=== PATIENT | male | born 1965 | race Caucasian/White ===

== ENCOUNTER 2016-10-01 18:59 | Inpatient (IN) | payer SELFPAY ==
[2016-10-01] VITALS (7 sets, daily range): BP systolic 146–168; BP diastolic 84–100
[~2016-10-01] VITALS: Ht 172.7 cm; Wt 101.2 kg
[~2016-10-01 18:59] MED LIST: AMIODARONE 150 MG/3 ML VIAL ONE; EPINEPHRINE 1 MG/10 ML SYRINGE. ONE
[2016-10-01] MEDS ORDERED: HEPARIN for IV BOLUS 10,000 UNIT/10 ML VIAL. ONE ×2 (19:13→19:34)
[2016-10-01] MEDS ORDERED: ASPIRIN 325 MG TABLET PO ONE (19:15)
[2016-10-01] MEDS ORDERED: HEPARIN for IV BOLUS 10,000 UNIT/10 ML VIAL. IV ONE (19:15)
[2016-10-01 19:19] LABS: BASO # 0.2 x10^3/uL (0.0-0.2); BASO % 1 % (0-3); EOS % 3 % (0-3); HEMATOCRIT 50.9 % (39.0-53.0); HEMOGLOBIN 17.6 g/dL (13.0-17.5); LYMPH # 4.1 x10^3/uL (1.0-4.8); LYMPH % 24 % (24-48); MEAN CORPUSCULAR HEMOGLOBIN 32 pg (25-35); MEAN CORPUSCULAR HGB CONC 35 g/dL (31-37); MEAN CORPUSCULAR VOLUME 93 fL (79-100); MONO % 6 % (0-9); NEUT % 66 % (31-73); PLATELET COUNT 214 x10^3/uL (140-400); RED BLOOD COUNT 5.47 x10^6/uL (4.30-5.70); RED CELL DISTRIBUTION WIDTH 13.6 % (11.5-14.5); WHITE BLOOD COUNT 17.2 x10^3/uL (4.0-11.0)
[2016-10-01] MEDS: NITROGLYCERIN SUBLINGUAL 0.4 MG BOTTLE OF 25. SL PRN ×2 (19:19→19:25)
--- NOTE | 2016-10-01 19:26 | PHYS DOC ---
Past Medical History Past Medical History: Asthma, CAD, High Cholesterol, Hypertension Past Surgical History: Angioplasty, Appendectomy, Coronary Bypass Surgery Additional Past Surgical Histo: Left shoulder replacementx2 Smoking: Cigarettes Alcohol Use: Occasionally Drug Use: None Adult General Chief Complaint Chief Complaint: CHEST PAIN-CARDIAC NATURE HPI HPI Patient is a 50 year old male who presents with central crushing chest pain radiating to left arm, associated with dyspnea. States this feels exactly like prior VT pain; states he has had approx 15 MIs in the past and followed at in the past. Was getting yearly cardiac caths, but did not in the past 2 years. He denies f/c, n/v, hemoptysis, leg pain or swelling, abdominal pain, back pain, headache, numbness, tingling, weakness. Review of Systems Review of Systems Constitutional: Denies fever or chills [] Eyes: Denies change in visual acuity, redness, or eye pain [] HENT: Denies nasal congestion or sore throat [] Respiratory: Denies cough [] Cardiovascular: No additional information not addressed in HPI [] GI: Denies abdominal pain, nausea, vomiting, bloody stools or diarrhea [] : Denies dysuria or hematuria [] Musculoskeletal: Denies back pain or joint pain [] Integument: Denies rash or skin lesions [] Neurologic: Denies headache, focal weakness or sensory changes [] Endocrine: Denies polyuria or polydipsia [] Current Medications Current Medications Current Medications Medications (Trade) Dose Ordered Sig/[place] Start Time Stop Time Status Last Admin Dose Admin Amiodarone HCl 150 mg/Dextrose 103 ml @ 618 mls/hr 1X ONCE 10/01/16 19:30 10/01/16 19:39 DC Amiodarone HCl 900 mg/Dextrose 518 ml @ 0 mls/hr CONT PRN 10/01/16 19:30 Aspirin (Dyana Aspirin) 325 mg 1X ONCE 10/01/16 19:15 10/01/16 19:16 DC 10/01/16 19:15 325 MG Bivalirudin (Angiomax) 250 mg STK-MED ONCE 10/01/16 19:34 10/01/16 19:35 DC Fentanyl Citrate (Fentanyl 5ml Vial) 250 mcg STK-MED ONCE 10/01/16 19:35 10/01/16 19:36 DC Heparin Sodium (Porcine) 10,000 unit STK-MED ONCE 10/01/16 19:34 10/01/16 19:35 DC Heparin Sodium/ Sodium Chloride 1,000 ml @ As Directed STK-MED ONCE 10/01/16 19:33 10/01/16 19:34 DC Iohexol (Omnipaque 350 Mg/ml) 100 ml STK-MED ONCE 10/01/16 19:43 10/01/16 19:44 DC Iohexol 100 ml 100 ml STK-MED ONCE 10/01/16 19:33 10/01/16 19:34 DC Lidocaine HCl 20 ml STK-MED ONCE 10/01/16 19:33 10/01/16 19:34 DC Magnesium Sulfate/ Dextrose (Magnesium Sulfate PREMIX 2GM) 50 ml @ 25 mls/hr 1X ONCE 10/01/16 19:30 10/01/16 21:29 Midazolam HCl (Versed) 5 mg STK-MED ONCE 10/01/16 19:34 10/01/16 19:35 DC Morphine Sulfate 5 mg 5 mg 1X ONCE 10/01/16 19:30 10/01/16 19:31 DC Nitroglycerin (Nitrostat) 0.4 mg PRN Q5MIN PRN 10/01/16 19:15 10/01/16 19:25 0.4 MG Allergies Allergies Allergies Coded Allergies Type Severity Reaction Last Updated Verified No Known Drug Allergies 10/01/16 No Physical Exam Physical Exam Constitutional: Well developed, well nourished, no acute distress, non-toxic appearance. [] HENT: Normocephalic, atraumatic, bilateral external ears normal, oropharynx moist, nose normal. [] Eyes: PERRLA, EOMI, conjunctiva normal, no discharge. [] Neck: Normal range of motion, no tenderness, supple, no stridor. [] Cardiovascular:Heart rate regular rhythm, no murmur, equal distal pulses [] Lungs & Thorax: Bilateral breath sounds clear to auscultation [] Abdomen: Bowel sounds normal, soft, no tenderness. [] Skin: Warm, dry, no erythema, no rash. [] Back: No tenderness, no CVA tenderness. [] Extremities: No tenderness, ROM intact, no edema. [] Neurologic: Alert and oriented X 3, normal motor function, normal sensory function, no focal deficits noted. [] Psychologic: Affect normal, judgement normal, mood normal. [] Current Patient Data Vital Signs Vital Signs Date Time Temp Pulse Resp B/P Pulse Ox O2 Delivery O2 Flow Rate FiO2 10/01/16 19:25 97 197/97 Lab Values Laboratory Tests Test 10/01/16 19:00 10/01/16 19:12 White Blood Count 17.2x10^3/uL (4.0-11.0) H Red Blood Count 5.47x10^6/uL (4.30-5.70) Hemoglobin 17.6g/dL (13.0-17.5) H Hematocrit 50.9% (39.0-53.0) Mean Corpuscular Volume 93fL (79-100) Mean Corpuscular Hemoglobin 32pg (25-35) Mean Corpuscular Hemoglobin Concent 35g/dL (31-37) Red Cell Distribution Width 13.6% (11.5-14.5) Platelet Count 214x10^3/uL (140-400) Neutrophils (%) (Auto) 66% (31-73) Lymphocytes (%) (Auto) 24% (24-48) Monocytes (%) (Auto) 6% (0-9) Eosinophils (%) (Auto) 3% (0-3) Basophils (%) (Auto) 1% (0-3) Neutrophils # (Auto) 11.4x10^3uL (1.8-7.7) H Lymphocytes # (Auto) 4.1x10^3/uL (1.0-4.8) Monocytes # (Auto) 0.9x10^3/uL (0.0-1.1) Eosinophils # (Auto) 0.6x10^3/uL (0.0-0.7) Basophils # (Auto) 0.2x10^3/uL (0.0-0.2) Sodium Level 143mmol/L (136-145) Potassium Level 3.7mmol/L (3.5-5.1) Chloride Level 105mmol/L (98-107) Carbon Dioxide Level 28mmol/L (21-32) Anion Gap 10 (6-14) Blood Urea Nitrogen 23mg/dL (8-26) Creatinine 1.2mg/dL (0.7-1.3) Estimated GFR (Cockcroft-Gault) 63.6 Glucose Level 105mg/dL (70-99) H Calcium Level 9.1mg/dL (8.5-10.1) POC Troponin I 0.00ng/ml (<0.08) Laboratory Tests 10/01/16 19:00 Laboratory Tests 10/01/16 19:00 EKG EKG EKG as interpreted by me consistent with STEMI, ST elevation in V3 and V4, mild depression and leads 1 and aVL, sinus rhythm with incomplete right bundle- branch block, normal intervals, no ectopy Course & Med Decision Making Course & Med Decision Making Pertinent Labs and Imaging studies reviewed. (See chart for details) Code STEMI was paged 1907. Discussed case with Dr. Britt, cardiology, at 1909. Patient was given SL nitro with some improvement in HTN to 190s. He was given ASA and Heparin bolus. He then had V tach arrest and was defibrillated x1 with <2min of chest compressions and had ROSC with return of normal mentation. Amiodarone 150mg bolus given, and amiodarone gtt ordered. Also ordered Magnesium 2g for concern of polymorphic V tach. Initial labs are unremarkable. He left the ED at 1942 to the Cardiac laboratory sampler with Dr. Britt. Discussed case with Dr. Cook, who will admit. Dragon Disclaimer Dragon Disclaimer This electronic medical record was generated, in whole or in part, using a voice recognition dictation system. Critical Care Time Critical care time was 35 minutes exclusive of procedures. Departure Departure Impression: Primary Impression: STEMI (ST elevation myocardial infarction) Additional Impressions: Ventricular tachyarrhythmia Cardiac arrest Disposition: ADMITTED INPATIENT Condition: CRITICAL Problem Qualifiers Primary Impression: STEMI (ST elevation myocardial infarction) Involved coronary artery: unspecified coronary artery Qualified Code: I21.3 - ST elevation (STEMI) myocardial infarction of unspecified site Meg VERMA MD Oct 01, 2016 19:25
[2016-10-01] MEDS ORDERED: AMIODARONE 150 MG in IV DEXTROSE 5% 100 ML IV ONE (19:30)
[2016-10-01] MEDS ORDERED: AMIODARONE 900 MG in IV DEXTROSE 5% 500 ML IV PRN (19:30)
[2016-10-01] MEDS ORDERED: MAGNESIUM SULFATE 2GM 50 ML IV ONE (19:30)
[2016-10-01] MEDS ORDERED: MORPHINE SULFATE 10 MG/ML VIAL. IV ONE (19:30)
[2016-10-01] MEDS ORDERED: LIDOCAINE 2% 20 ML VIAL. ONE (19:33)
[2016-10-01] MEDS ORDERED: IOHEXOL 350 MG/ML 100ML VIAL. ONE ×2 (19:33→19:43)
[2016-10-01] MEDS ORDERED: MIDAZOLAM HCL/PF 5 MG/5 ML VIAL ONE (19:34)
[2016-10-01] MEDS ORDERED: BIVALIRUDIN 250 MG VIAL. IV ONE (19:34)
[2016-10-01] MEDS ORDERED: FENTANYL PF 250 MCG/5 ML VIAL. ONE (19:35)
[2016-10-01 19:38] LABS: CALCIUM 9.1 mg/dL (8.5-10.1); CREATININE 1.2 mg/dL (0.7-1.3); GFR 63.6; POTASSIUM 3.7 mmol/L (3.5-5.1)
[2016-10-01] MEDS ORDERED: LIDOCAINE 2% 20 ML VIAL. IJ ONE (20:30)
[2016-10-01] MEDS ORDERED: FENTANYL PF 250 MCG/5 ML VIAL. IV ONE (20:30)
[2016-10-01] MEDS ORDERED: MIDAZOLAM HCL/PF 5 MG/5 ML VIAL IV ONE (20:30)
[2016-10-01] MEDS ORDERED: IOHEXOL 350 MG/ML 100ML VIAL. IART ONE (20:30)
--- NOTE | 2016-10-01 21:09 | PDOC2 ---
CONSULT Date of Consult Date of Consult DATE: 10/01/16 TIME: 20:57 Reason for Consult Reason for Consult: VT arrest, possible STEMI Referring Physician Referring Physician: Dr. Cook Identification/Chief Complaint Chief Complaint chest pain Source Source: Patient History of Present Illness Reason for Visit: The patient is a 50 year old male with a history of previous CABG, stents and MIs who presented to the ER with 45 minutes of chest pain. His EKG showed severe ST elevation in the anterior leads but there was no reciprocal depression. An STEMI was called. The patient was treated with ASA and heparin. His initial BP was greater than 150 and he was treated with NTG. The patient then had a VT arrest and received approx. 2 minutes of chest compressions and was cardioverted to a sinus rhythm. He was also treated with IV amniodarone. His rhythm stabilized but he continued to have chest pain. Past Medical History Cardiovascular: CAD, CHF, HTN, [place], Hyperlipidemia Pulmonary: Asthma Past Surgical History Past Surgical History: Appendectomy, CABG, Other (coronsry stents.) Family History Family History: Heart Disease Social History <1 pack per day ALCOHOL: occassional Current Problem List Problem List Problems Medical Problems: (1) Cardiac arrest Status: Acute (2) STEMI (ST elevation myocardial infarction) Status: Acute (3) Ventricular tachyarrhythmia Status: Acute Current Medications Current Medications Current Medications Nitroglycerin (Nitrostat) 0.4 mg PRN Q5MIN PRN SL CHEST PAIN Last administered on 10/01/16 19:25; Start 10/01/16 at 19:15 Aspirin (Dyana Aspirin) 325 mg 1X ONCE PO Last administered on 10/01/16 19:15 ; Start 10/01/16 at 19:15; Stop 10/01/16 at 19:16; Status DC Heparin Sodium (Porcine) 10,000 unit STK-MED ONCE .ROUTE ; Start 10/01/16 at 19: 13; Stop 10/01/16 at 19:14; Status DC Heparin Sodium (Porcine) 4,000 unit 1X ONCE IV Last administered on 10/01/16 19:19; Start 10/01/16 at 19:15; Stop 10/01/16 at 19:16; Status DC Morphine Sulfate 5 mg 5 mg 1X ONCE IV ; Start 10/01/16 at 19:30; Stop 10/01/16 at 19:31; Status DC Amiodarone HCl 150 mg/Dextrose 103 ml @ 618 mls/hr 1X ONCE IV Last administered on 10/01/16t 19:34; Start 10/01/16 at 19:30; Stop 10/01/16 at 19:39 ; Status DC Amiodarone HCl 900 mg/Dextrose 518 ml @ 0 mls/hr CONT PRN IV SEE I/O RECORD Last administered on 10/01/16t 19:52; Start 10/01/16 at 19:30; Stop 10/01/16 at 20:04; Status DC Magnesium Sulfate/ Dextrose (Magnesium Sulfate PREMIX 2GM) 50 ml @ 25 mls/hr 1X ONCE IV ; Start 10/01/16 at 19:30; Stop 10/01/16 at 21:29 Lidocaine HCl 20 ml STK-MED ONCE .ROUTE ; Start 10/01/16 at 19:33; Stop at 19:34; Status DC Iohexol 100 ml 100 ml STK-MED ONCE .ROUTE ; Start 10/01/16 at 19:33; Stop at 19:34; Status DC Heparin Sodium/ Sodium Chloride 1,000 ml @ As Directed STK-MED ONCE .ROUTE ; Start 10/01/16 at 19:33; Stop 10/01/16 at 19:34; Status DC Bivalirudin (Angiomax) 250 mg STK-MED ONCE IV ; Start 10/01/16 at 19:34; Stop at 19:35; Status DC Heparin Sodium (Porcine) 10,000 unit STK-MED ONCE .ROUTE ; Start 10/01/16 at 19: 34; Stop 10/01/16 at 19:35; Status DC Midazolam HCl (Versed) 5 mg STK-MED ONCE .ROUTE ; Start 10/01/16 at 19:34; Stop 10/01/16 at 19:35; Status DC Fentanyl Citrate (Fentanyl 5ml Vial) 250 mcg STK-MED ONCE .ROUTE ; Start at 19:35; Stop 10/01/16 at 19:36; Status DC Iohexol 100 ml 100 ml STK-MED ONCE .ROUTE ; Start 10/01/16 at 19:43; Stop at 19:44; Status DC Heparin Sodium/ Sodium Chloride 500 ml @ As Directed STK-MED ONCE .ROUTE ; Start 10/01/16 at 19:56; Stop 10/01/16 at 19:57; Status DC Heparin Sodium/ Sodium Chloride 1,000 unit 1X ONCE IART Last administered on 20:40; Start 10/01/16 at 20:30; Stop 10/01/16 at 20:31; Status DC Heparin Sodium/ Sodium Chloride 1,000 unit 1X ONCE IART Last administered on 20:40; Start 10/01/16 at 20:30; Stop 10/01/16 at 20:31; Status DC Midazolam HCl (Versed) 2 mg 1X ONCE IV Last administered on 10/01/16 20:40; Start 10/01/16 at 20:30; Stop 10/01/16 at 20:31; Status DC Fentanyl Citrate (Fentanyl 5ml Vial) 100 mcg 1X ONCE IV Last administered on 20:41; Start 10/01/16 at 20:30; Stop 10/01/16 at 20:31; Status DC Iohexol (Omnipaque 350 Mg/ml) 100 ml 1X ONCE IART Last administered on 20:40; Start 10/01/16 at 20:30; Stop 10/01/16 at 20:31; Status DC Lidocaine HCl 17 ml 1X ONCE IJ Last administered on 10/01/16 20:40; Start at 20:30; Stop 10/01/16 at 20:31; Status DC Allergies Allergies: Coded Allergies: No Known Drug Allergies (Unverified , 10/01/16) ROS Respiratory: YES: Shortness of breath Cardiovascular: yes Chest Pain Physical Exam General: moderate distress HEENT: Atraumatic Lungs: Clear to auscultation Heart: Regular rate Abdomen: Normal bowel sounds Extremities: No clubbing Psych/Mental Status: Mental status NL Vitals VITALS Vital Signs Date Time Temp Pulse Resp B/P Pulse Ox O2 Delivery O2 Flow Rate FiO2 10/01/16 20:42 85 18 96 Nasal Cannula 2.0 10/01/16 19:34 160/89 10/01/16 19:15 98 98.0 Labs Labs Laboratory Tests Test 10/01/16 19:00 10/01/16 19:12 White Blood Count 17.2x10^3/uL (4.0-11.0) Red Blood Count 5.47x10^6/uL (4.30-5.70) Hemoglobin 17.6g/dL (13.0-17.5) Hematocrit 50.9% (39.0-53.0) Mean Corpuscular Volume 93fL (79-100) Mean Corpuscular Hemoglobin 32pg (25-35) Mean Corpuscular Hemoglobin Concent 35g/dL (31-37) Red Cell Distribution Width 13.6% (11.5-14.5) Platelet Count 214x10^3/uL (140-400) Neutrophils (%) (Auto) 66% (31-73) Lymphocytes (%) (Auto) 24% (24-48) Monocytes (%) (Auto) 6% (0-9) Eosinophils (%) (Auto) 3% (0-3) Basophils (%) (Auto) 1% (0-3) Neutrophils # (Auto) 11.4x10^3uL (1.8-7.7) Lymphocytes # (Auto) 4.1x10^3/uL (1.0-4.8) Monocytes # (Auto) 0.9x10^3/uL (0.0-1.1) Eosinophils # (Auto) 0.6x10^3/uL (0.0-0.7) Basophils # (Auto) 0.2x10^3/uL (0.0-0.2) Sodium Level 143mmol/L (136-145) Potassium Level 3.7mmol/L (3.5-5.1) Chloride Level 105mmol/L (98-107) Carbon Dioxide Level 28mmol/L (21-32) Anion Gap 10 (6-14) Blood Urea Nitrogen 23mg/dL (8-26) Creatinine 1.2mg/dL (0.7-1.3) Estimated GFR (Cockcroft-Gault) 63.6 Glucose Level 105mg/dL (70-99) Calcium Level 9.1mg/dL (8.5-10.1) Troponin I Quantitative < 0.017ng/mL (0.000-0.055) WX-Uot-X-Type Natriuretic Peptide 304pg/mL (0-124) Bedside Troponin I 0.00ng/ml (<0.08) Laboratory Tests Test 10/01/16 19:00 10/01/16 19:12 White Blood Count 17.2x10^3/uL (4.0-11.0) Red Blood Count 5.47x10^6/uL (4.30-5.70) Hemoglobin 17.6g/dL (13.0-17.5) Hematocrit 50.9% (39.0-53.0) Mean Corpuscular Volume 93fL (79-100) Mean Corpuscular Hemoglobin 32pg (25-35) Mean Corpuscular Hemoglobin Concent 35g/dL (31-37) Red Cell Distribution Width 13.6% (11.5-14.5) Platelet Count 214x10^3/uL (140-400) Neutrophils (%) (Auto) 66% (31-73) Lymphocytes (%) (Auto) 24% (24-48) Monocytes (%) (Auto) 6% (0-9) Eosinophils (%) (Auto) 3% (0-3) Basophils (%) (Auto) 1% (0-3) Neutrophils # (Auto) 11.4x10^3uL (1.8-7.7) Lymphocytes # (Auto) 4.1x10^3/uL (1.0-4.8) Monocytes # (Auto) 0.9x10^3/uL (0.0-1.1) Eosinophils # (Auto) 0.6x10^3/uL (0.0-0.7) Basophils # (Auto) 0.2x10^3/uL (0.0-0.2) Sodium Level 143mmol/L (136-145) Potassium Level 3.7mmol/L (3.5-5.1) Chloride Level 105mmol/L (98-107) Carbon Dioxide Level 28mmol/L (21-32) Anion Gap 10 (6-14) Blood Urea Nitrogen 23mg/dL (8-26) Creatinine 1.2mg/dL (0.7-1.3) Estimated GFR (Cockcroft-Gault) 63.6 Glucose Level 105mg/dL (70-99) Calcium Level 9.1mg/dL (8.5-10.1) Troponin I Quantitative < 0.017ng/mL (0.000-0.055) ON-Run-Y-Type Natriuretic Peptide 304pg/mL (0-124) Bedside Troponin I 0.00ng/ml (<0.08) Assessment/Plan Assessment/Plan 1. VT arrest. probably on the basis of ischemia and poor LV function. Pt. cardioverted as above and on IV amnio. EKG is suggestive of a STEMI but has no reciprocal changes. The patient continues to have chest pain. The only medication he is now taking is ASA. Believe emergency cath is indicated. Risks and benefits discussed. The patient has agreed to cath. 2. Probable ischemic cardiomyopathy. Will restart medications. 3. Possible STEMI as above. 4. HTN. Restart medications. 5. Probable HLD. Statin and lipid panel. 6. Medical noncompliance. SHELBI MCLEAN MD Oct 01, 2016 21:08
--- NOTE | 2016-10-01 21:13 | PDOC4 ---
Operative Note Operative Note Brief cath note AO. 160/98 Left main. > 80% lesion. LAD. Proximal > 90% lesion. LCX. Mid 75%. Occluded OM1. RCA. Mid stent. Chronic occlusion. Grafts GONSALEZ patent to LAD. SVG patent to OM1 and PDA SVG patent to small RCA. LV gram deferred due to episode of VT. No acute intervention. Continue on amio and restart baseline medications. Morning ECHO. Review of films for possible future intervention. Discussed with phil patient and family. Full report to follow. SHELBI MCLEAN MD Oct 01, 2016 21:13
[2016-10-01] MEDS ORDERED: ASPI81TA2 PO (21:14)
[2016-10-01] MEDS ORDERED: ONDANSETRON PF 4 MG/2 ML VIAL. IV PRN (21:15)
[2016-10-01] MEDS ORDERED: 0.9 % SODIUM CHLORIDE 10 ML DISP.SYRIN. IV PRN (21:15)
[2016-10-01] MEDS ORDERED: NITROGLYCERIN SUBLINGUAL 0.4 MG BOTTLE OF 25. SL PRN (21:15)
[2016-10-01] MEDS: FENTANYL PF 100 MCG/2 ML VIAL. IV PRN (21:34)
[2016-10-01] MEDS: HYDROCODONE/APAP 5/325MG TABLET. PO PRN (21:34)
[2016-10-01] MEDS: ATORVASTATIN CALCIUM 20 MG TABLET PO SCH (21:35)
[2016-10-01] MEDS: METOPROLOL TART IMMED RELEASE 25 MG TABLET PO SCH (21:35)
[2016-10-01] MEDS: IV NORMAL SALINE 1000ML BAG 1,000 ML IV SCH (21:36)
[2016-10-01] MEDS ORDERED: MAGNESIUM SULFATE 1GM 100 ML IV ONE (22:30)
[2016-10-01] MEDS ORDERED: HYDROMORPHONE 2 MG/ML VIAL. IV ONE (23:00)
--- NOTE | 2016-10-01 23:24 | HP ---
ADMIT DATE: 10/01/2016 CHIEF COMPLAINT: Cardiac arrest in the ER. HISTORY OF PRESENT ILLNESS: The patient is a 50-year-old gentleman with multi-substance abuse who presented with a central crushing chest pain radiating to the left arm to the Emergency Room. This was accompanied by dyspnea. He states that this felt exactly like his previous ND pain, actually has had according to him 15 in the past, first one at age 21 associated with cocaine use. He typically gets his care at . He did undergo CABG several years ago and has had multiple caths in the past; however, none in the past 2 years. In the Emergency Room, he actually underwent a ventricular fibrillation arrest with his EKG changes consistent with STEMI. He was emergently taken to the optical laboratory mechanic by Dr. Britt for catheterization and is now back in the ICU for recovery. PAST MEDICAL HISTORY: CAD, status post multiple MIs; CABG, cath, hypertension, hypercholesterolemia, asthma/COPD, hypertension, hyperlipidemia, status post left shoulder replacement x 2. FAMILY HISTORY: Positive for father with CAD, multiple family members with cancer including brother with liver (HCV positive), mother of lung cancer (smoker). 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 Denies any ongoing illicit drug use, but history of cocaine. ALLERGIES: No known drug allergies. MEDICATIONS: The patient states he cannot afford any medications, takes only aspirin. REVIEW OF SYSTEMS: Currently, no chest pain, no shortness of breath, no diaphoresis. He does have a headache, which did not respond to morphine IV. Rest of organ system review is essentially negative. PHYSICAL EXAMINATION: VITAL SIGNS: Currently show blood pressure of 158/99, heart rate of 83, respiratory rate at 15. He is afebrile. GENERAL: This is a 50-year-old obese gentleman, awake, alert, in no acute distress. HEENT: Shows no scleral icterus. NECK: Supple. LUNGS: Fairly clear. CARDIOVASCULAR: Heart is regular rate and rhythm. ABDOMEN: Positive bowel sounds. Mild tenderness to palpation in the epigastric area. EXTREMITIES: Show no edema. Bruising as well as hemosiderin deposits over both upper distal extremities. SKIN: Warm, soft and dry. LABORATORY DATA: CBC with a WBC of 17.5, hemoglobin of 17.6, platelets of 214. Chemistries with a BUN and creatinine of 23 and 1.2. Initial troponin was negative. BNP 304. Chest x-ray obtained in the Emergency Room and reviewed by myself reveals mild venous congestion in lower lung mora. ASSESSMENT AND PLAN: The patient is a 50-year-old gentleman presenting with a ST-elevation myocardial infarction. He has been taken to the optical laboratory mechanic by Dr. Britt with at least partially occluded lesions. LV gram was deferred due to episode of ventricular tachycardia. The patient is now in the ICU under close observation. Today, he has been started on heparin. We will defer to Cardiology for further evaluation. Echo is planned. The patient clearly should be on multiple medications, which he declines to take/claims he does not have funds for them. Tobacco cessation as well as alcohol cessation was strongly urged. The patient clearly has heard these suggestions in the past and is not amenable to change in his lifestyle. We will defer to Cardiology for further medication management. THOMAS RIBERA MD DR: AUSTYN/nts JOB#: [id number] / [id number]
[2016-10-02] VITALS (25 sets, daily range): BP systolic 92–177; BP diastolic 54–112
[2016-10-02] MEDS ORDERED: FENTANYL PF 100 MCG/2 ML VIAL. ONE ×2 (01:59→04:00)
[2016-10-02] MEDS: FENTANYL PF 100 MCG/2 ML VIAL. IV PRN ×5 (02:01→11:23)
[2016-10-02] MEDS: HYDROCODONE/APAP 5/325MG TABLET. PO PRN ×3 (02:01→22:18)
[2016-10-02] MEDS ORDERED: ONDANSETRON PF 4 MG/2 ML VIAL. IV PRN (04:48)
[2016-10-02 05:34] LABS: BASO # 0.1 x10^3/uL (0.0-0.2); BASO % 1 % (0-3); EOS % 3 % (0-3); HEMATOCRIT 46.7 % (39.0-53.0); HEMOGLOBIN 16.5 g/dL (13.0-17.5); LYMPH # 3.4 x10^3/uL (1.0-4.8); LYMPH % 24 % (24-48); MEAN CORPUSCULAR HEMOGLOBIN 33 pg (25-35); MEAN CORPUSCULAR HGB CONC 35 g/dL (31-37); MEAN CORPUSCULAR VOLUME 92 fL (79-100); MONO % 6 % (0-9); NEUT % 66 % (31-73); PLATELET COUNT 187 x10^3/uL (140-400); RED BLOOD COUNT 5.08 x10^6/uL (4.30-5.70); RED CELL DISTRIBUTION WIDTH 13.4 % (11.5-14.5)
[2016-10-02 06:06] LABS: ALBUMIN 3.5 g/dL (3.4-5.0); CALCIUM 8.3 mg/dL (8.5-10.1); CREATININE 0.9 mg/dL (0.7-1.3); DIRECT BILIRUBIN 0.2 mg/dL (0.0-0.2); GFR 88.6; MAGNESIUM 2.1 mg/dL (1.8-2.4); POTASSIUM 3.4 mmol/L (3.5-5.1); TOTAL BILIRUBIN 0.8 mg/dL (0.2-1.0); TOTAL PROTEIN 6.4 g/dL (6.4-8.2)
[2016-10-02 06:11] LABS: CHOLESTEROL/HDL RATIO 4.7
--- NOTE | 2016-10-02 06:34 | EKG ---
[facility] [address] [place] [address] Test Date: 2016-10-01 Test Time: 19:06:12 Pat Name: VIRGILIO LARSON Department: Room: 115 1 Gender: M Help Desk Technician: : 1965 Requested By: Meg VERMA Order Number: [id number] Reading MD: Zahra Ricks Measurements Intervals Moore Rate: 95 P: 52 RI: 134 QRS: 35 QRSD: 104 T: 86 QT: 358 QTc: 453 Interpretive Statements SINUS RHYTHM ACUTE ST ELEVATION ANTERIOR WALL MYOCARDIAL INFARCTION INCOMPLETE RIGHT BUNDLE BRANCH BLOCK QRS(T) CONTOUR ABNORMALITY CONSISTENT WITH INFERIOR INFARCT PROBABLY OLD RI6.01 No previous ECG available for comparison Electronically Signed On 10-05-2016 18:09:04 CDT by Zahra Ricsk
--- NOTE | 2016-10-02 07:17 | RAD ---
EXAM: Chest, single view. HISTORY: Cardiac arrest. COMPARISON: None. FINDINGS: A frontal view of the chest is obtained. There is no infiltrate, effusion or pneumothorax. The heart is mildly enlarged. There are findings consistent with CABG. IMPRESSION: Mild cardiomegaly and evidence of prior CABG. No acute pulmonary finding.
[2016-10-02] MEDS: ASPIRIN ENTERIC COATED 325 MG TABLET.DR. PO SCH (08:54)
[2016-10-02] MEDS: METOPROLOL TART IMMED RELEASE 25 MG TABLET PO SCH (08:55)
[2016-10-02] MEDS ORDERED: LISINOPRIL 5 MG TABLET. PO SCH (09:00)
--- NOTE | 2016-10-02 09:45 | EKG ---
[facility] [address] [place] [address] Test Date: 2016-10-02 Test Time: 09:43:53 Pat Name: VIRGILIO LARSON Department: Room: 115 1 Gender: M Qual Research Manager: RADHA : [id number] Requested By: SHELBI MCLEAN Order Number: [id number] Reading MD: Zahra Ricks Measurements Intervals [place] Rate: 64 P: 41 MS: 154 QRS: 0 QRSD: 104 T: 52 QT: 442 QTc: 460 Interpretive Statements SINUS RHYTHM LEFTWARD AXIS QRS(T) CONTOUR ABNORMALITY CONSISTENT WITH INFERIOR INFARCT CONSISTENT WITH ANTEROLATERAL WALL PROBABLY OLD ABNORMAL ECG RI6.01 No previous ECG available for comparison Electronically Signed On 10-05-2016 18:34:52 CDT by Zahra Ricks
[2016-10-02] MEDS ORDERED: POTASSIUM CHLORIDE 20 MEQ TABLET.ER. PO ONE (10:45)
--- NOTE | 2016-10-02 11:04 | PDOC ---
PROGRESS NOTES Chief Complaint Chief Complaint Cardiac arrest in the ER. - suspected STEMI; h/o multiple MA - CAD - hypertension - hypercholesterolemia - asthma/COPD - multi-substance abuse History of Present Illness History of Present Illness Patient resting in ICU bed when evaluated this AM. Complaining of pain of the ribs 2/2 to last night's chest compressions. Otherwise he denies cardiogenic chest pain, palpitations, or shortness of air. Has also complained of headache this morning. Discussed case with RN. Emergent cath performed last night without incident. To this point, patient has not been responsive to discussions of lifestyle changes. Repeat troponin negative. Vitals Vitals Vital Signs Date Time Temp Pulse Resp B/P Pulse Ox O2 Delivery O2 Flow Rate FiO2 10/02/16 08:55 75 177/99 10/02/16 08:52 18 96 Room Air 10/02/16 06:59 2.0 10/02/16 04:00 98.8 98.8 Physical Exam General: Alert, Cooperative, mild distress Heart: Regular rate, Normal S1 Lungs: Clear Abdomen: Normal bowel sounds Extremities: No cyanosis, No edema Skin: No significant lesion Labs LABS Laboratory Tests Test 10/01/16 19:00 10/01/16 19:10 10/01/16 19:12 10/02/16 05:00 White Blood Count 17.2x10^3/uL (4.0-11.0) 14.0x10^3/uL (4.0-11.0) Red Blood Count 5.47x10^6/uL (4.30-5.70) 5.08x10^6/uL (4.30-5.70) Hemoglobin 17.6g/dL (13.0-17.5) 16.5g/dL (13.0-17.5) Hematocrit 50.9% (39.0-53.0) 46.7% (39.0-53.0) Mean Corpuscular Volume 93fL (79-100) 92fL (79-100) Mean Corpuscular Hemoglobin 32pg (25-35) 33pg (25-35) Mean Corpuscular Hemoglobin Concent 35g/dL (31-37) 35g/dL (31-37) Red Cell Distribution Width 13.6% (11.5-14.5) 13.4% (11.5-14.5) Platelet Count 214x10^3/uL (140-400) 187x10^3/uL (140-400) Neutrophils (%) (Auto) 66% (31-73) 66% (31-73) Lymphocytes (%) (Auto) 24% (24-48) 24% (24-48) Monocytes (%) (Auto) 6% (0-9) 6% (0-9) Eosinophils (%) (Auto) 3% (0-3) 3% (0-3) Basophils (%) (Auto) 1% (0-3) 1% (0-3) Neutrophils # (Auto) 11.4x10^3uL (1.8-7.7) 9.2x10^3uL (1.8-7.7) Lymphocytes # (Auto) 4.1x10^3/uL (1.0-4.8) 3.4x10^3/uL (1.0-4.8) Monocytes # (Auto) 0.9x10^3/uL (0.0-1.1) 0.9x10^3/uL (0.0-1.1) Eosinophils # (Auto) 0.6x10^3/uL (0.0-0.7) 0.4x10^3/uL (0.0-0.7) Basophils # (Auto) 0.2x10^3/uL (0.0-0.2) 0.1x10^3/uL (0.0-0.2) Sodium Level 143mmol/L (136-145) 139mmol/L (136-145) Potassium Level 3.7mmol/L (3.5-5.1) 3.4mmol/L (3.5-5.1) Chloride Level 105mmol/L (98-107) 104mmol/L (98-107) Carbon Dioxide Level 28mmol/L (21-32) 25mmol/L (21-32) Anion Gap 10 (6-14) 10 (6-14) Blood Urea Nitrogen 23mg/dL (8-26) 22mg/dL (8-26) Creatinine 1.2mg/dL (0.7-1.3) 0.9mg/dL (0.7-1.3) Estimated GFR (Cockcroft-Gault) 63.6 88.6 Glucose Level 105mg/dL (70-99) 93mg/dL (70-99) Calcium Level 9.1mg/dL (8.5-10.1) 8.3mg/dL (8.5-10.1) Troponin I Quantitative < 0.017ng/mL (0.000-0.055) VL-Dpx-G-Type Natriuretic Peptide 304pg/mL (0-124) Magnesium Level 1.9mg/dL (1.8-2.4) 2.1mg/dL (1.8-2.4) Bedside Troponin I 0.00ng/ml (<0.08) Total Bilirubin 0.8mg/dL (0.2-1.0) Direct Bilirubin 0.2mg/dL (0.0-0.2) Aspartate Amino Transf (AST/SGOT) 32U/L (15-37) Alanine Aminotransferase (ALT/SGPT) 38U/L (16-63) Alkaline Phosphatase 74U/L (46-116) Total Protein 6.4g/dL (6.4-8.2) Albumin 3.5g/dL (3.4-5.0) Triglycerides Level 138mg/dL (0-150) Cholesterol Level 182mg/dL (0-200) LDL Cholesterol, Calculated 115mg/dL (0-100) VLDL Cholesterol, Calculated 28mg/dL (0-40) HDL Cholesterol 39mg/dL (40-60) Cholesterol/HDL Ratio 4.7 Review of Systems Review of Systems denies fever, chills denies cardiogenic chest pain, palpitations, shortness of air + pain of the ribs 2/2 to last night's chest compressions + headache Assessment and Plan Assessmemt and Plan Problems Medical Problems: (1) Cardiac arrest Status: Acute (2) STEMI (ST elevation myocardial infarction) Status: Acute (3) Ventricular tachyarrhythmia Status: Acute ASSESSMENT: - cardiac arrest in the ER. - suspected STEMI; h/o multiple MA - CAD - hypertension - hypercholesterolemia - asthma/COPD - multi-substance abuse; alcohol, tobacco, reportedly distant illicit drug use - non-compliance 2/2 social barriers PLAN: - KCl 40 mEq PO for K+ 3.4 - cont pain control - hoping to switch to PO Amiodarone - emergent cath performed last night without incident; appreciate cardiology on the case - repeat troponin negative; BNP 304. - repeat daily labs - PTOT - patient has not been responsive to discussions of lifestyle changes; perhaps will revisit the topic later this admission Problems: Comment Review of Relevant I have reviewed the following items josefina (where applicable) has been applied. Labs Laboratory Tests Test 10/01/16 19:00 10/01/16 19:10 10/01/16 19:12 10/02/16 05:00 White Blood Count 17.2x10^3/uL (4.0-11.0) 14.0x10^3/uL (4.0-11.0) Red Blood Count 5.47x10^6/uL (4.30-5.70) 5.08x10^6/uL (4.30-5.70) Hemoglobin 17.6g/dL (13.0-17.5) 16.5g/dL (13.0-17.5) Hematocrit 50.9% (39.0-53.0) 46.7% (39.0-53.0) Mean Corpuscular Volume 93fL (79-100) 92fL (79-100) Mean Corpuscular Hemoglobin 32pg (25-35) 33pg (25-35) Mean Corpuscular Hemoglobin Concent 35g/dL (31-37) 35g/dL (31-37) Red Cell Distribution Width 13.6% (11.5-14.5) 13.4% (11.5-14.5) Platelet Count 214x10^3/uL (140-400) 187x10^3/uL (140-400) Neutrophils (%) (Auto) 66% (31-73) 66% (31-73) Lymphocytes (%) (Auto) 24% (24-48) 24% (24-48) Monocytes (%) (Auto) 6% (0-9) 6% (0-9) Eosinophils (%) (Auto) 3% (0-3) 3% (0-3) Basophils (%) (Auto) 1% (0-3) 1% (0-3) Neutrophils # (Auto) 11.4x10^3uL (1.8-7.7) 9.2x10^3uL (1.8-7.7) Lymphocytes # (Auto) 4.1x10^3/uL (1.0-4.8) 3.4x10^3/uL (1.0-4.8) Monocytes # (Auto) 0.9x10^3/uL (0.0-1.1) 0.9x10^3/uL (0.0-1.1) Eosinophils # (Auto) 0.6x10^3/uL (0.0-0.7) 0.4x10^3/uL (0.0-0.7) Basophils # (Auto) 0.2x10^3/uL (0.0-0.2) 0.1x10^3/uL (0.0-0.2) Sodium Level 143mmol/L (136-145) 139mmol/L (136-145) Potassium Level 3.7mmol/L (3.5-5.1) 3.4mmol/L (3.5-5.1) Chloride Level 105mmol/L (98-107) 104mmol/L (98-107) Carbon Dioxide Level 28mmol/L (21-32) 25mmol/L (21-32) Anion Gap 10 (6-14) 10 (6-14) Blood Urea Nitrogen 23mg/dL (8-26) 22mg/dL (8-26) Creatinine 1.2mg/dL (0.7-1.3) 0.9mg/dL (0.7-1.3) Estimated GFR (Cockcroft-Gault) 63.6 88.6 Glucose Level 105mg/dL (70-99) 93mg/dL (70-99) Calcium Level 9.1mg/dL (8.5-10.1) 8.3mg/dL (8.5-10.1) Troponin I Quantitative < 0.017ng/mL (0.000-0.055) HZ-Aqn-T-Type Natriuretic Peptide 304pg/mL (0-124) Magnesium Level 1.9mg/dL (1.8-2.4) 2.1mg/dL (1.8-2.4) Bedside Troponin I 0.00ng/ml (<0.08) Total Bilirubin 0.8mg/dL (0.2-1.0) Direct Bilirubin 0.2mg/dL (0.0-0.2) Aspartate Amino Transf (AST/SGOT) 32U/L (15-37) Alanine Aminotransferase (ALT/SGPT) 38U/L (16-63) Alkaline Phosphatase 74U/L (46-116) Total Protein 6.4g/dL (6.4-8.2) Albumin 3.5g/dL (3.4-5.0) Triglycerides Level 138mg/dL (0-150) Cholesterol Level 182mg/dL (0-200) LDL Cholesterol, Calculated 115mg/dL (0-100) VLDL Cholesterol, Calculated 28mg/dL (0-40) HDL Cholesterol 39mg/dL (40-60) Cholesterol/HDL Ratio 4.7 Laboratory Tests Test 10/01/16 19:00 10/01/16 19:10 10/01/16 19:12 10/02/16 05:00 White Blood Count 17.2x10^3/uL (4.0-11.0) 14.0x10^3/uL (4.0-11.0) Red Blood Count 5.47x10^6/uL (4.30-5.70) 5.08x10^6/uL (4.30-5.70) Hemoglobin 17.6g/dL (13.0-17.5) 16.5g/dL (13.0-17.5) Hematocrit 50.9% (39.0-53.0) 46.7% (39.0-53.0) Mean Corpuscular Volume 93fL (79-100) 92fL (79-100) Mean Corpuscular Hemoglobin 32pg (25-35) 33pg (25-35) Mean Corpuscular Hemoglobin Concent 35g/dL (31-37) 35g/dL (31-37) Red Cell Distribution Width 13.6% (11.5-14.5) 13.4% (11.5-14.5) Platelet Count 214x10^3/uL (140-400) 187x10^3/uL (140-400) Neutrophils (%) (Auto) 66% (31-73) 66% (31-73) Lymphocytes (%) (Auto) 24% (24-48) 24% (24-48) Monocytes (%) (Auto) 6% (0-9) 6% (0-9) Eosinophils (%) (Auto) 3% (0-3) 3% (0-3) Basophils (%) (Auto) 1% (0-3) 1% (0-3) Neutrophils # (Auto) 11.4x10^3uL (1.8-7.7) 9.2x10^3uL (1.8-7.7) Lymphocytes # (Auto) 4.1x10^3/uL (1.0-4.8) 3.4x10^3/uL (1.0-4.8) Monocytes # (Auto) 0.9x10^3/uL (0.0-1.1) 0.9x10^3/uL (0.0-1.1) Eosinophils # (Auto) 0.6x10^3/uL (0.0-0.7) 0.4x10^3/uL (0.0-0.7) Basophils # (Auto) 0.2x10^3/uL (0.0-0.2) 0.1x10^3/uL (0.0-0.2) Sodium Level 143mmol/L (136-145) 139mmol/L (136-145) Potassium Level 3.7mmol/L (3.5-5.1) 3.4mmol/L (3.5-5.1) Chloride Level 105mmol/L (98-107) 104mmol/L (98-107) Carbon Dioxide Level 28mmol/L (21-32) 25mmol/L (21-32) Anion Gap 10 (6-14) 10 (6-14) Blood Urea Nitrogen 23mg/dL (8-26) 22mg/dL (8-26) Creatinine 1.2mg/dL (0.7-1.3) 0.9mg/dL (0.7-1.3) Estimated GFR (Cockcroft-Gault) 63.6 88.6 Glucose Level 105mg/dL (70-99) 93mg/dL (70-99) Calcium Level 9.1mg/dL (8.5-10.1) 8.3mg/dL (8.5-10.1) Troponin I Quantitative < 0.017ng/mL (0.000-0.055) DO-Ino-I-Type Natriuretic Peptide 304pg/mL (0-124) Magnesium Level 1.9mg/dL (1.8-2.4) 2.1mg/dL (1.8-2.4) Bedside Troponin I 0.00ng/ml (<0.08) Total Bilirubin 0.8mg/dL (0.2-1.0) Direct Bilirubin 0.2mg/dL (0.0-0.2) Aspartate Amino Transf (AST/SGOT) 32U/L (15-37) Alanine Aminotransferase (ALT/SGPT) 38U/L (16-63) Alkaline Phosphatase 74U/L (46-116) Total Protein 6.4g/dL (6.4-8.2) Albumin 3.5g/dL (3.4-5.0) Triglycerides Level 138mg/dL (0-150) Cholesterol Level 182mg/dL (0-200) LDL Cholesterol, Calculated 115mg/dL (0-100) VLDL Cholesterol, Calculated 28mg/dL (0-40) HDL Cholesterol 39mg/dL (40-60) Cholesterol/HDL Ratio 4.7 Medications Current Medications Nitroglycerin (Nitrostat) 0.4 mg PRN Q5MIN PRN SL CHEST PAIN Last administered on 10/01/16 19:25; Start 10/01/16 at 19:15 Aspirin (Dyana Aspirin) 325 mg 1X ONCE PO Last administered on 10/01/16 19:15 ; Start 10/01/16 at 19:15; Stop 10/01/16 at 19:16; Status DC Heparin Sodium (Porcine) 10,000 unit STK-MED ONCE .ROUTE ; Start 10/01/16 at 19: 13; Stop 10/01/16 at 19:14; Status DC Heparin Sodium (Porcine) 4,000 unit 1X ONCE IV Last administered on 10/01/16 19:19; Start 10/01/16 at 19:15; Stop 10/01/16 at 19:16; Status DC Morphine Sulfate 5 mg 5 mg 1X ONCE IV ; Start 10/01/16 at 19:30; Stop 10/01/16 at 19:31; Status DC Amiodarone HCl 150 mg/Dextrose 103 ml @ 618 mls/hr 1X ONCE IV Last administered on 10/01/16t 19:34; Start 10/01/16 at 19:30; Stop 10/01/16 at 19:39 ; Status DC Amiodarone HCl 900 mg/Dextrose 518 ml @ 0 mls/hr CONT PRN IV SEE I/O RECORD Last administered on 10/01/16t 19:52; Start 10/01/16 at 19:30; Stop 10/01/16 at 20:04; Status DC Magnesium Sulfate/ Dextrose (Magnesium Sulfate PREMIX 2GM) 50 ml @ 25 mls/hr 1X ONCE IV ; Start 10/01/16 at 19:30; Stop 10/01/16 at 21:29; Status DC Lidocaine HCl 20 ml STK-MED ONCE .ROUTE ; Start 10/01/16 at 19:33; Stop at 19:34; Status DC Iohexol 100 ml 100 ml STK-MED ONCE .ROUTE ; Start 10/01/16 at 19:33; Stop at 19:34; Status DC Heparin Sodium/ Sodium Chloride 1,000 ml @ As Directed STK-MED ONCE .ROUTE ; Start 10/01/16 at 19:33; Stop 10/01/16 at 19:34; Status DC Bivalirudin (Angiomax) 250 mg STK-MED ONCE IV ; Start 10/01/16 at 19:34; Stop at 19:35; Status DC Heparin Sodium (Porcine) 10,000 unit STK-MED ONCE .ROUTE ; Start 10/01/16 at 19: 34; Stop 10/01/16 at 19:35; Status DC Midazolam HCl (Versed) 5 mg STK-MED ONCE .ROUTE ; Start 10/01/16 at 19:34; Stop 10/01/16 at 19:35; Status DC Fentanyl Citrate (Fentanyl 5ml Vial) 250 mcg STK-MED ONCE .ROUTE ; Start at 19:35; Stop 10/01/16 at 19:36; Status DC Iohexol 100 ml 100 ml STK-MED ONCE .ROUTE ; Start 10/01/16 at 19:43; Stop at 19:44; Status DC Heparin Sodium/ Sodium Chloride 500 ml @ As Directed STK-MED ONCE .ROUTE ; Start 10/01/16 at 19:56; Stop 10/01/16 at 19:57; Status DC Heparin Sodium/ Sodium Chloride 1,000 unit 1X ONCE IART Last administered on 20:40; Start 10/01/16 at 20:30; Stop 10/01/16 at 20:31; Status DC Heparin Sodium/ Sodium Chloride 1,000 unit 1X ONCE IART Last administered on 20:40; Start 10/01/16 at 20:30; Stop 10/01/16 at 20:31; Status DC Midazolam HCl (Versed) 2 mg 1X ONCE IV Last administered on 10/01/16 20:40; Start 10/01/16 at 20:30; Stop 10/01/16 at 20:31; Status DC Fentanyl Citrate (Fentanyl 5ml Vial) 100 mcg 1X ONCE IV Last administered on 20:41; Start 10/01/16 at 20:30; Stop 10/01/16 at 20:31; Status DC Iohexol (Omnipaque 350 Mg/ml) 100 ml 1X ONCE IART Last administered on 20:40; Start 10/01/16 at 20:30; Stop 10/01/16 at 20:31; Status DC Lidocaine HCl 17 ml 1X ONCE IJ Last administered on 10/01/16 20:40; Start at 20:30; Stop 10/01/16 at 20:31; Status DC Sodium Chloride 3 ml 3 ml QSHIFT PRN IV AFTER MEDS AND BLOOD DRAWS; Start 10/01 at 21:15 Sodium Chloride (Iv Sodium Chloride 0.9% 1000ml Bag) 1,000 ml @ 50 mls/hr Q20H IV Last administered on 10/01/16 21:36; Start 10/01/16 at 21:14 Aspirin (Ecotrin) 325 mg [id number] PO Last administered on 10/02/16 08:54; Start 10/02/16 at 08:00 Metoprolol Tartrate (Lopressor) 12.5 mg BID PO Last administered on 10/02/16 08:55; Start 10/01/16 at 22:00 Lisinopril (Prinivil) 5 mg DAILY PO ; Start 10/02/16 at 09:00 Atorvastatin Calcium (Lipitor) 20 mg QHS PO Last administered on 10/01/16 21: 35; Start 10/01/16 at 22:00 Fentanyl Citrate (Fentanyl 2ml Vial) 50 mcg PRN Q1HR PRN IV Moderate or severe pain Last administered on 10/02/16 04:03; Start 10/01/16 at 21:15; Stop at 04:48; Status DC Ondansetron HCl (Zofran) 4 mg PRN Q6HRS PRN IV NAUSEA/VOMITING; Start 10/01/16 at 21:15; Stop 10/02/16 at 04:48; Status DC Nitroglycerin (Nitrostat) 0.4 mg PRN Q5MIN PRN SL CHEST PAIN; Start 10/01/16 at 21:15; Status UNV Acetaminophen/ Hydrocodone Bitart 1 tab 1 tab PRN Q4HRS PRN PO MILD PAIN Last administered on 10/02/16 06:29; Start 10/01/16 at 21:15 Magnesium Sulfate/ Dextrose (Magnesium Sulfate PREMIX 1GM) 100 ml @ 100 mls/hr 1X ONCE IV Last administered on 10/01/16 22:58; Start 10/01/16 at 22:30; Stop 10/01/16 at 23:29; Status DC Hydromorphone HCl (Dilaudid) 0.5 mg 1X ONCE IV Last administered on 10/01/16 22:59; Start 10/01/16 at 23:00; Stop 10/01/16 at 23:01; Status DC Fentanyl Citrate (Fentanyl 2ml Vial) 100 mcg STK-MED ONCE .ROUTE ; Start at 01:59; Stop 10/02/16 at 02:00; Status DC Fentanyl Citrate (Fentanyl 2ml Vial) 100 mcg STK-MED ONCE .ROUTE ; Start at 04:00; Stop 10/02/16 at 04:01; Status DC Fentanyl Citrate (Fentanyl 2ml Vial) 50 mcg PRN Q1HR PRN IV Moderate or severe pain Last administered on 10/02/16 08:52; Start 10/02/16 at 04:48 Ondansetron HCl (Zofran) 4 mg PRN Q6HRS PRN IV NAUSEA/VOMITING; Start 10/02/16 at 04:48 Active Scripts Active Reported Aspirin 81 Mg Tab.chew 1 Tab PO DAILY Vitals/I & O Vital Sign - Last 24 Hours 10/01/16 10/01/16 10/01/16 10/01/16 19:05 19:10 19:15 19:15 Temp 98 98.0 Pulse 106 96 106 100 Resp 22 B/P 225/122 203/128 225/122 191/105 Pulse Ox 98 97 99 O2 Delivery Room Air Room Air Room Air 10/01/16 10/01/16 10/01/16 10/01/16 19:19 19:20 19:25 19:25 Pulse 101 108 97 114 B/P 181/113 189/102 197/97 228/105 Pulse Ox 96 97 O2 Delivery Room Air Room Air 10/01/16 10/01/16 10/01/16 10/01/16 19:30 19:34 19:35 19:40 Pulse 94 106 106 96 B/P 160/89 160/89 161/91 Pulse Ox 98 97 96 O2 Delivery Nasal Cannula Nasal Cannula Nasal Cannula O2 Flow Rate 2 2 2 10/01/16 10/01/16 10/01/16 10/01/16 20:41 20:42 20:45 21:00 Temp 98.8 98.8 Pulse 85 86 Resp 18 18 18 18 Pulse Ox 96 96 95 95 O2 Delivery Nasal Cannula Nasal Cannula Room Air Room Air O2 Flow Rate 2.0 2.0 10/01/16 10/01/16 10/01/16 10/01/16 21:00 21:15 21:30 21:34 Pulse 84 84 90 Resp 19 21 26 25 B/P 155/94 168/100 158/99 Pulse Ox 94 94 95 95 O2 Delivery Room Air Room Air Room Air Room Air 10/01/16 10/01/16 10/01/16 10/01/16 21:34 21:35 22:00 22:30 Pulse 83 76 74 Resp 25 26 16 B/P 158/99 163/93 146/88 Pulse Ox 95 95 92 O2 Delivery Room Air Room Air Room Air 10/01/16 10/01/16 10/01/16 10/01/16 22:36 22:59 23:00 23:29 Pulse 68 Resp 16 17 13 B/P 148/84 Pulse Ox 93 92 95 O2 Delivery Room Air Room Air Room Air Nasal Cannula O2 Flow Rate 2.0 10/01/16 10/02/16 10/02/1617 23:59 00:00 01:00 02:00 Temp 98.9 98.9 Pulse 70 68 71 Resp 12 24 B/P 131/89 124/85 117/71 Pulse Ox 96 96 96 O2 Delivery Room Air Nasal Cannula Nasal Cannula Nasal Cannula O2 Flow Rate 2.0 2.0 2.0 10/02/16 10/02/16 10/02/16 10/02/16 02:01 02:01 03:00 03:01 Pulse 66 Resp 16 15 14 14 B/P 110/74 Pulse Ox 96 96 96 96 O2 Delivery Nasal Cannula Nasal Cannula Nasal Cannula Nasal Cannula O2 Flow Rate 2.0 2.0 2.0 2.0 10/02/16 10/02/16 10/02/16 10/02/16 03:56 04:00 04:03 04:33 Temp 98.8 98.8 Pulse 60 Resp 12 16 16 B/P 132/73 Pulse Ox 96 96 96 O2 Delivery Room Air Nasal Cannula Nasal Cannula Nasal Cannula O2 Flow Rate 2.0 2.0 2.0 10/02/16 10/02/16 10/02/16 10/02/16 05:00 06:00 06:29 06:29 Pulse 62 65 Resp 13 12 16 14 B/P 137/85 140/83 Pulse Ox 96 96 95 96 O2 Delivery Nasal Cannula Nasal Cannula Nasal Cannula Nasal Cannula O2 Flow Rate 2.0 2.0 2.0 2.0 10/02/16 10/02/16 10/02/16 06:59 08:52 08:55 Pulse 75 Resp 16 18 B/P 177/99 Pulse Ox 95 96 O2 Delivery Nasal Cannula Room Air O2 Flow Rate 2.0 Intake and Output 10/01/16 10/01/16 10/02/16 15:00 23:00 07:00 Intake Total 1048 ml Output Total 550 ml Balance 498 ml POLLY DEXTERL K III DO Oct 02, 2016 11:04
--- NOTE | 2016-10-02 11:38 | CARD ---
APPROVED REPORT EXAM: Two-dimensional and M-mode echocardiogram with Doppler and color Doppler. Other Information Quality : GoodHR: 63bpm Rhythm : NSR INDICATION Post VT arrest 2D DIMENSIONS RVDd4.1 (2.9-3.5cm)Left Atrium(2D)4.7 (1.6-4.0cm) IVSd1.0 (0.7-1.1cm)Aortic Root(2D)3.1 (2.0-3.7cm) LVDd5.8 (3.9-5.9cm)LVOT Diameter2.1 (1.8-2.4cm) PWd1.0 (0.7-1.1cm)LVDs4.4 (2.5-4.0cm) FS (%) 25.3 %SV83.4 ml LVEF(%)49.1 (>50%) Aortic Valve AoV Peak Faisal.127.1cm/sAoV VTI27.2cm AO Peak GR.6.5mmHgLVOT VTI 18.79cm AO Mean GR.4mmHg Mitral Valve MV E Dogzuvdx03.8cm/sMV E Peak Gr.3mmHg MV DECEL [id number] A Myctpitd47.0cm/s MV E Mean Gr.1mmHgE/A Ratio2.5 MV A [id number] TDI Lateral E' P. V6.46cm/sMedial E' P. V6.63cm/s E/Lateral E'12.5E/Medial E'12.2 Tricuspid Valve TR P. Hipbeyhc536hm/sRAP [id number] TR Peak Gr.[id number] LEFT VENTRICLE The left ventricle is normal size. There is normal left ventricular wall thickness. Left ventricle sy stolic function is low normal. The Ejection Fraction is 40%. The inferior wall is severely hypokineti c. The lateral wall is mild to moderately hypokinetic. Tissue Doppler imaging reveals moderate left v entricular diastolic dysfunction. There is no ventricular septal defect visualized. RIGHT VENTRICLE The right ventricle is mildly dilated. RV Systolic function is mildly reduced. ATRIA The left atrium is mildly dilated. The right atrium size is normal. The interatrial septum is intact with no evidence for an atrial septal defect or patent foramen ovale as noted on 2-D or Doppler imagi ng. AORTIC VALVE The aortic valve is normal in structure and function. The aortic valve is trileaflet. Doppler and Col or Flow revealed no significant aortic regurgitation. There is no significant aortic valvular stenosi s. MITRAL VALVE The mitral valve is normal in structure and function. There is no evidence of mitral valve prolapse. There is no mitral valve stenosis. Doppler and Color Flow revealed mild mitral regurgitation. TRICUSPID VALVE The tricuspid valve is normal in structure. Doppler and Color Flow revealed mild tricuspid regurgitat ion. The PA pressure was estimated at 40 mmHg. PULMONIC VALVE Doppler and Color Flow revealed trace pulmonic valvular regurgitation. There is no pulmonic valvular stenosis. GREAT VESSELS The aortic root is normal in size. The ascending aorta is normal in size. The IVC is normal in size a nd collapses <50% with inspiration. PERICARDIAL EFFUSION There is no pleural effusion. There is no evidence of significant pericardial effusion. Critical Notification Critical Value: No <Conclusion> Left ventricle systolic function is low normal. The Ejection Fraction is 40%. The inferior wall is severely hypokinetic. The lateral wall is mild to moderately hypokinetic. Doppler and Color Flow revealed mild tricuspid regurgitation. The PA pressure was estimated at 40 mmH g. The IVC is normal in size and collapses <50% with inspiration.
--- NOTE | 2016-10-02 13:11 | PDOC ---
CARDIO Progress Notes Date and Time Date of Service 10/02/16 Time of Evaluation 1245 Subjective Subjective: No Chest Pain, No shortness of breath, No Palpitations Vitals Vitals Vital Signs Date Time Temp Pulse Resp B/P Pulse Ox O2 Delivery O2 Flow Rate FiO2 10/02/16 12:01 Room Air 10/02/16 12:00 98.7 70 12 142/71 95 98.7 10/02/16 10:00 2.0 Weight Weight [ ] Input and Output Intake and Output Intake and Output 10/02/16 07:00 Intake Total 1048 ml Output Total 550 ml Balance 498 ml Intake Oral 300 ml IV Total 748 ml Output Urine Total 550 ml Laboratory Labs Laboratory Tests Test 10/01/16 19:00 10/01/16 19:10 10/01/16 19:12 10/02/16 05:00 White Blood Count 17.2x10^3/uL (4.0-11.0) 14.0x10^3/uL (4.0-11.0) Red Blood Count 5.47x10^6/uL (4.30-5.70) 5.08x10^6/uL (4.30-5.70) Hemoglobin 17.6g/dL (13.0-17.5) 16.5g/dL (13.0-17.5) Hematocrit 50.9% (39.0-53.0) 46.7% (39.0-53.0) Mean Corpuscular Volume 93fL (79-100) 92fL (79-100) Mean Corpuscular Hemoglobin 32pg (25-35) 33pg (25-35) Mean Corpuscular Hemoglobin Concent 35g/dL (31-37) 35g/dL (31-37) Red Cell Distribution Width 13.6% (11.5-14.5) 13.4% (11.5-14.5) Platelet Count 214x10^3/uL (140-400) 187x10^3/uL (140-400) Neutrophils (%) (Auto) 66% (31-73) 66% (31-73) Lymphocytes (%) (Auto) 24% (24-48) 24% (24-48) Monocytes (%) (Auto) 6% (0-9) 6% (0-9) Eosinophils (%) (Auto) 3% (0-3) 3% (0-3) Basophils (%) (Auto) 1% (0-3) 1% (0-3) Neutrophils # (Auto) 11.4x10^3uL (1.8-7.7) 9.2x10^3uL (1.8-7.7) Lymphocytes # (Auto) 4.1x10^3/uL (1.0-4.8) 3.4x10^3/uL (1.0-4.8) Monocytes # (Auto) 0.9x10^3/uL (0.0-1.1) 0.9x10^3/uL (0.0-1.1) Eosinophils # (Auto) 0.6x10^3/uL (0.0-0.7) 0.4x10^3/uL (0.0-0.7) Basophils # (Auto) 0.2x10^3/uL (0.0-0.2) 0.1x10^3/uL (0.0-0.2) Sodium Level 143mmol/L (136-145) 139mmol/L (136-145) Potassium Level 3.7mmol/L (3.5-5.1) 3.4mmol/L (3.5-5.1) Chloride Level 105mmol/L (98-107) 104mmol/L (98-107) Carbon Dioxide Level 28mmol/L (21-32) 25mmol/L (21-32) Anion Gap 10 (6-14) 10 (6-14) Blood Urea Nitrogen 23mg/dL (8-26) 22mg/dL (8-26) Creatinine 1.2mg/dL (0.7-1.3) 0.9mg/dL (0.7-1.3) Estimated GFR (Cockcroft-Gault) 63.6 88.6 Glucose Level 105mg/dL (70-99) 93mg/dL (70-99) Calcium Level 9.1mg/dL (8.5-10.1) 8.3mg/dL (8.5-10.1) Troponin I Quantitative < 0.017ng/mL (0.000-0.055) FJ-[id number]-U-Type Natriuretic Peptide 304pg/mL (0-124) Magnesium Level 1.9mg/dL (1.8-2.4) 2.1mg/dL (1.8-2.4) Bedside Troponin I 0.00ng/ml (<0.08) Total Bilirubin 0.8mg/dL (0.2-1.0) Direct Bilirubin 0.2mg/dL (0.0-0.2) Aspartate Amino Transf (AST/SGOT) 32U/L (15-37) Alanine Aminotransferase (ALT/SGPT) 38U/L (16-63) Alkaline Phosphatase 74U/L (46-116) Total Protein 6.4g/dL (6.4-8.2) Albumin 3.5g/dL (3.4-5.0) Triglycerides Level 138mg/dL (0-150) Cholesterol Level 182mg/dL (0-200) LDL Cholesterol, Calculated 115mg/dL (0-100) VLDL Cholesterol, Calculated 28mg/dL (0-40) HDL Cholesterol 39mg/dL (40-60) Cholesterol/HDL Ratio 4.7 Physical Exam HEENT: Neck Supple W Full Motion Chest: Symmetric LUNGS: Clear to Auscultation Heart: S1S2, RRR Abdomen: Soft N/T Extremities: No Edema, No Calf Tenderness, Other (arteriotomy site CDI with distal neurovascular status intact ) Neurology: alert, oriented, follow commands Assessment Assessment 1. S/p VT arrest treated with IV Amiodarone no significant arrhythmias overnight will start oral Amio this evening 2. CAD s/p remote CABG Follows with Dr. Laboy at . Saw last approximately year ago cath revealed patent grafts along with 80% left main lesion NPO after MN. will consider cardiac cath to address L main in am. r/b/a discussed and is agreeable- will discuss with primary loft worker apprentice verbalizes that he will be compliant with at least 30 days of DAPT. 3. Ischemic cardiomyopathy Echo with an EF of 40%. start optimization therapy recommend close outpatient f/u with primary loft worker apprentice discussed significant importance of compliance/ treatment adherence 4. Hypertension labile increase metoprolol and lisinopril hydralazine PRN 5. Hyperlipidemia LDL 15 statin therapy 6. Hypokalemia replaced. Monitor lytes 7. Noncompliance on ASA only, previously no driving for 6 months given arrest; d/w patient. Reinforced at closing of discussion not interested in disability/medicaid as he states it would not provide him with enough income to pay his bills (has $40k motorcycle and $40k pickup)- wishes to keep his present lifestyle (would need $4000 per month to maintain) reports noncompliance with medications due to affordability. $4 medications discussed- will tailor meds to list Was on Obamacare but premiums were > $600 per month and he was unable to afford. Will consult administrator social welfare for possible assistance if available ZIYAD ALMARAZ APRN Oct 02, 2016 13:11
[2016-10-02] MEDS ORDERED: hydrALAZINE 20 MG/ML VIAL. IVP PRN (17:15)
[2016-10-02] MEDS ORDERED: AMIODARONE HCL 200 MG TABLET. PO ONE (17:30)
[2016-10-02] MEDS ORDERED: LORAZEPAM 2 MG/ML VIAL IV PRN ×2 (20:00)
[2016-10-02] MEDS ORDERED: AMIODARONE HCL 200 MG TABLET. PO SCH (21:00)
[2016-10-02] MEDS ORDERED: METOPROLOL TART IMMED RELEASE 25 MG TABLET PO SCH (21:00)
[2016-10-02] MEDS: ATORVASTATIN CALCIUM 20 MG TABLET PO SCH (21:04)
[2016-10-03] VITALS (27 sets, daily range): BP systolic 100–157; BP diastolic 57–108
[2016-10-03 06:22] LABS: CALCIUM 8.8 mg/dL (8.5-10.1); CREATININE 1.2 mg/dL (0.7-1.3); GFR 63.6; POTASSIUM 4.8 mmol/L (3.5-5.1)
[2016-10-03 06:46] LABS: BASO # 0.2 x10^3/uL (0.0-0.2); BASO % 1 % (0-3); EOS % 4 % (0-3); HEMOGLOBIN 16.6 g/dL (13.0-17.5); LYMPH # 3.2 x10^3/uL (1.0-4.8); LYMPH % 25 % (24-48); MEAN CORPUSCULAR HEMOGLOBIN 32 pg (25-35); MEAN CORPUSCULAR HGB CONC 35 g/dL (31-37); MEAN CORPUSCULAR VOLUME 93 fL (79-100); MONO % 8 % (0-9); NEUT % 62 % (31-73); PLATELET COUNT 182 x10^3/uL (140-400); RED BLOOD COUNT 5.16 x10^6/uL (4.30-5.70); RED CELL DISTRIBUTION WIDTH 13.6 % (11.5-14.5); WHITE BLOOD COUNT 13.1 x10^3/uL (4.0-11.0)
[2016-10-03] MEDS: HYDROCODONE/APAP 5/325MG TABLET. PO PRN ×3 (09:53→20:53)
[2016-10-03] MEDS: METOPROLOL TART IMMED RELEASE 25 MG TABLET. PO SCH ×2 (09:54→20:53)
[2016-10-03] MEDS: ASPIRIN ENTERIC COATED 325 MG TABLET.DR. PO SCH (09:54)
[2016-10-03] MEDS: AMIODARONE HCL 200 MG TABLET. PO SCH (09:55)
[2016-10-03] MEDS: LISINOPRIL 10 MG TABLET PO SCH (09:55)
--- NOTE | 2016-10-03 10:44 | PDOC ---
PROGRESS NOTES Chief Complaint Chief Complaint Cardiac arrest in the ER. - suspected STEMI; h/o multiple [place] - CAD - hypertension - hypercholesterolemia - asthma/COPD - multi-substance abuse History of Present Illness History of Present Illness Patient evaluated in ICU this AM. Is eager to get back home and back to work, but is planning on being taken for cardiac cath this afternoon. Slightly improved pain of the ribs 08/07 to chest compressions 10/01. Discussed case with RN. Pt has been anxious. Repeat Troponin 4.858. Vitals Vitals Vital Signs Date Time Temp Pulse Resp B/P Pulse Ox O2 Delivery O2 Flow Rate FiO2 10/03/16 09:55 75 154/95 10/03/16 09:53 19 93 Room Air 10/03/16 07:00 98.0 98.0 10/02/16 10:00 2.0 Physical Exam General: Alert, Cooperative, mild distress Heart: Regular rate, Normal S1 Lungs: Clear Abdomen: Normal bowel sounds Extremities: No cyanosis, No edema Skin: No significant lesion Labs LABS Laboratory Tests Test 10/02/16 18:15 10/03/16 05:30 Troponin I Quantitative 4.858ng/mL (0.000-0.055) 5.320ng/mL (0.000-0.055) White Blood Count 13.1x10^3/uL (4.0-11.0) Red Blood Count 5.16x10^6/uL (4.30-5.70) Hemoglobin 16.6g/dL (13.0-17.5) Hematocrit 48.0% (39.0-53.0) Mean Corpuscular Volume 93fL (79-100) Mean Corpuscular Hemoglobin 32pg (25-35) Mean Corpuscular Hemoglobin Concent 35g/dL (31-37) Red Cell Distribution Width 13.6% (11.5-14.5) Platelet Count 182x10^3/uL (140-400) Neutrophils (%) (Auto) 62% (31-73) Lymphocytes (%) (Auto) 25% (24-48) Monocytes (%) (Auto) 8% (0-9) Eosinophils (%) (Auto) 4% (0-3) Basophils (%) (Auto) 1% (0-3) Neutrophils # (Auto) 8.1x10^3uL (1.8-7.7) Lymphocytes # (Auto) 3.2x10^3/uL (1.0-4.8) Monocytes # (Auto) 1.1x10^3/uL (0.0-1.1) Eosinophils # (Auto) 0.5x10^3/uL (0.0-0.7) Basophils # (Auto) 0.2x10^3/uL (0.0-0.2) Sodium Level 144mmol/L (136-145) Potassium Level 4.8mmol/L (3.5-5.1) Chloride Level 106mmol/L (98-107) Carbon Dioxide Level 30mmol/L (21-32) Anion Gap 8 (6-14) Blood Urea Nitrogen 21mg/dL (8-26) Creatinine 1.2mg/dL (0.7-1.3) Estimated GFR (Cockcroft-Gault) 63.6 Glucose Level 102mg/dL (70-99) Calcium Level 8.8mg/dL (8.5-10.1) Review of Systems Review of Systems denies fever, chills denies cardiogenic chest pain, palpitations, shortness of air improved pain of the ribs 08/07 to 10/01 chest compressions + anxiety Assessment and Plan Assessmemt and Plan Problems Medical Problems: (1) Cardiac arrest Status: Acute (2) STEMI (ST elevation myocardial infarction) Status: Acute (3) Ventricular tachyarrhythmia Status: Acute ASSESSMENT: - cardiac arrest in the ER. - suspected STEMI; h/o multiple [place] - CAD - hypertension - hypercholesterolemia - asthma/COPD - multi-substance abuse; alcohol, tobacco, reportedly distant illicit drug use - non-compliance 2/2 social barriers PLAN: - cardiac cath planned this afternoon - Xanax 1 mg po q6h prn anxiety - repeat troponin 4.858 - K+ improved with replacement - cont pain control - switching to PO Amiodarone - repeat daily labs - PTOT Problems: Comment Review of Relevant I have reviewed the following items josefina (where applicable) has been applied. Labs Laboratory Tests Test 10/01/16 19:00 10/01/16 19:10 10/01/16 19:12 10/01/16 20:50 White Blood Count 17.2x10^3/uL (4.0-11.0) Red Blood Count 5.47x10^6/uL (4.30-5.70) Hemoglobin 17.6g/dL (13.0-17.5) Hematocrit 50.9% (39.0-53.0) Mean Corpuscular Volume 93fL (79-100) Mean Corpuscular Hemoglobin 32pg (25-35) Mean Corpuscular Hemoglobin Concent 35g/dL (31-37) Red Cell Distribution Width 13.6% (11.5-14.5) Platelet Count 214x10^3/uL (140-400) Neutrophils (%) (Auto) 66% (31-73) Lymphocytes (%) (Auto) 24% (24-48) Monocytes (%) (Auto) 6% (0-9) Eosinophils (%) (Auto) 3% (0-3) Basophils (%) (Auto) 1% (0-3) Neutrophils # (Auto) 11.4x10^3uL (1.8-7.7) Lymphocytes # (Auto) 4.1x10^3/uL (1.0-4.8) Monocytes # (Auto) 0.9x10^3/uL (0.0-1.1) Eosinophils # (Auto) 0.6x10^3/uL (0.0-0.7) Basophils # (Auto) 0.2x10^3/uL (0.0-0.2) Sodium Level 143mmol/L (136-145) Potassium Level 3.7mmol/L (3.5-5.1) Chloride Level 105mmol/L (98-107) Carbon Dioxide Level 28mmol/L (21-32) Anion Gap 10 (6-14) Blood Urea Nitrogen 23mg/dL (8-26) Creatinine 1.2mg/dL (0.7-1.3) Estimated GFR (Cockcroft-Gault) 63.6 Glucose Level 105mg/dL (70-99) Calcium Level 9.1mg/dL (8.5-10.1) Troponin I Quantitative < 0.017ng/mL (0.000-0.055) IY-Qlw-[id number]-Type Natriuretic Peptide 304pg/mL (0-124) Magnesium Level 1.9mg/dL (1.8-2.4) Bedside Troponin I 0.00ng/ml (<0.08) Nasal Screen MRSA (PCR) Positive (Negative) Test 10/02/16 05:00 10/02/16 18:15 10/03/16 05:30 White Blood Count 14.0x10^3/uL (4.0-11.0) 13.1x10^3/uL (4.0-11.0) Red Blood Count 5.08x10^6/uL (4.30-5.70) 5.16x10^6/uL (4.30-5.70) Hemoglobin 16.5g/dL (13.0-17.5) 16.6g/dL (13.0-17.5) Hematocrit 46.7% (39.0-53.0) 48.0% (39.0-53.0) Mean Corpuscular Volume 92fL (79-100) 93fL (79-100) Mean Corpuscular Hemoglobin 33pg (25-35) 32pg (25-35) Mean Corpuscular Hemoglobin Concent 35g/dL (31-37) 35g/dL (31-37) Red Cell Distribution Width 13.4% (11.5-14.5) 13.6% (11.5-14.5) Platelet Count 187x10^3/uL (140-400) 182x10^3/uL (140-400) Neutrophils (%) (Auto) 66% (31-73) 62% (31-73) Lymphocytes (%) (Auto) 24% (24-48) 25% (24-48) Monocytes (%) (Auto) 6% (0-9) 8% (0-9) Eosinophils (%) (Auto) 3% (0-3) 4% (0-3) Basophils (%) (Auto) 1% (0-3) 1% (0-3) Neutrophils # (Auto) 9.2x10^3uL (1.8-7.7) 8.1x10^3uL (1.8-7.7) Lymphocytes # (Auto) 3.4x10^3/uL (1.0-4.8) 3.2x10^3/uL (1.0-4.8) Monocytes # (Auto) 0.9x10^3/uL (0.0-1.1) 1.1x10^3/uL (0.0-1.1) Eosinophils # (Auto) 0.4x10^3/uL (0.0-0.7) 0.5x10^3/uL (0.0-0.7) Basophils # (Auto) 0.1x10^3/uL (0.0-0.2) 0.2x10^3/uL (0.0-0.2) Sodium Level 139mmol/L (136-145) 144mmol/L (136-145) Potassium Level 3.4mmol/L (3.5-5.1) 4.8mmol/L (3.5-5.1) Chloride Level 104mmol/L (98-107) 106mmol/L (98-107) Carbon Dioxide Level 25mmol/L (21-32) 30mmol/L (21-32) Anion Gap 10 (6-14) 8 (6-14) Blood Urea Nitrogen 22mg/dL (8-26) 21mg/dL (8-26) Creatinine 0.9mg/dL (0.7-1.3) 1.2mg/dL (0.7-1.3) Estimated GFR (Cockcroft-Gault) 88.6 63.6 Glucose Level 93mg/dL (70-99) 102mg/dL (70-99) Calcium Level 8.3mg/dL (8.5-10.1) 8.8mg/dL (8.5-10.1) Magnesium Level 2.1mg/dL (1.8-2.4) Total Bilirubin 0.8mg/dL (0.2-1.0) Direct Bilirubin 0.2mg/dL (0.0-0.2) Aspartate Amino Transf (AST/SGOT) 32U/L (15-37) Alanine Aminotransferase (ALT/SGPT) 38U/L (16-63) Alkaline Phosphatase 74U/L (46-116) Total Protein 6.4g/dL (6.4-8.2) Albumin 3.5g/dL (3.4-5.0) Triglycerides Level 138mg/dL (0-150) Cholesterol Level 182mg/dL (0-200) LDL Cholesterol, Calculated 115mg/dL (0-100) VLDL Cholesterol, Calculated 28mg/dL (0-40) HDL Cholesterol 39mg/dL (40-60) Cholesterol/HDL Ratio 4.7 Troponin I Quantitative 4.858ng/mL (0.000-0.055) 5.320ng/mL (0.000-0.055) Laboratory Tests Test 10/02/16 18:15 10/03/16 05:30 Troponin I Quantitative 4.858ng/mL (0.000-0.055) 5.320ng/mL (0.000-0.055) White Blood Count 13.1x10^3/uL (4.0-11.0) Red Blood Count 5.16x10^6/uL (4.30-5.70) Hemoglobin 16.6g/dL (13.0-17.5) Hematocrit 48.0% (39.0-53.0) Mean Corpuscular Volume 93fL (79-100) Mean Corpuscular Hemoglobin 32pg (25-35) Mean Corpuscular Hemoglobin Concent 35g/dL (31-37) Red Cell Distribution Width 13.6% (11.5-14.5) Platelet Count 182x10^3/uL (140-400) Neutrophils (%) (Auto) 62% (31-73) Lymphocytes (%) (Auto) 25% (24-48) Monocytes (%) (Auto) 8% (0-9) Eosinophils (%) (Auto) 4% (0-3) Basophils (%) (Auto) 1% (0-3) Neutrophils # (Auto) 8.1x10^3uL (1.8-7.7) Lymphocytes # (Auto) 3.2x10^3/uL (1.0-4.8) Monocytes # (Auto) 1.1x10^3/uL (0.0-1.1) Eosinophils # (Auto) 0.5x10^3/uL (0.0-0.7) Basophils # (Auto) 0.2x10^3/uL (0.0-0.2) Sodium Level 144mmol/L (136-145) Potassium Level 4.8mmol/L (3.5-5.1) Chloride Level 106mmol/L (98-107) Carbon Dioxide Level 30mmol/L (21-32) Anion Gap 8 (6-14) Blood Urea Nitrogen 21mg/dL (8-26) Creatinine 1.2mg/dL (0.7-1.3) Estimated GFR (Cockcroft-Gault) 63.6 Glucose Level 102mg/dL (70-99) Calcium Level 8.8mg/dL (8.5-10.1) Medications Current Medications Nitroglycerin (Nitrostat) 0.4 mg PRN Q5MIN PRN SL CHEST PAIN Last administered on 10/01/16 19:25; Start 10/01/16 at 19:15 Aspirin (Dyana Aspirin) 325 mg 1X ONCE PO Last administered on 10/01/16 19:15 ; Start 10/01/16 at 19:15; Stop 10/01/16 at 19:16; Status DC Heparin Sodium (Porcine) 10,000 unit STK-MED ONCE .ROUTE ; Start 10/01/16 at 19: 13; Stop 10/01/16 at 19:14; Status DC Heparin Sodium (Porcine) 4,000 unit 1X ONCE IV Last administered on 10/01/16 19:19; Start 10/01/16 at 19:15; Stop 10/01/16 at 19:16; Status DC Morphine Sulfate 5 mg 5 mg 1X ONCE IV ; Start 10/01/16 at 19:30; Stop 10/01/16 at 19:31; Status DC Amiodarone HCl 150 mg/Dextrose 103 ml @ 618 mls/hr 1X ONCE IV Last administered on 10/01/16 19:34; Start 10/01/16 at 19:30; Stop 10/01/16 at 19:39 ; Status DC Amiodarone HCl 900 mg/Dextrose 518 ml @ 0 mls/hr CONT PRN IV SEE I/O RECORD Last administered on 10/01/16 19:52; Start 10/01/16 at 19:30; Stop 10/01/16 at 20:04; Status DC Magnesium Sulfate/ Dextrose (Magnesium Sulfate PREMIX 2GM) 50 ml @ 25 mls/hr 1X ONCE IV ; Start 10/01/16 at 19:30; Stop 10/01/16 at 21:29; Status DC Lidocaine HCl 20 ml STK-MED ONCE .ROUTE ; Start 10/01/16 at 19:33; Stop at 19:34; Status DC Iohexol 100 ml 100 ml STK-MED ONCE .ROUTE ; Start 10/01/16 at 19:33; Stop at 19:34; Status DC Heparin Sodium/ Sodium Chloride 1,000 ml @ As Directed STK-MED ONCE .ROUTE ; Start 10/01/16 at 19:33; Stop 10/01/16 at 19:34; Status DC Bivalirudin (Angiomax) 250 mg STK-MED ONCE IV ; Start 10/01/16 at 19:34; Stop at 19:35; Status DC Heparin Sodium (Porcine) 10,000 unit STK-MED ONCE .ROUTE ; Start 10/01/16 at 19: 34; Stop 10/01/16 at 19:35; Status DC Midazolam HCl (Versed) 5 mg STK-MED ONCE .ROUTE ; Start 10/01/16 at 19:34; Stop 10/01/16 at 19:35; Status DC Fentanyl Citrate (Fentanyl 5ml Vial) 250 mcg STK-MED ONCE .ROUTE ; Start at 19:35; Stop 10/01/16 at 19:36; Status DC Iohexol 100 ml 100 ml STK-MED ONCE .ROUTE ; Start 10/01/16 at 19:43; Stop at 19:44; Status DC Heparin Sodium/ Sodium Chloride 500 ml @ As Directed STK-MED ONCE .ROUTE ; Start 10/01/16 at 19:56; Stop 10/01/16 at 19:57; Status DC Heparin Sodium/ Sodium Chloride 1,000 unit 1X ONCE IART Last administered on 20:40; Start 10/01/16 at 20:30; Stop 10/01/16 at 20:31; Status DC Heparin Sodium/ Sodium Chloride 1,000 unit 1X ONCE IART Last administered on 20:40; Start 10/01/16 at 20:30; Stop 10/01/16 at 20:31; Status DC Midazolam HCl (Versed) 2 mg 1X ONCE IV Last administered on 10/01/16 20:40; Start 10/01/16 at 20:30; Stop 10/01/16 at 20:31; Status DC Fentanyl Citrate (Fentanyl 5ml Vial) 100 mcg 1X ONCE IV Last administered on 20:41; Start 10/01/16 at 20:30; Stop 10/01/16 at 20:31; Status DC Iohexol (Omnipaque 350 Mg/ml) 100 ml 1X ONCE IART Last administered on 20:40; Start 10/01/16 at 20:30; Stop 10/01/16 at 20:31; Status DC Lidocaine HCl 17 ml 1X ONCE IJ Last administered on 10/01/16 20:40; Start at 20:30; Stop 10/01/16 at 20:31; Status DC Sodium Chloride 3 ml 3 ml QSHIFT PRN IV AFTER MEDS AND BLOOD DRAWS; Start 10/01 at 21:15 Sodium Chloride (Iv Sodium Chloride 0.9% 1000ml Bag) 1,000 ml @ 50 mls/hr Q20H IV Last administered on 10/01/16 21:36; Start 10/01/16 at 21:14 Aspirin (Ecotrin) 325 mg DAILYWBKFT PO Last administered on 10/03/16 09:54; Start 10/02/16 at 08:00 Metoprolol Tartrate (Lopressor) 12.5 mg BID PO Last administered on 10/02/16 08:55; Start 10/01/16 at 22:00; Stop 10/02/16 at 15:48; Status DC Lisinopril (Prinivil) 5 mg DAILY PO Last administered on 10/02/16 11:25; Start 10/02/16 at 09:00; Stop 10/02/16 at 17:05; Status DC Atorvastatin Calcium (Lipitor) 20 mg QHS PO Last administered on 10/02/16 21: 04; Start 10/01/16 at 22:00 Fentanyl Citrate (Fentanyl 2ml Vial) 50 mcg PRN Q1HR PRN IV Moderate or severe pain Last administered on 10/02/16 04:03; Start 10/01/16 at 21:15; Stop at 04:48; Status DC Ondansetron HCl (Zofran) 4 mg PRN Q6HRS PRN IV NAUSEA/VOMITING; Start 10/01/16 at 21:15; Stop 10/02/16 at 04:48; Status DC Nitroglycerin (Nitrostat) 0.4 mg PRN Q5MIN PRN SL CHEST PAIN; Start 10/01/16 at 21:15; Status UNV Acetaminophen/ Hydrocodone Bitart 1 tab 1 tab PRN Q4HRS PRN PO MILD PAIN Last administered on 10/03/16 09:53; Start 10/01/16 at 21:15 Magnesium Sulfate/ Dextrose (Magnesium Sulfate PREMIX 1GM) 100 ml @ 100 mls/hr 1X ONCE IV Last administered on 10/01/16 22:58; Start 10/01/16 at 22:30; Stop 10/01/16 at 23:29; Status DC Hydromorphone HCl (Dilaudid) 0.5 mg 1X ONCE IV Last administered on 10/01/16 22:59; Start 10/01/16 at 23:00; Stop 10/01/16 at 23:01; Status DC Fentanyl Citrate (Fentanyl 2ml Vial) 100 mcg STK-MED ONCE .ROUTE ; Start at 01:59; Stop 10/02/16 at 02:00; Status DC Fentanyl Citrate (Fentanyl 2ml Vial) 100 mcg STK-MED ONCE .ROUTE ; Start at 04:00; Stop 10/02/16 at 04:01; Status DC Fentanyl Citrate (Fentanyl 2ml Vial) 50 mcg PRN Q1HR PRN IV Moderate or severe pain Last administered on 10/02/16 11:23; Start 10/02/16 at 04:48; Stop at 11:25; Status DC Ondansetron HCl (Zofran) 4 mg PRN Q6HRS PRN IV NAUSEA/VOMITING Last administered on 10/02/16 11:10; Start 10/02/16 at 04:48 Potassium Chloride (Klor-Con) 40 meq 1X ONCE PO Last administered on 11:25; Start 10/02/16 at 10:45; Stop 10/02/16 at 10:46; Status DC Amiodarone HCl (Cordarone) 150 mg STK-MED ONCE .ROUTE ; Start 10/01/16 at 12:00 ; Stop 10/02/16 at 10:42; Status DC Epinephrine HCl (Epinephrine Syringe) 1 mg STK-MED ONCE .ROUTE ; Start 10/01/16 at 12:00; Stop 10/02/16 at 10:42; Status DC Metoprolol Tartrate (Lopressor) 25 mg BID PO Last administered on 10/02/16 21: 04; Start 10/02/16 at 21:00; Stop 10/03/16 at 04:48; Status DC Amiodarone HCl (Cordarone) 40 mg DAILY PO ; Start 10/02/16 at 21:00; Stop at 21:00; Status DC Lisinopril (Prinivil) 10 mg DAILY PO Last administered on 10/03/16 09:55; Start 10/03/16 at 09:00 Hydralazine HCl (Apresoline) 10 mg PRN Q4HRS PRN IVP ELEVATED BP, SEE COMMENTS ; Start 10/02/16 at 17:15 Amiodarone HCl (Cordarone) 400 mg DAILY PO Last administered on 10/03/16 09:55 ; Start 10/03/16 at 09:00 Amiodarone HCl (Cordarone) 400 mg 1X ONCE PO Last administered on 10/02/16 21 :05; Start 10/02/16 at 17:30; Stop 10/02/16 at 17:31; Status DC Lorazepam (Ativan) 2 mg PRN Q6HRS PRN IV ANXIETY / AGITATION Last administered on 10/02/16 22:18; Start 10/02/16 at 20:00 Lorazepam (Ativan) 1 mg PRN Q6HRS PRN IV ANXIETY / AGITATION; Start 10/02/16 at 20:00 Metoprolol Tartrate (Lopressor) 25 mg BID PO Last administered on 10/03/16 09: 54; Start 10/03/16 at 09:00 Active Scripts Active Reported Aspirin 81 Mg Tab.chew 1 Tab PO DAILY Vitals/I & O Vital Sign - Last 24 Hours 10/02/16 10/02/16 10/02/16 10/02/16 10:49 11:00 11:23 11:25 Pulse 66 69 66 Resp 11 12 15 B/P 152/89 147/68 152/89 Pulse Ox 96 94 O2 Delivery Room Air Room Air 10/02/16 10/02/16 10/02/16 10/02/16 12:00 12:01 13:00 14:00 Temp 98.7 98.7 Pulse 70 82 78 Resp 12 20 23 B/P 142/71 173/112 175/110 Pulse Ox 95 94 94 O2 Delivery Room Air Room Air Room Air Room Air 10/02/16 10/02/16 10/02/16 10/02/16 15:00 16:00 16:00 17:00 Temp 98.1 98.1 Pulse 72 78 74 Resp 11 15 16 B/P 140/68 166/94 171/82 Pulse Ox 92 95 96 O2 Delivery Room Air Room Air Room Air Room Air 10/02/16 10/02/16 10/02/16 10/02/16 18:00 19:00 19:30 20:00 Temp 98.5 98.5 Pulse 72 67 71 Resp 15 15 23 B/P 175/99 118/70 118/65 Pulse Ox 93 94 96 O2 Delivery Room Air Room Air Room Air Room Air 10/02/16 10/02/16 10/02/16 10/02/16 21:00 21:04 21:05 22:00 Pulse 74 78 73 70 Resp 20 17 B/P 139/76 139/76 139/76 135/78 Pulse Ox 96 95 O2 Delivery Room Air Room Air 10/02/16 10/02/16 10/02/16 10/02/16 22:18 23:00 23:20 23:59 Pulse 69 Resp 12 22 22 B/P 92/54 Pulse Ox 96 93 93 O2 Delivery Room Air Room Air Room Air Room Air 10/03/16 10/03/16 10/03/16 10/03/16 00:00 01:00 02:00 03:00 Temp 97.8 97.8 Pulse 68 68 66 72 Resp 14 25 24 15 B/P 103/66 100/58 108/64 101/57 Pulse Ox 91 93 94 91 O2 Delivery Room Air Room Air Room Air Room Air 10/03/16 10/03/16 10/03/16 10/03/16 04:14 04:17 05:00 06:00 Temp 97.9 97.9 Pulse 67 65 70 Resp 14 11 14 B/P 101/59 109/63 122/78 Pulse Ox 94 93 94 O2 Delivery Room Air Room Air Room Air Room Air 10/03/16 10/03/16 10/03/16 10/03/16 07:00 08:00 08:00 08:55 Temp 98.0 98.0 Pulse 70 68 75 Resp 14 14 16 B/P 114/80 113/66 154/95 Pulse Ox 94 93 O2 Delivery Room Air Room Air Room Air Room Air 10/03/16 10/03/16 10/03/16 10/03/16 09:53 09:54 09:55 09:55 Pulse 75 75 75 Resp 19 B/P 154/95 154/95 154/95 Pulse Ox 93 O2 Delivery Room Air Intake and Output 10/02/16 10/02/16 10/03/16 15:00 23:00 07:00 Intake Total 890 ml 1120 ml Output Total 1250 ml 500 ml 500 ml Balance -360 ml 620 ml -500 ml JACKY DEXTER III DO Oct 03, 2016 10:44
[2016-10-03] MEDS: ALPRAZOLAM 1 MG TABLET PO PRN ×2 (10:47→19:01)
[2016-10-03] MEDS ORDERED: LIDOCAINE 2% 20 ML VIAL. ONE (11:46)
[2016-10-03] MEDS ORDERED: HEPARIN for ARTERIAL LINE 1,500 ML ONE (11:46)
[2016-10-03] MEDS ORDERED: IODIXANOL 320 MG/ML 100 ML VIAL. ONE ×2 (11:46→13:41)
[2016-10-03] MEDS ORDERED: FENTANYL PF 100 MCG/2 ML VIAL. ONE (12:52)
[2016-10-03] MEDS ORDERED: MIDAZOLAM HCL/PF 5 MG/5 ML VIAL. ONE (12:52)
--- NOTE | 2016-10-03 12:59 | PHYS DOC ---
MODERATE SEDATION ASSESSMENT RISKS/ALTERNATIVES Risks/Alternatives Risks and alternatives of this type of sedation and procedure discussed with: RISK/ALTERNATIVES: Patient H & P ON CHART H & P H & P on chart and reviewed for co-morbid conditions and appropriate labs. H&P ON CHART: Yes STATUS PREG STATUS ASSESSED: N/A MEDS/ALLERGIES REVIEWED Meds/Allergies Reviewed Medications and Allergies including time and route of recently administered narcotics and sedatives. MEDS/ALLERGIES REVIEWED: Yes ASA RATING ASA RATING: II AIRWAY ASSESSMENT Airway Assessment Airway patency, oral function limitations, presence of caps, crowns, dentures, partials, and ability to extend neck assessed. AIRWAY ASSESSMENT: Yes MALLAMPATI SCORE MALLAMPATI SCORE: II PRE-SEDATION ASSESSMENT PRE-SEDATION ASSESSMENT: Yes SEHLBI MCLEAN MD Oct 03, 2016 12:59
[2016-10-03] MEDS ORDERED: BIVALIRUDIN 250 MG VIAL. IV ONE ×2 (13:18→13:30)
[2016-10-03] MEDS ORDERED: LIDOCAINE 2% 20 ML VIAL. IJ ONE (13:30)
[2016-10-03] MEDS ORDERED: FENTANYL PF 100 MCG/2 ML VIAL. IV ONE ×2 (13:30→15:30)
[2016-10-03] MEDS ORDERED: MIDAZOLAM HCL/PF 5 MG/5 ML VIAL. IV ONE (13:30)
[2016-10-03] MEDS ORDERED: IODIXANOL 320 MG/ML 100 ML VIAL. IART ONE (13:30)
[2016-10-03] MEDS ORDERED: NITROGLYCERIN 200 MCG/2 ML SYRINGE FOR CATH/VASC LAB. ICAR ONE (13:43)
[2016-10-03] MEDS ORDERED: CONTRAST GIVEN MC PRN (13:45)
[2016-10-03] MEDS ORDERED: PRASUGREL 10 MG TABLET. ONE (14:05)
[2016-10-03] MEDS ORDERED: PRASUGREL 10 MG TABLET. PO ONE (14:15)
[2016-10-03] MEDS ORDERED: IV NORMAL SALINE 1000ML BAG 1,000 ML IV SCH (14:23)
--- NOTE | 2016-10-03 14:23 | PDOC4 ---
Operative Note Operative Note Brief cath note. 85% Left main. Protected. 2 3.0 x 8 Multi link bare metal stents. 0% residual Post PCI protocol. Discussed with the patient and family. Full report to follow. SHELBI MCLEAN MD Oct 03, 2016 14:23
[2016-10-03] MEDS ORDERED: 0.9 % SODIUM CHLORIDE 10 ML DISP.SYRIN. IV PRN (14:30)
[2016-10-03] MEDS ORDERED: ACETAMINOPHEN 325 MG TABLET. PO PRN (14:30)
[2016-10-03] MEDS ORDERED: NITROGLYCERIN SUBLINGUAL 0.4 MG BOTTLE OF 25. SL PRN (14:30)
[2016-10-03] MEDS ORDERED: LIDOCAINE 2% 100 MG/5 ML DISP.SYRIN. IV PRN (14:30)
[2016-10-03] MEDS ORDERED: AMIODARONE 150 MG in IV DEXTROSE 5% 100 ML IV PRN (14:30)
[2016-10-03] MEDS ORDERED: ATROPINE 0.5 MG/5 ML DISP.SYRIN. IV PRN (14:30)
[2016-10-03] MEDS ORDERED: CYCLOBENZAPRINE 10 MG TABLET. PO PRN (14:30)
[2016-10-03] MEDS ORDERED: CYCLOBENZAPRINE 10 MG TABLET. PO ONE (15:00)
--- NOTE | 2016-10-03 15:04 | EKG ---
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
[2016-10-03] MEDS: IV NORMAL SALINE 1000ML BAG 1,000 ML IV SCH (16:50)
[2016-10-03] MEDS: CYCLOBENZAPRINE 10 MG TABLET. PO PRN (20:52)
[2016-10-03] MEDS: ATORVASTATIN CALCIUM 20 MG TABLET PO SCH (20:53)
[2016-10-04] VITALS (15 sets, daily range): BP systolic 92–138; BP diastolic 53–93
--- NOTE | 2016-10-04 05:42 | EKG ---
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
[2016-10-04 06:06] LABS: BASO # 0.1 x10^3/uL (0.0-0.2); BASO % 1 % (0-3); EOS % 5 % (0-3); HEMATOCRIT 45.7 % (39.0-53.0); HEMOGLOBIN 15.8 g/dL (13.0-17.5); LYMPH # 3.3 x10^3/uL (1.0-4.8); LYMPH % 28 % (24-48); MEAN CORPUSCULAR HEMOGLOBIN 32 pg (25-35); MEAN CORPUSCULAR HGB CONC 35 g/dL (31-37); MEAN CORPUSCULAR VOLUME 93 fL (79-100); MONO % 7 % (0-9); NEUT % 59 % (31-73); PLATELET COUNT 163 x10^3/uL (140-400); RED CELL DISTRIBUTION WIDTH 13.7 % (11.5-14.5); WHITE BLOOD COUNT 11.9 x10^3/uL (4.0-11.0)
[2016-10-04 06:08] LABS: CALCIUM 8.5 mg/dL (8.5-10.1); GFR 78.5; POTASSIUM 3.8 mmol/L (3.5-5.1)
[2016-10-04] MEDS ORDERED: PRASUGREL 10 MG TABLET. PO SCH (08:00)
[2016-10-04] MEDS ORDERED: ASPIRIN ENTERIC COATED 81 MG TABLET.DR. PO SCH (08:00)
[2016-10-04] MEDS: CYCLOBENZAPRINE 10 MG TABLET. PO PRN (08:36)
[2016-10-04] MEDS: AMIODARONE HCL 200 MG TABLET. PO SCH (08:37)
[2016-10-04] MEDS: HYDROCODONE/APAP 5/325MG TABLET. PO PRN (08:38)
[2016-10-04] MEDS: METOPROLOL TART IMMED RELEASE 25 MG TABLET. PO SCH (08:39)
[2016-10-04] MEDS: ALPRAZOLAM 1 MG TABLET PO PRN (08:44)
[2016-10-04] MEDS: LISINOPRIL 10 MG TABLET PO SCH (08:44)
[2016-10-04] MEDS ORDERED: METO25TA4 PO (09:19)
[2016-10-04] MEDS ORDERED: AMIO200T2 PO (09:19)
[2016-10-04] MEDS ORDERED: ATOR20TA58 PO (09:19)
[2016-10-04] MEDS ORDERED: LISI10TA2 PO (09:19)
[2016-10-04] MEDS ORDERED: PRAS10TA4 PO (09:19)
[2016-10-04] MEDS: FENTANYL PF 100 MCG/2 ML VIAL. IV PRN ×2 (09:20→11:59)
--- NOTE | 2016-10-04 09:27 | PDOC ---
CARDIO Progress Notes Date and Time Date of Service 10/04/2016 Time of Evaluation 0921 Subjective Subjective: No Chest Pain, No shortness of breath, No Palpitations Vitals Vitals Vital Signs Date Time Temp Pulse Resp B/P Pulse Ox O2 Delivery O2 Flow Rate FiO2 10/04/16 08:44 85 133/77 10/04/16 08:38 18 98 Room Air 10/04/16 04:00 98.0 98.0 Weight Weight [ ] Input and Output Intake and Output Intake and Output 10/04/16 06:59 Intake Total 2250 ml Output Total 1600 ml Balance 650 ml Intake Oral 1250 ml IV Total 1000 ml Output Urine Total 1600 ml Laboratory Labs Laboratory Tests Test 10/04/16 05:00 White Blood Count 11.9x10^3/uL (4.0-11.0) Red Blood Count 4.90x10^6/uL (4.30-5.70) Hemoglobin 15.8g/dL (13.0-17.5) Hematocrit 45.7% (39.0-53.0) Mean Corpuscular Volume 93fL (79-100) Mean Corpuscular Hemoglobin 32pg (25-35) Mean Corpuscular Hemoglobin Concent 35g/dL (31-37) Red Cell Distribution Width 13.7% (11.5-14.5) Platelet Count 163x10^3/uL (140-400) Neutrophils (%) (Auto) 59% (31-73) Lymphocytes (%) (Auto) 28% (24-48) Monocytes (%) (Auto) 7% (0-9) Eosinophils (%) (Auto) 5% (0-3) Basophils (%) (Auto) 1% (0-3) Neutrophils # (Auto) 7.0x10^3uL (1.8-7.7) Lymphocytes # (Auto) 3.3x10^3/uL (1.0-4.8) Monocytes # (Auto) 0.9x10^3/uL (0.0-1.1) Eosinophils # (Auto) 0.6x10^3/uL (0.0-0.7) Basophils # (Auto) 0.1x10^3/uL (0.0-0.2) Sodium Level 141mmol/L (136-145) Potassium Level 3.8mmol/L (3.5-5.1) Chloride Level 108mmol/L (98-107) Carbon Dioxide Level 25mmol/L (21-32) Anion Gap 8 (6-14) Blood Urea Nitrogen 20mg/dL (8-26) Creatinine 1.0mg/dL (0.7-1.3) Estimated GFR (Cockcroft-Gault) 78.5 Glucose Level 90mg/dL (70-99) Calcium Level 8.5mg/dL (8.5-10.1) Physical Exam HEENT: Neck Supple W Full Motion Chest: Symmetric LUNGS: Clear to Auscultation Heart: S1S2, RRR, no murmurs, other (tele: SR) Abdomen: Soft N/T Extremities: Other (Lt STENO TYPIST site soft; mild ecchymosis) Neurology: alert, oriented, follow commands Assessment Assessment 1. S/p VT arrest continue oral amiodarone advised not to drive X 6 months 2. CAD s/p remote CABG Lt main BMS placed yesterday - has at least 30 days of Effient with coupons and GoodRx discount coupons follow up in 4 weeks with either [facility] or [facility] @ [facility] 3. Ischemic cardiomyopathy Echo with an EF of 40%. no evidence of CHF medical management 4. Hypertension continue meds 5. Hyperlipidemia controlled with statins 6. Noncompliance on ASA only, previously no driving for 6 months given arrest; d/w patient. Reinforced at closing of discussion Agreeable with discharge. MANUEL JENSEN APRN Oct 04, 2016 09:26
--- NOTE | 2016-10-04 11:48 | PDOC ---
PROGRESS NOTES Chief Complaint Chief Complaint s/p Cardiac arrest in the ER. -STEMI; h/o multiple CO - CAD - ischemic cardiomyopathy - hypertension - hypercholesterolemia - asthma/COPD - multi-substance abuse History of Present Illness History of Present Illness Patient seen and evaluated in the ICU. Resting comfortably and in no distress. Cleared for discharge by cardiology. Discussed case with RN. Patient is eager and is agreeable with discharge and f/u as outpatient. Vitals Vitals Vital Signs Date Time Temp Pulse Resp B/P Pulse Ox O2 Delivery O2 Flow Rate FiO2 10/04/16 09:38 18 100 Room Air 10/04/16 08:44 85 133/77 10/04/16 04:00 98.0 98.0 Physical Exam General: Alert, Cooperative, mild distress Heart: Regular rate, Normal S1, No murmurs Lungs: Clear Abdomen: Normal bowel sounds Extremities: No cyanosis, No edema Skin: No rashes, Other (bilateral groin dressings with dried blood. (+) tenderness with palpation; negative hematomas) Labs LABS Laboratory Tests Test 10/04/16 05:00 White Blood Count 11.9x10^3/uL (4.0-11.0) Red Blood Count 4.90x10^6/uL (4.30-5.70) Hemoglobin 15.8g/dL (13.0-17.5) Hematocrit 45.7% (39.0-53.0) Mean Corpuscular Volume 93fL (79-100) Mean Corpuscular Hemoglobin 32pg (25-35) Mean Corpuscular Hemoglobin Concent 35g/dL (31-37) Red Cell Distribution Width 13.7% (11.5-14.5) Platelet Count 163x10^3/uL (140-400) Neutrophils (%) (Auto) 59% (31-73) Lymphocytes (%) (Auto) 28% (24-48) Monocytes (%) (Auto) 7% (0-9) Eosinophils (%) (Auto) 5% (0-3) Basophils (%) (Auto) 1% (0-3) Neutrophils # (Auto) 7.0x10^3uL (1.8-7.7) Lymphocytes # (Auto) 3.3x10^3/uL (1.0-4.8) Monocytes # (Auto) 0.9x10^3/uL (0.0-1.1) Eosinophils # (Auto) 0.6x10^3/uL (0.0-0.7) Basophils # (Auto) 0.1x10^3/uL (0.0-0.2) Sodium Level 141mmol/L (136-145) Potassium Level 3.8mmol/L (3.5-5.1) Chloride Level 108mmol/L (98-107) Carbon Dioxide Level 25mmol/L (21-32) Anion Gap 8 (6-14) Blood Urea Nitrogen 20mg/dL (8-26) Creatinine 1.0mg/dL (0.7-1.3) Estimated GFR (Cockcroft-Gault) 78.5 Glucose Level 90mg/dL (70-99) Calcium Level 8.5mg/dL (8.5-10.1) Review of Systems Review of Systems improved chest wall pain / chest compressions 10/01 bilateral groin pain s/p cardiac catherizations Denies sob, palpitations, abdominal pain, n/v/d, or fevers/chills. Assessment and Plan Assessmemt and Plan Problems Medical Problems: (1) Cardiac arrest Status: Acute (2) STEMI (ST elevation myocardial infarction) Status: Acute (3) Ventricular tachyarrhythmia Status: Acute -STEMI; h/o multiple CO - CAD s/p CABG - ischemic cardiomyopathy - hypertension - hypercholesterolemia - asthma/COPD - multi-substance abuse plan: cleared by cardiology for d/c cardiology recommendations appreciated continue amiodarone, Effient, and concurrent home medications f/u with cardiology and pcp as outpatient. Problems: Comment Review of Relevant I have reviewed the following items josefina (where applicable) has been applied. Labs Laboratory Tests Test 10/02/16 18:15 10/03/16 05:30 10/04/16 05:00 Troponin I Quantitative 4.858ng/mL (0.000-0.055) 5.320ng/mL (0.000-0.055) White Blood Count 13.1x10^3/uL (4.0-11.0) 11.9x10^3/uL (4.0-11.0) Red Blood Count 5.16x10^6/uL (4.30-5.70) 4.90x10^6/uL (4.30-5.70) Hemoglobin 16.6g/dL (13.0-17.5) 15.8g/dL (13.0-17.5) Hematocrit 48.0% (39.0-53.0) 45.7% (39.0-53.0) Mean Corpuscular Volume 93fL (79-100) 93fL (79-100) Mean Corpuscular Hemoglobin 32pg (25-35) 32pg (25-35) Mean Corpuscular Hemoglobin Concent 35g/dL (31-37) 35g/dL (31-37) Red Cell Distribution Width 13.6% (11.5-14.5) 13.7% (11.5-14.5) Platelet Count 182x10^3/uL (140-400) 163x10^3/uL (140-400) Neutrophils (%) (Auto) 62% (31-73) 59% (31-73) Lymphocytes (%) (Auto) 25% (24-48) 28% (24-48) Monocytes (%) (Auto) 8% (0-9) 7% (0-9) Eosinophils (%) (Auto) 4% (0-3) 5% (0-3) Basophils (%) (Auto) 1% (0-3) 1% (0-3) Neutrophils # (Auto) 8.1x10^3uL (1.8-7.7) 7.0x10^3uL (1.8-7.7) Lymphocytes # (Auto) 3.2x10^3/uL (1.0-4.8) 3.3x10^3/uL (1.0-4.8) Monocytes # (Auto) 1.1x10^3/uL (0.0-1.1) 0.9x10^3/uL (0.0-1.1) Eosinophils # (Auto) 0.5x10^3/uL (0.0-0.7) 0.6x10^3/uL (0.0-0.7) Basophils # (Auto) 0.2x10^3/uL (0.0-0.2) 0.1x10^3/uL (0.0-0.2) Sodium Level 144mmol/L (136-145) 141mmol/L (136-145) Potassium Level 4.8mmol/L (3.5-5.1) 3.8mmol/L (3.5-5.1) Chloride Level 106mmol/L (98-107) 108mmol/L (98-107) Carbon Dioxide Level 30mmol/L (21-32) 25mmol/L (21-32) Anion Gap 8 (6-14) 8 (6-14) Blood Urea Nitrogen 21mg/dL (8-26) 20mg/dL (8-26) Creatinine 1.2mg/dL (0.7-1.3) 1.0mg/dL (0.7-1.3) Estimated GFR (Cockcroft-Gault) 63.6 78.5 Glucose Level 102mg/dL (70-99) 90mg/dL (70-99) Calcium Level 8.8mg/dL (8.5-10.1) 8.5mg/dL (8.5-10.1) Laboratory Tests Test 10/04/16 05:00 White Blood Count 11.9x10^3/uL (4.0-11.0) Red Blood Count 4.90x10^6/uL (4.30-5.70) Hemoglobin 15.8g/dL (13.0-17.5) Hematocrit 45.7% (39.0-53.0) Mean Corpuscular Volume 93fL (79-100) Mean Corpuscular Hemoglobin 32pg (25-35) Mean Corpuscular Hemoglobin Concent 35g/dL (31-37) Red Cell Distribution Width 13.7% (11.5-14.5) Platelet Count 163x10^3/uL (140-400) Neutrophils (%) (Auto) 59% (31-73) Lymphocytes (%) (Auto) 28% (24-48) Monocytes (%) (Auto) 7% (0-9) Eosinophils (%) (Auto) 5% (0-3) Basophils (%) (Auto) 1% (0-3) Neutrophils # (Auto) 7.0x10^3uL (1.8-7.7) Lymphocytes # (Auto) 3.3x10^3/uL (1.0-4.8) Monocytes # (Auto) 0.9x10^3/uL (0.0-1.1) Eosinophils # (Auto) 0.6x10^3/uL (0.0-0.7) Basophils # (Auto) 0.1x10^3/uL (0.0-0.2) Sodium Level 141mmol/L (136-145) Potassium Level 3.8mmol/L (3.5-5.1) Chloride Level 108mmol/L (98-107) Carbon Dioxide Level 25mmol/L (21-32) Anion Gap 8 (6-14) Blood Urea Nitrogen 20mg/dL (8-26) Creatinine 1.0mg/dL (0.7-1.3) Estimated GFR (Cockcroft-Gault) 78.5 Glucose Level 90mg/dL (70-99) Calcium Level 8.5mg/dL (8.5-10.1) Medications Current Medications Nitroglycerin (Nitrostat) 0.4 mg PRN Q5MIN PRN SL CHEST PAIN Last administered on 10/01/16 19:25; Start 10/01/16 at 19:15 Aspirin (Dyana Aspirin) 325 mg 1X ONCE PO Last administered on 10/01/16 19:15 ; Start 10/01/16 at 19:15; Stop 10/01/16 at 19:16; Status DC Heparin Sodium (Porcine) 10,000 unit STK-MED ONCE .ROUTE ; Start 10/01/16 at 19: 13; Stop 10/01/16 at 19:14; Status DC Heparin Sodium (Porcine) 4,000 unit 1X ONCE IV Last administered on 10/01/16 19:19; Start 10/01/16 at 19:15; Stop 10/01/16 at 19:16; Status DC Morphine Sulfate 5 mg 5 mg 1X ONCE IV ; Start 10/01/16 at 19:30; Stop 10/01/16 at 19:31; Status DC Amiodarone HCl 150 mg/Dextrose 103 ml @ 618 mls/hr 1X ONCE IV Last administered on 10/01/16 19:34; Start 10/01/16 at 19:30; Stop 10/01/16 at 19:39 ; Status DC Amiodarone HCl 900 mg/Dextrose 518 ml @ 0 mls/hr CONT PRN IV SEE I/O RECORD Last administered on 10/01/16 19:52; Start 10/01/16 at 19:30; Stop 10/01/16 at 20:04; Status DC Magnesium Sulfate/ Dextrose (Magnesium Sulfate PREMIX 2GM) 50 ml @ 25 mls/hr 1X ONCE IV ; Start 10/01/16 at 19:30; Stop 10/01/16 at 21:29; Status DC Lidocaine HCl 20 ml STK-MED ONCE .ROUTE ; Start 10/01/16 at 19:33; Stop at 19:34; Status DC Iohexol 100 ml 100 ml STK-MED ONCE .ROUTE ; Start 10/01/16 at 19:33; Stop at 19:34; Status DC Heparin Sodium/ Sodium Chloride 1,000 ml @ As Directed STK-MED ONCE .ROUTE ; Start 10/01/16 at 19:33; Stop 10/01/16 at 19:34; Status DC Bivalirudin (Angiomax) 250 mg STK-MED ONCE IV ; Start 10/01/16 at 19:34; Stop at 19:35; Status DC Heparin Sodium (Porcine) 10,000 unit STK-MED ONCE .ROUTE ; Start 10/01/16 at 19: 34; Stop 10/01/16 at 19:35; Status DC Midazolam HCl (Versed) 5 mg STK-MED ONCE .ROUTE ; Start 10/01/16 at 19:34; Stop 10/01/16 at 19:35; Status DC Fentanyl Citrate (Fentanyl 5ml Vial) 250 mcg STK-MED ONCE .ROUTE ; Start at 19:35; Stop 10/01/16 at 19:36; Status DC Iohexol 100 ml 100 ml STK-MED ONCE .ROUTE ; Start 10/01/16 at 19:43; Stop at 19:44; Status DC Heparin Sodium/ Sodium Chloride 500 ml @ As Directed STK-MED ONCE .ROUTE ; Start 10/01/16 at 19:56; Stop 10/01/16 at 19:57; Status DC Heparin Sodium/ Sodium Chloride 1,000 unit 1X ONCE IART Last administered on t 20:40; Start 10/01/16 at 20:30; Stop 10/01/16 at 20:31; Status DC Heparin Sodium/ Sodium Chloride 1,000 unit 1X ONCE IART Last administered on 20:40; Start 10/01/16 at 20:30; Stop 10/01/16 at 20:31; Status DC Midazolam HCl (Versed) 2 mg 1X ONCE IV Last administered on 10/01/16 20:40; Start 10/01/16 at 20:30; Stop 10/01/16 at 20:31; Status DC Fentanyl Citrate (Fentanyl 5ml Vial) 100 mcg 1X ONCE IV Last administered on 20:41; Start 10/01/16 at 20:30; Stop 10/01/16 at 20:31; Status DC Iohexol (Omnipaque 350 Mg/ml) 100 ml 1X ONCE IART Last administered on 20:40; Start 10/01/16 at 20:30; Stop 10/01/16 at 20:31; Status DC Lidocaine HCl 17 ml 1X ONCE IJ Last administered on 10/01/16 20:40; Start at 20:30; Stop 10/01/16 at 20:31; Status DC Sodium Chloride 3 ml 3 ml QSHIFT PRN IV AFTER MEDS AND BLOOD DRAWS; Start 10/01 at 21:15 Sodium Chloride (Iv Sodium Chloride 0.9% 1000ml Bag) 1,000 ml @ 50 mls/hr Q20H IV Last administered on 10/03/16 16:50; Start 10/01/16 at 21:14 Aspirin (Ecotrin) 325 mg DAILYWBKFT PO Last administered on 10/03/16 09:54; Start 10/02/16 at 08:00; Stop 10/03/16 at 14:38; Status DC Metoprolol Tartrate (Lopressor) 12.5 mg BID PO Last administered on 10/02/16 08:55; Start 10/01/16 at 22:00; Stop 10/02/16 at 15:48; Status DC Lisinopril (Prinivil) 5 mg DAILY PO Last administered on 10/02/16 11:25; Start 10/02/16 at 09:00; Stop 10/02/16 at 17:05; Status DC Atorvastatin Calcium (Lipitor) 20 mg QHS PO Last administered on 10/03/16 20: 53; Start 10/01/16 at 22:00 Fentanyl Citrate (Fentanyl 2ml Vial) 50 mcg PRN Q1HR PRN IV Moderate or severe pain Last administered on 10/02/16 04:03; Start 10/01/16 at 21:15; Stop at 04:48; Status DC Ondansetron HCl (Zofran) 4 mg PRN Q6HRS PRN IV NAUSEA/VOMITING; Start 10/01/16 at 21:15; Stop 10/02/16 at 04:48; Status DC Nitroglycerin (Nitrostat) 0.4 mg PRN Q5MIN PRN SL CHEST PAIN; Start 10/01/16 at 21:15; Status UNV Acetaminophen/ Hydrocodone Bitart 1 tab 1 tab PRN Q4HRS PRN PO MILD PAIN Last administered on 10/04/16 08:38; Start 10/01/16 at 21:15 Magnesium Sulfate/ Dextrose (Magnesium Sulfate PREMIX 1GM) 100 ml @ 100 mls/hr 1X ONCE IV Last administered on 10/01/16 22:58; Start 10/01/16 at 22:30; Stop 10/01/16 at 23:29; Status DC Hydromorphone HCl (Dilaudid) 0.5 mg 1X ONCE IV Last administered on 10/01/16 22:59; Start 10/01/16 at 23:00; Stop 10/01/16 at 23:01; Status DC Fentanyl Citrate (Fentanyl 2ml Vial) 100 mcg STK-MED ONCE .ROUTE ; Start at 01:59; Stop 10/02/16 at 02:00; Status DC Fentanyl Citrate (Fentanyl 2ml Vial) 100 mcg STK-MED ONCE .ROUTE ; Start at 04:00; Stop 10/02/16 at 04:01; Status DC Fentanyl Citrate (Fentanyl 2ml Vial) 50 mcg PRN Q1HR PRN IV Moderate or severe pain Last administered on 10/02/16 11:23; Start 10/02/16 at 04:48; Stop at 11:25; Status DC Ondansetron HCl (Zofran) 4 mg PRN Q6HRS PRN IV NAUSEA/VOMITING Last administered on 10/02/16 11:10; Start 10/02/16 at 04:48 Potassium Chloride (Klor-Con) 40 meq 1X ONCE PO Last administered on 11:25; Start 10/02/16 at 10:45; Stop 10/02/16 at 10:46; Status DC Amiodarone HCl (Cordarone) 150 mg STK-MED ONCE .ROUTE ; Start 10/01/16 at 12:00 ; Stop 10/02/16 at 10:42; Status DC Epinephrine HCl (Epinephrine Syringe) 1 mg STK-MED ONCE .ROUTE ; Start 10/01/16 at 12:00; Stop 10/02/16 at 10:42; Status DC Metoprolol Tartrate (Lopressor) 25 mg BID PO Last administered on 10/02/16 21: 04; Start 10/02/16 at 21:00; Stop 10/03/16 at 04:48; Status DC Amiodarone HCl (Cordarone) 40 mg DAILY PO ; Start 10/02/16 at 21:00; Stop at 21:00; Status DC Lisinopril (Prinivil) 10 mg DAILY PO Last administered on 10/04/16 08:44; Start 10/03/16 at 09:00 Hydralazine HCl (Apresoline) 10 mg PRN Q4HRS PRN IVP ELEVATED BP, SEE COMMENTS ; Start 10/02/16 at 17:15 Amiodarone HCl (Cordarone) 400 mg DAILY PO Last administered on 10/04/16 08:37 ; Start 10/03/16 at 09:00 Amiodarone HCl (Cordarone) 400 mg 1X ONCE PO Last administered on 10/02/16 21 :05; Start 10/02/16 at 17:30; Stop 10/02/16 at 17:31; Status DC Lorazepam (Ativan) 2 mg PRN Q6HRS PRN IV ANXIETY / AGITATION Last administered on 10/02/16 22:18; Start 10/02/16 at 20:00 Lorazepam (Ativan) 1 mg PRN Q6HRS PRN IV ANXIETY / AGITATION; Start 10/02/16 at 20:00 Metoprolol Tartrate (Lopressor) 25 mg BID PO Last administered on 10/04/16 08: 39; Start 10/03/16 at 09:00 Alprazolam (Xanax) 1 mg PRN Q6HRS PRN PO ANXIETY / AGITATION Last administered on 10/04/16 08:44; Start 10/03/16 at 10:45 Lidocaine HCl 20 ml 20 ml STK-MED ONCE .ROUTE ; Start 10/03/16 at 11:46; Stop at 11:47; Status DC Heparin Sodium/ Sodium Chloride 1,500 ml @ As Directed STK-MED ONCE .ROUTE ; Start 10/03/16 at 11:46; Stop 10/03/16 at 11:47; Status DC Iodixanol (Visipaque 320) 100 ml STK-MED ONCE .ROUTE ; Start 10/03/16 at 11:46; Stop 10/03/16 at 11:47; Status DC Fentanyl Citrate (Fentanyl 2ml Vial) 100 mcg STK-MED ONCE .ROUTE ; Start at 12:52; Stop 10/03/16 at 12:53; Status DC Midazolam HCl (Versed) 5 mg STK-MED ONCE .ROUTE ; Start 10/03/16 at 12:52; Stop 10/03/16 at 12:53; Status DC Bivalirudin (Angiomax) 250 mg STK-MED ONCE IV ; Start 10/03/16 at 13:18; Stop at 13:19; Status DC Heparin Sodium/ Sodium Chloride 1,000 unit 1X ONCE IART Last administered on 14:10; Start 10/03/16 at 13:30; Stop 10/03/16 at 13:33; Status DC Midazolam HCl (Versed) 5 mg 1X ONCE IV Last administered on 10/03/16 14:10; Start 10/03/16 at 13:30; Stop 10/03/16 at 13:33; Status DC Fentanyl Citrate (Fentanyl 2ml Vial) 100 mcg 1X ONCE IV Last administered on 14:10; Start 10/03/16 at 13:30; Stop 10/03/16 at 13:33; Status DC Iodixanol (Visipaque 320) 100 ml 1X ONCE IART Last administered on 10/03/16 14:09; Start 10/03/16 at 13:30; Stop 10/03/16 at 13:33; Status DC Bivalirudin (Angiomax) 250 mg 1X ONCE IV Last administered on 10/03/16 14:10 ; Start 10/03/16 at 13:30; Stop 10/03/16 at 13:33; Status DC Lidocaine HCl 20 ml 1X ONCE IJ Last administered on 10/03/16 14:09; Start at 13:30; Stop 10/03/16 at 13:33; Status DC Info (Do NOT chart on this entry -- for MONITORING) 1 each PRN DAILY PRN MC SEE COMMENTS; Start 10/03/16 at 13:45; Stop 10/05/16 at 13:44 Iodixanol (Visipaque 320) 100 ml STK-MED ONCE .ROUTE ; Start 10/03/16 at 13:41; Stop 10/03/16 at 13:42; Status DC Prasugrel (Effient) 10 mg STK-MED ONCE .ROUTE ; Start 10/03/16 at 14:05; Stop at 14:06; Status DC Prasugrel (Effient) 60 mg 1X ONCE PO Last administered on 10/03/16 14:11; Start 10/03/16 at 14:15; Stop 10/03/16 at 14:16; Status DC Nitroglycerin (Nitroglycerin) 100 mcg 1X ONCE ICAR Last administered on 14:15; Start 10/03/16 at 13:43; Stop 10/03/16 at 14:15; Status DC Sodium Chloride 3 ml 3 ml QSHIFT PRN IV AFTER MEDS AND BLOOD DRAWS; Start 10/03 at 14:30 Sodium Chloride (Iv Sodium Chloride 0.9% 1000ml Bag) 1,000 ml @ 75 mls/hr [id number] IV ; Start 10/03/16 at 14:23; Stop 10/03/16 at 22:22; Status DC Aspirin (Ecotrin) 81 mg DAILYWBKFT PO Last administered on 10/04/16 08:39; Start 10/04/16 at 08:00 Prasugrel (Effient) 10 mg DAILYWBKFT PO Last administered on 10/04/16 08:39; Start 10/04/16 at 08:00 Acetaminophen (Tylenol) 650 mg PRN Q6HRS PRN PO MILD PAIN / TEMP; Start at 14:30 Fentanyl Citrate (Fentanyl 2ml Vial) 50 mcg PRN Q1HR PRN IV MODERATE OR SEVERE PAIN Last administered on 10/04/16 09:20; Start 10/03/16 at 14:30 Cyclobenzaprine HCl (Flexeril) 10 mg PRN TID PRN PO MUSCLE SPASMS; Start at 14:30; Stop 10/03/16 at 14:36; Status DC Nitroglycerin 0.4 mg 0.4 mg PRN Q5MIN PRN SL CHEST PAIN; Start 10/03/16 at 14: 30 Amiodarone HCl/ Dextrose (Cordarone) 103 ml @ 10 mls/min 1X PRN PRN IV FOR VENTRICULAR TACHYCARDIA; Start 10/03/16 at 14:30 Lidocaine HCl 100 mg 1X PRN PRN IV FOR VENTRICULAR TACHYCARDIA; Start 10/03/16 at 14:30 Atropine Sulfate 0.5 mg PRN 1X PRN IV BRADYCARDIA; Start 10/03/16 at 14:30 Cyclobenzaprine HCl (Flexeril) 10 mg PRN TID PRN PO MUSCLE SPASMS Last administered on 10/04/16 08:36; Start 10/03/16 at 14:36 Cyclobenzaprine HCl (Flexeril) 10 mg 1X ONCE PO Last administered on 14:54; Start 10/03/16 at 15:00; Stop 10/03/16 at 15:01; Status DC Fentanyl Citrate (Fentanyl 2ml Vial) 50 mcg 1X ONCE IV Last administered on 16:47; Start 10/03/16 at 15:30; Stop 10/03/16 at 15:33; Status DC Active Scripts Active Effient (Prasugrel Hcl) 10 Mg Tablet 10 Mg PO DAILYWBKFT Metoprolol Tartrate 25 Mg Tablet 25 Mg PO BID Lisinopril 10 Mg Tablet 10 Mg PO DAILY Atorvastatin Calcium 20 Mg Tablet 20 Mg PO QHS Amiodarone Hcl 200 Mg Tablet 400 Mg PO DAILY Reported Aspirin 81 Mg Tab.chew 1 Tab PO DAILY Vitals/I & O Vital Sign - Last 24 Hours 10/03/16 10/03/16 10/03/16 10/03/16 12:01 12:02 14:00 14:10 Pulse 65 71 Resp 15 22 21 B/P 152/90 Pulse Ox 97 97 O2 Delivery Room Air Room Air Room Air Room Air 10/03/16 10/03/16 10/03/16 10/03/16 14:26 14:44 15:00 15:15 Pulse 69 66 66 Resp 24 24 20 15 B/P 150/85 146/91 140/82 Pulse Ox 94 95 95 94 O2 Delivery Room Air Room Air Room Air Room Air 10/03/16 10/03/16 10/03/16 10/03/16 15:30 16:00 16:00 16:30 Temp 98.0 98.0 Pulse 74 68 62 Resp 22 15 18 B/P 157/100 151/93 142/74 Pulse Ox 94 96 97 O2 Delivery Room Air Room Air Room Air Room Air 10/03/16 10/03/16 10/03/16 10/03/16 16:47 17:00 18:00 19:00 Pulse 64 70 70 Resp 18 26 15 B/P 142/72 117/95 151/108 Pulse Ox 96 97 97 96 O2 Delivery Room Air Room Air Room Air Room Air 10/03/16 10/03/16 10/03/16 10/03/16 20:00 20:00 20:53 20:53 Temp 98.0 98.0 Pulse 59 80 Resp 12 20 B/P 110/82 110/82 Pulse Ox 94 O2 Delivery Room Air Room Air Room Air 10/03/16 10/03/16 10/03/16 10/04/16 21:00 22:00 23:00 00:00 Temp 97.8 97.8 Pulse 66 62 59 61 Resp 16 17 16 14 B/P 108/80 129/57 104/69 125/66 Pulse Ox 94 95 94 94 O2 Delivery Room Air Room Air Room Air Room Air 10/04/16 10/04/16 10/04/16 10/04/16 00:00 01:00 02:00 03:00 Pulse 59 70 55 Resp 16 20 12 B/P 103/61 113/62 138/62 Pulse Ox 95 94 94 O2 Delivery Room Air Room Air Room Air Room Air 10/04/16 10/04/16 10/04/16 10/04/16 04:00 04:00 05:00 06:00 Temp 98.0 98.0 Pulse 59 62 73 Resp 10 15 16 B/P 113/77 118/75 122/85 Pulse Ox 94 94 96 O2 Delivery Room Air Room Air Room Air Room Air 10/04/16 10/04/16 10/04/16 10/04/16 08:37 08:38 08:39 08:44 Pulse 85 85 85 Resp 18 B/P 133/77 133/77 133/77 Pulse Ox 98 O2 Delivery Room Air 10/04/16 10/04/16 10/04/16 09:20 09:38 09:38 Resp 20 18 18 Pulse Ox 97 100 100 O2 Delivery Room Air Room Air Room Air Intake and Output 10/03/16 10/03/16 10/04/16 15:00 23:00 07:00 Intake Total 0 ml 850 ml 1400 ml Output Total 650 ml 150 ml 800 ml Balance -650 ml 700 ml 600 ml JACKY DEXTER III DO Oct 04, 2016 11:48
[2016-10-04] MEDS ORDERED: LIDOCAINE 2% 100 MG/5 ML SYRINGE. IV PRN (13:36)
--- NOTE | 2016-10-06 09:41 | CARD ---
APPROVED REPORT Procedures. Left heart catheterization. Selective coronary angiogram. Injection of saphenous grafts and a GONSALEZ. The patient is a 50-year-old male with a history of previous bypass surgery. He was brought to the em ergency room due to episodes of chest pain. He developed V. tach in the emergency room and was cardio verted. He continues to have pain. Of note the patient had stopped all his medications other than an aspirin tablet a day. Cardiac catheterization and possible revascularization were recommended. Risks and benefits were discussed with the patient. He agreed to proceed. After informed consent was obtained the patient was brought to the heart catheterization lab. The are a of the right femoral artery was prepared in the usual manner with Betadine, sterile draping a local anesthetic. An 18-gauge needle was used to enter the right femoral artery, a wire placed and a 6 Aly nch sheath placed over the wire. A 6 [place] JL4 diagnostic catheter was advanced the ascending aorta. Was then used to engage the left system and sequential injections in various views were obtained. A 6 [place] JR4 diagnostic catheter was advanced the ascending aorta. It was used to engage the right co ronary artery and an injection was performed. It had suboptimal engagement of a saphenous vein graft to the right coronary artery. It was then used to engage the saphenous graft to the left circumflex s ystem and sequential injections in various views were obtained. It was then used to engage the left s ubclavian artery and an exchange wire was placed. Using an exchange technique and GONSALEZ graft cathete r was placed into the left subclavian artery system. It was then used to engage the GONSALEZ graft and se quential injections in various views were obtained. Next a right bypass graft catheter was advanced t he ascending aorta and used to engage the saphenous vein graft to the right coronary artery. Sequenti al injections in various views were obtained. The images showed no acute occlusions. All grafts were patent. No intervention was deemed appropriate at this time. Injection of the sheath showed normal pl acement. The sheath was removed and sealed with an Angio-Seal product. The patient was then moved to the intensive care unit. Findings. Hemodynamics. Aortic root pressure 160/98. Coronaries. Left main. The left main had an 85% lesion. Left anterior descending. The LAD had a proximal greater than 90% lesion. Left circumflex. The left circumflex had occluded obtuse marginal branches. Right coronary artery. The right coronary had a mid stent which was chronically occluded. Grafts. GONSALEZ graft to the LAD was patent with distal venetie LAD vessel disease. Assessment graft to the right coronary artery was patent to a small distal right coronary artery. Saphenous vein graft to the obtuse marginal system was patent. <Conclusion> Severe three-vessel coronary disease including left main disease. Patent GONSALEZ graft to the LAD. Patent vein graft to the right coronary artery. Patent vein graft to an obtuse marginal vessel and a PDA.
--- NOTE | 2016-10-06 09:54 | CARD ---
APPROVED REPORT Procedures. Stent placement to the left main vessel. The patient is a 50-year-old male with a history of previous bypass surgery and an episode of ventric ular tachycardia arrest 2 days ago. Catheterization at that time showed patent vessels to the right s ystem, LAD and occluded obtuse marginal branches. There was an 85% left main lesion at the time which was not stented secondary the patient having flow and having a recent V. tach arrest. Additionally t he patient had not taken his medications other than aspirin for at least several months. After discus day with the patient in regards to medical compliance as well as his recent episode of VT and the ar ea of the left main supplying some ungrafted vessels we have recommended stenting of the left main. R isks and benefits were discussed the patient and he has agreed to proceed. After informed consent was obtained the patient was brought to the heart catheterization lab. The are a of the left femoral artery was prepared in the usual manner with Betadine, sterile draping and loca l anesthetic. An 18-gauge needle was used to enter the left femoral artery, a wire placed and a 6 Aly nch sheath placed over the wire. A 6 Tamazight 3.5 EXP guide was advanced to the ascending aorta. It was then used to engage the left main system. Heparin and IIb IIIa inhibitors were given as per protocol . A Hi-Torque wire was used to cross the lesion with a wire being placed in the left circumflex syste m. A 2.5 x 12 Trek balloon was used for initial 2 inflations at 10 ishmael for 15 seconds. Imaging showed that a 12 mm length balloon appeared to be slightly too long for the lesion and therefore a 3.0 x 8 Multi link vision bare metal stent was deployed at 15 ishmael for 15 seconds. This showed good expansion with resolution of the majority of the lesion. However a small area of lesion was still present more proximally of the stent and therefore a second 3.0 x 8 mm stent was deployed in overlapping fashion with one inflation at 15 ishmael for 15 seconds with one overlapping inflation at 15 ishmael for 10 seconds. Residual lesion was 0%. The wire and guiding system removed from the patient. Injection of the sheath showed normal placement. The sheath was removed and sealed with an Angio-Seal. The patient was then moved to the ICU in stable condition. Findings. 85% left main lesion. Protected left main. Successful stenting of the left main with a 0% residual lesion. <Conclusion> Severe left main disease as noted above. Successful stenting of the left main with a 0% residual lesion.
[2016-10-09 06:49] LABS: POTASSIUM ISTAT 3.7 mmol/L (3.5-5.0)
--- NOTE | 2016-10-15 20:16 | DS ---
DATE OF DISCHARGE: 10/04/2016 ADMISSION DIAGNOSIS: Acute myocardial infarction. DISCHARGE DIAGNOSIS: Resolving acute myocardial infarction with new stent placement to the coronary arteries. HOSPITAL COURSE: The patient is a pleasant 50-year-old male presented with acute myocardial infarction. He was admitted. He was taken to the receiver/laborer and stent was placed. Postprocedure, he has done well. We have planned to discharge. DISPOSITION: Home. ACTIVITY: As tolerated. DIET: Low sodium. MEDICATIONS: Please see the MRAD. TOTAL TIME: 36 minutes. JACKY DEXTER DO DR: COLE/zoie JOB#: [id number] / [id number]
== END 2016-10-04 14:30 | disposition home or self-care (01) | DRG 248 ==
LOC: ER 18:59 → 1 WEST ICU 19:30
PROVIDERS: ADMIT Internal Medicine Hematology & Oncology; ATTEND Internal Medicine Hematology & Oncology
PROC: 4A023N7 Measurement of Cardiac Sampling and Pressure, Left Heart, Percutaneous Approach (ICD-10-PCS; principal; 2016-10-01)
PROC: 02703DZ Dilation of Coronary Artery, One Artery with Intraluminal Device, Percutaneous Approach (ICD-10-PCS; 2016-10-01)
PROC: B2111ZZ Fluoroscopy of Multiple Coronary Arteries using Low Osmolar Contrast (ICD-10-PCS; 2016-10-01)
DX: I21.3 ST elevation (STEMI) myocardial infarction of unspecified site (principal); I46.9 Cardiac arrest, cause unspecified; I47.2 Ventricular tachycardia; E78.5 Hyperlipidemia, unspecified; E87.6 Hypokalemia; E78.00 Pure hypercholesterolemia, unspecified; F10.10 Alcohol abuse, uncomplicated; I25.10 Atherosclerotic heart disease of native coronary artery without angina pectoris; I25.5 Ischemic cardiomyopathy; J44.9 Chronic obstructive pulmonary disease, unspecified; I11.0 Hypertensive heart disease with heart failure; M54.5 Low back pain; I50.9 Heart failure, unspecified; Z96.612 Presence of left artificial shoulder joint; F14.90 Cocaine use, unspecified, uncomplicated; Z80.1 Family history of malignant neoplasm of trachea, bronchus and lung; Z82.49 Family history of ischemic heart disease and other diseases of the circulatory system; Z86.79 Personal history of other diseases of the circulatory system; Z87.891 Personal history of nicotine dependence; Z91.19 Patient's noncompliance with other medical treatment and regimen; Z95.1 Presence of aortocoronary bypass graft
CPT/HCPCS: 36415; 71010; 80047; 80048; 80061; 80076; 83735; 83880; 84484; 85027; 87641; 92928; 93005; 93306; 93455; 96374; 99406; C1725; C1769; C1771; C1877; C1887; C1892; G0269; J0171; J0282; J0583; J1170; J2060; J2250; J2405; J3010; J3475; J3490; J7030; Q9967; 99291-25

== ENCOUNTER 2017-02-23 21:59 | Inpatient (IN) | payer SELFPAY ==
[~2017-02-23] VITALS: Ht 175.3 cm; Wt 114.8 kg
[~2017-02-23 21:59] MED LIST changes: +AMIO200T2 PO; -AMIODARONE 150 MG/3 ML VIAL ONE; +ASPI-630 PO; +ATOR20TA58 PO; -EPINEPHRINE 1 MG/10 ML SYRINGE. ONE; +LISI10TA2 PO; +METO25TA4 PO; +PRAS10TA9 PO
[2017-02-23 22:29] LABS: BASO # 0.2 x10^3/uL (0.0-0.2); BASO % 1 % (0-3); EOS % 3 % (0-3); HEMATOCRIT 44.9 % (39.0-53.0); HEMOGLOBIN 15.8 g/dL (13.0-17.5); LYMPH % 27 % (24-48); MEAN CORPUSCULAR HEMOGLOBIN 33 pg (25-35); MEAN CORPUSCULAR HGB CONC 35 g/dL (31-37); MEAN CORPUSCULAR VOLUME 93 fL (79-100); MONO % 6 % (0-9); NEUT % 62 % (31-73); PLATELET COUNT 201 x10^3/uL (140-400); RED BLOOD COUNT 4.82 x10^6/uL (4.30-5.70); WHITE BLOOD COUNT 14.8 x10^3/uL (4.0-11.0)
[2017-02-23 22:32] LABS: CALCIUM 8.6 mg/dL (8.5-10.1); CREATININE 1.3 mg/dL (0.7-1.3); GFR 57.7; POTASSIUM 4.1 mmol/L (3.5-5.1)
[2017-02-23 22:39] LABS: ALBUMIN 3.8 g/dL (3.4-5.0); ALBUMIN/GLOBULIN RATIO 1.2 (1.0-1.7); TOTAL BILIRUBIN 0.4 mg/dL (0.2-1.0)
--- NOTE | 2017-02-23 22:42 | PHYS DOC ---
Past Medical History Past Medical History: Asthma, CAD, High Cholesterol, Hypertension Additional Past Medical Histor: 17 heart attacks Past Surgical History: No Surgical History, Angioplasty, Appendectomy, Coronary Bypass Surgery Additional Past Surgical Histo: Left shoulder replacementx2 Alcohol Use: Occasionally Drug Use: None Adult General Chief Complaint Chief Complaint: CHEST PAIN [facility] HPI Patient is a 51 year old male with history of CAD, CABG, recent hospitalization for ST segment elevation [place] with V. fib arrest while in the emergency department presents with intermittent staccato chest pain for the past 3 days. Symptoms initially started with exertion but now occur while at rest. Episodes last between 5 and 15 minutes. Pain is rated moderate to severe it is retrosternal and radiates to the jaw and left shoulder. It is partially relieved with rest. Patient has takes aspirin but not nitroglycerin. He was prescribed Effient 3 months ago upon discharge from the hospital. He was compliant for the first 2 months however had to discontinue medication 1 month ago due to lack of finances as he cannot afford the $500 a month to fill the prescription. The patient has also been noncompliant with his other medications. He is drinks nightly and smokes occasionally. 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 Patient is currently reports only mild retrosternal pain. He denies nausea , sweats, shortness of breath, abdominal pain or bloating. Denies leg pain or swelling. No history of DVT, PE or CHF. No other acute symptoms or complaints. Review of Systems Review of Systems ROS as per HPI. All other ROS are negative. Current Medications Current Medications Current Medications Medications (Trade) Dose Ordered Sig/Enid Start Time Stop Time Status Last Admin Dose Admin Heparin Sodium (Porcine) (Heparin Sodium) 2,700 unit PRN Q6HRS PRN 02/23/17 22:45 02/23/17 23:06 2,700 UNIT Heparin Sodium/ Dextrose 500 ml @ 0 mls/hr CONT PRN 02/23/17 22:45 02/23/17 23:20 26.2 MLS/HR Allergies Allergies Allergies Coded Allergies Type Severity Reaction Last Updated Verified I S O L A T I O N *CONTACT* Allergy Unknown 10/03/16 Yes No Known Medication Allergies Allergy Unknown 10/03/16 Yes Physical Exam Physical Exam Constitutional: Well developed, well nourished, no acute distress, non-toxic appearance. [] HENT: Normocephalic, atraumatic, bilateral external ears normal, oropharynx moist, no oral exudates, nose normal. [] Eyes: PERRLA, EOMI, conjunctiva normal, no discharge. [] Neck: Normal range of motion, no tenderness, supple, no stridor. [] Cardiovascular:Heart rate regular rhythm, no murmur [] Lungs & Thorax: Bilateral breath sounds clear to auscultation [] Abdomen: Bowel sounds normal, soft, no tenderness, no masses, no pulsatile masses. [] Skin: Warm, dry, no erythema, no rash. [] Back: No tenderness, no CVA tenderness. [] Extremities: No tenderness, no cyanosis, no clubbing, ROM intact, no edema. [] Neurologic: Alert and oriented X 3, normal motor function, normal sensory function, no focal deficits noted. [] Psychologic: Affect normal, judgement normal, mood normal. [] Current Patient Data Vital Signs Vital Signs Date Time Temp Pulse Resp B/P (MAP) Pulse Ox O2 Delivery O2 Flow Rate FiO2 02/23/17 22:07 97.6 87 18 181/103 (129) 96 Room Air 97.6 Lab Values Laboratory Tests Test 02/23/17 22:13 White Blood Count 14.8 x10^3/uL (4.0-11.0) H Red Blood Count 4.82 x10^6/uL (4.30-5.70) Hemoglobin 15.8 g/dL (13.0-17.5) Hematocrit 44.9 % (39.0-53.0) Mean Corpuscular Volume 93 fL (79-100) Mean Corpuscular Hemoglobin 33 pg (25-35) Mean Corpuscular Hemoglobin Concent 35 g/dL (31-37) Red Cell Distribution Width 13.0 % (11.5-14.5) Platelet Count 201 x10^3/uL (140-400) Neutrophils (%) (Auto) 62 % (31-73) Lymphocytes (%) (Auto) 27 % (24-48) Monocytes (%) (Auto) 6 % (0-9) Eosinophils (%) (Auto) 3 % (0-3) Basophils (%) (Auto) 1 % (0-3) Neutrophils # (Auto) 9.3 x10^3uL (1.8-7.7) H Lymphocytes # (Auto) 4.0 x10^3/uL (1.0-4.8) Monocytes # (Auto) 0.9 x10^3/uL (0.0-1.1) Eosinophils # (Auto) 0.4 x10^3/uL (0.0-0.7) Basophils # (Auto) 0.2 x10^3/uL (0.0-0.2) Sodium Level 145 mmol/L (136-145) Potassium Level 4.1 mmol/L (3.5-5.1) Chloride Level 107 mmol/L (98-107) Carbon Dioxide Level 28 mmol/L (21-32) Anion Gap 10 (6-14) Blood Urea Nitrogen 22 mg/dL (8-26) Creatinine 1.3 mg/dL (0.7-1.3) Estimated GFR (Cockcroft-Gault) 57.7 BUN/Creatinine Ratio 17 (6-20) Glucose Level 107 mg/dL (70-99) H Calcium Level 8.6 mg/dL (8.5-10.1) Total Bilirubin 0.4 mg/dL (0.2-1.0) Aspartate Amino Transferase (AST) 21 U/L (15-37) Alanine Aminotransferase (ALT) 37 U/L (16-63) Alkaline Phosphatase 99 U/L (46-116) Creatine Kinase 144 U/L (39-308) Troponin I Quantitative 0.545 ng/mL (0.000-0.055) Total Protein 7.0 g/dL (6.4-8.2) Albumin 3.8 g/dL (3.4-5.0) Albumin/Globulin Ratio 1.2 (1.0-1.7) Laboratory Tests 02/23/17 22:13 Laboratory Tests 02/23/17 22:13 EKG EKG [EKG: Normal sinus rhythm, rate 90, left axis deviation, no acute ST T wave changes, Q waves in the inferior leads, poor R-wave progression in the anterior leads, no acute ST segment/T-wave changes per preliminary ED review.] Radiology/Procedures Radiology/Procedures [Chest x-ray: No acute cardiopulmonary disease per preliminary ED read.] Course & Med Decision Making Course & Med Decision Making Pertinent Labs and Imaging studies reviewed. (See chart for details) [Patient with acute coronary syndrome with positive troponin. No acute findings on EKG. Pepcid nitroglycerin and heparin given. Cardiology consulted. . Recommendations are Plavix loading dose, CVC admission, continue current treatment and serial cardiac enzymes. Cardiology to see in the morning. Will admit to the hospitalist service. Dr. Escobar to admit. Courtesy bridging orders written. ] Dragon Disclaimer Dragon Disclaimer This electronic medical record was generated, in whole or in part, using a voice recognition dictation system. Departure Departure Impression: Primary Impression: Acute non-ST segment elevation myocardial infarction Disposition: ADMITTED INPATIENT Admitting Physician: Jeanne Escobar Condition: GUARDED Referrals: NO PCP (PCP) DEZ LIVINGSTON DO Feb 23, 2017 22:42
[2017-02-23] MEDS ORDERED: HEPARIN 25,000UTS/500ML PREMIX 500 ML IV PRN (22:45)
[2017-02-23] MEDS ORDERED: HEPARIN for IV BOLUS 10,000 UNIT/10 ML VIAL. IV PRN (22:45)
[2017-02-23] MEDS ORDERED: FAMOTIDINE 20 MG/2 ML VIAL IVP ONE (23:00)
[2017-02-23] MEDS ORDERED: NITROGLYCERIN PREMIX 250 ML IV ONE (23:00)
[2017-02-23] MEDS ORDERED: NITROGLYCERIN OINT 1 GM PACKET. TP ONE (23:00)
[2017-02-23] MEDS ORDERED: ASPIRIN CHEWABLE 81 MG TABLET. PO ONE (23:00)
[2017-02-23] MEDS ORDERED: CLOPIDOGREL BISULFATE 75 MG TABLET PO ONE (23:45)
[2017-02-23] MEDS ORDERED: ONDANSETRON PF 4 MG/2 ML VIAL. IV PRN (23:45)
[2017-02-23] MEDS ORDERED: fentaNYL PF VIAL 100 MCG/2 ML VIAL IV ONE (23:45)
[2017-02-24] VITALS (21 sets, daily range): BP systolic 99–181; BP diastolic 52–91
[2017-02-24] MEDS: IV NORMAL SALINE 1000ML BAG 1,000 ML IV SCH ×3 (00:01→15:45)
[2017-02-24] MEDS: fentaNYL PF VIAL 100 MCG/2 ML VIAL IV PRN ×5 (02:41→17:09)
[2017-02-24] MEDS: ANTI-COAG MONITOR BY PHARMACY. MC PRN (02:42)
[2017-02-24] MEDS: ACETAMINOPHEN 325 MG TABLET. PO PRN ×2 (04:28→10:37)
[2017-02-24 05:51] LABS: BASO # 0.1 x10^3/uL (0.0-0.2); BASO % 1 % (0-3); EOS % 5 % (0-3); HEMATOCRIT 40.7 % (39.0-53.0); HEMOGLOBIN 14.2 g/dL (13.0-17.5); LYMPH # 4.4 x10^3/uL (1.0-4.8); LYMPH % 38 % (24-48); MEAN CORPUSCULAR HEMOGLOBIN 33 pg (25-35); MEAN CORPUSCULAR HGB CONC 35 g/dL (31-37); MEAN CORPUSCULAR VOLUME 94 fL (79-100); MONO % 7 % (0-9); NEUT % 50 % (31-73); PLATELET COUNT 173 x10^3/uL (140-400); RED BLOOD COUNT 4.35 x10^6/uL (4.30-5.70); RED CELL DISTRIBUTION WIDTH 13.1 % (11.5-14.5); WHITE BLOOD COUNT 11.6 x10^3/uL (4.0-11.0)
[2017-02-24 06:19] LABS: CREATININE 1.1 mg/dL (0.7-1.3); POTASSIUM 3.8 mmol/L (3.5-5.1)
--- NOTE | 2017-02-24 07:40 | RAD ---
Exam performed: One view chest. Indication: Chest pain today Date of Service: 02/24/2017 12:03 AM Comparison: 10/01/16. Single AP upright portable view chest findings: Cardiomediastinal silhouette is within upper limits of normal. Previous median sternotomy. No acute infiltrates, effusion or pneumothorax is detected. There is atelectasis or scarring in the left lung base. The bony structures are normal. Impression: Stable one view chest. No acute findings noted.
--- NOTE | 2017-02-24 08:46 | EKG ---
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
[2017-02-24] MEDS ORDERED: ONDANSETRON PF 4 MG/2 ML VIAL. IV PRN (09:03)
[2017-02-24] MEDS ORDERED: MORPHINE SULFATE 4 MG/ML DISP.SYRIN. IV PRN (09:15)
--- NOTE | 2017-02-24 09:37 | PDOC2 ---
CARDIAC CONSULT DATE OF CONSULT Date of Consult DATE: 02/24/17 TIME: 09:27 REASON FOR CONSULT Reason for Consult: NSTEMI REFERRING PHYSICIAN Referring Physician: Dr. Luevano SOURCE Source: Chart review, Patient HISTORY OF PRESENT ILLNESS HISTORY OF PRESENT ILLNESS This is a 51 yo male, known to us from previous hospitalization, who presented with complaints of chest pain. Patient reports pain has been intermittent for the last 4 days, lasting approximately 10-15mins in duration. Pain similar to previous heart attacks. Last night, pain would not relieve so he came into the ED for further evaluation. Pain is located in his left chest. Describes as heaviness. Radiates up to his jaw, causing it to "lock" and over to his left shoulder. Associated with diaphoresis and SOA. No dizziness or palpitations. Pain improved with heparin and nitro gtt. This morning, is CP free but has severe HERNÁNDEZ. Is diaphoretic and had episode of nausea and vomiting- feels this is r/t severe HERNÁNDEZ. Patient had VT arrest in September of this year. Taken to skill labor, which revealed patent GONSALEZ graft to the LAD, patent vein graft to the RCA, patent vein graft to an OM vessel and a PDA, along with an 85% lesion in the left main. Patient underwent successful PCI/BMS to protected LM. Patient provided with as at least 30 days of Effient with coupons and GoodRx discount coupons. Reports compliance with at least 30 days of DAPT with ASA and Effient. Patent also initiate on Amiodarone therapy due to VT arrest. Does have a history of noncompliance. Reports he generally takes his medications only once or twice per week. Has difficulty affording medications. 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 PAST MEDICAL HISTORY Cardiovascular: CAD, CHF (ICM LVEF 40%), HTN, VT, Hyperlipidemia, Other (VT arrest ) Pulmonary: Asthma GI: No pertinent hx Heme/Onc: No pertinent hx Hepatobiliary: No pertinent hx Psych: Anxiety Musculoskeletal: Osteoarthritis Rheumatologic: No pertinent hx Infectious disease: No pertinent hx ENT: No pertinent hx Renal/: No pertinent hx Endocrine: No pertinent hx Dermatology: No pertinent hx PAST SURGICAL HISTORY Past Surgical History: Appendectomy, CABG, Other (coronary stents, left shoulder sx) FAMILY HISTORY Family History: Cancer SOCIAL HISTORY Smoke: 1 pack per day ALCOHOL: social Drugs: None Lives: Alone CURRENT MEDICATIONS CURRENT MEDICATIONS Current Medications Medications (Trade) Dose Ordered Sig/Enid Route PRN Reason Start Time Stop Time Status Last Admin Dose Admin Aspirin (Children'S Aspirin) 324 mg 1X ONCE PO 02/23/17 23:00 02/23/17 23:01 DC 02/23/17 22:52 Famotidine (Pepcid) 20 mg 1X ONCE IVP 02/23/17 23:00 02/23/17 23:01 DC 02/23/17 22:53 Heparin Sodium/ Dextrose 500 ml @ 0 mls/hr CONT PRN IV SEE I/O RECORD 02/23/17 22:45 02/23/17 23:20 Heparin Sodium (Porcine) (Heparin Sodium) 2,700 unit PRN Q6HRS PRN IV FOR UFH LEVEL LESS THAN 0.2 02/23/17 22:45 02/23/17 23:06 Nitroglycerin/ Dextrose 250 ml @ 0 mls/hr 1X ONCE IV 02/23/17 23:00 02/23/17 23:01 DC 02/23/17 23:07 Info (Anti-Coagulation Monitoring By Pharmacy) 1 each PRN DAILY PRN MC SEE COMMENTS 02/23/17 23:00 02/24/17 02:42 Clopidogrel Bisulfate (Plavix) 600 mg 1X ONCE PO 02/23/17 23:45 02/23/17 23:46 DC 02/23/17 23:44 Lorazepam (Ativan) 1 mg 1X ONCE IV 02/23/17 23:45 02/23/17 23:46 DC 02/23/17 23:37 Fentanyl Citrate (Fentanyl 2ml Vial) 50 mcg 1X ONCE IV 02/23/17 23:45 02/23/17 23:46 DC 02/24/17 00:29 Sodium Chloride 1,000 ml @ 125 mls/hr Q8H IV 02/23/17 23:45 02/24/17 23:44 02/24/17 00:01 Fentanyl Citrate (Fentanyl 2ml Vial) 50 mcg PRN Q2HR PRN IV SEVERE PAIN 02/24/17 01:45 02/24/17 07:58 Acetaminophen (Tylenol) 650 mg PRN Q6HRS PRN PO HEADACHE 02/24/17 01:45 02/24/17 04:28 ALLERGIES ALLERGIES: Coded Allergies: I S O L A T I O N *CONTACT* (Verified Allergy, Unknown, 3/31/17) +MRSA screen 10-02-16 No Known Medication Allergies (Verified Allergy, Unknown, 10/03/16) ROS Review of System 14 point ROS conducted with pertinent positives noted above in HPI. PHYSICAL EXAM General: Alert, Oriented X3, Cooperative, No acute distress, Other ( diaphoretic ) HEENT: Atraumatic, Mucous membr. moist/pink Lungs: Clear to auscultation, Normal air movement Heart: Regular rate, Normal S1, Normal S2, Other (soft systolic murmur ) Abdomen: Soft, No tenderness Extremities: No edema, Normal pulses Skin: No breakdown, No significant lesion Neuro: Normal speech, Sensation intact Psych/Mental Status: Mental status NL, Mood NL MUSCULOSKELETAL: Osteoarthritic changes both hands VITALS VITALS Vital Signs Date Time Temp Pulse Resp B/P (MAP) Pulse Ox O2 Delivery O2 Flow Rate FiO2 02/24/17 07:58 Room Air 02/24/17 07:00 97.6 70 18 123/70 (87) 91 97.6 LABS Lab: Laboratory Tests Test 02/23/17 22:13 02/24/17 05:20 White Blood Count 14.8 x10^3/uL (4.0-11.0) 11.6 x10^3/uL (4.0-11.0) Red Blood Count 4.82 x10^6/uL (4.30-5.70) 4.35 x10^6/uL (4.30-5.70) Hemoglobin 15.8 g/dL (13.0-17.5) 14.2 g/dL (13.0-17.5) Hematocrit 44.9 % (39.0-53.0) 40.7 % (39.0-53.0) Mean Corpuscular Volume 93 fL (79-100) 94 fL (79-100) Mean Corpuscular Hemoglobin 33 pg (25-35) 33 pg (25-35) Mean Corpuscular Hemoglobin Concent 35 g/dL (31-37) 35 g/dL (31-37) Red Cell Distribution Width 13.0 % (11.5-14.5) 13.1 % (11.5-14.5) Platelet Count 201 x10^3/uL (140-400) 173 x10^3/uL (140-400) Neutrophils (%) (Auto) 62 % (31-73) 50 % (31-73) Lymphocytes (%) (Auto) 27 % (24-48) 38 % (24-48) Monocytes (%) (Auto) 6 % (0-9) 7 % (0-9) Eosinophils (%) (Auto) 3 % (0-3) 5 % (0-3) Basophils (%) (Auto) 1 % (0-3) 1 % (0-3) Neutrophils # (Auto) 9.3 x10^3uL (1.8-7.7) 5.8 x10^3uL (1.8-7.7) Lymphocytes # (Auto) 4.0 x10^3/uL (1.0-4.8) 4.4 x10^3/uL (1.0-4.8) Monocytes # (Auto) 0.9 x10^3/uL (0.0-1.1) 0.8 x10^3/uL (0.0-1.1) Eosinophils # (Auto) 0.4 x10^3/uL (0.0-0.7) 0.5 x10^3/uL (0.0-0.7) Basophils # (Auto) 0.2 x10^3/uL (0.0-0.2) 0.1 x10^3/uL (0.0-0.2) Sodium Level 145 mmol/L (136-145) 144 mmol/L (136-145) Potassium Level 4.1 mmol/L (3.5-5.1) 3.8 mmol/L (3.5-5.1) Chloride Level 107 mmol/L (98-107) 109 mmol/L (98-107) Carbon Dioxide Level 28 mmol/L (21-32) 25 mmol/L (21-32) Anion Gap 10 (6-14) 10 (6-14) Blood Urea Nitrogen 22 mg/dL (8-26) 23 mg/dL (8-26) Creatinine 1.3 mg/dL (0.7-1.3) 1.1 mg/dL (0.7-1.3) Estimated GFR (Cockcroft-Gault) 57.7 70.0 BUN/Creatinine Ratio 17 (6-20) Glucose Level 107 mg/dL (70-99) 91 mg/dL (70-99) Calcium Level 8.6 mg/dL (8.5-10.1) 8.0 mg/dL (8.5-10.1) Total Bilirubin 0.4 mg/dL (0.2-1.0) Aspartate Amino Transf (AST/SGOT) 21 U/L (15-37) Alanine Aminotransferase (ALT/SGPT) 37 U/L (16-63) Alkaline Phosphatase 99 U/L (46-116) Creatine Kinase 144 U/L (39-308) Troponin I Quantitative 0.545 ng/mL (0.000-0.055) 0.785 ng/mL (0.000-0.055) Total Protein 7.0 g/dL (6.4-8.2) Albumin 3.8 g/dL (3.4-5.0) Albumin/Globulin Ratio 1.2 (1.0-1.7) Heparin Anti-Xa Act, Unfractionated 0.18 IU/mL (0.30-0.70) ECHOCARDIOGRAM ECHOCARDIOGRAM <Conclusion> Left ventricle systolic function is low normal. The Ejection Fraction is 40%. The inferior wall is severely hypokinetic. The lateral wall is mild to moderately hypokinetic. Doppler and Color Flow revealed mild tricuspid regurgitation. The PA pressure was estimated at 40 mmHg. The IVC is normal in size and collapses <50% with inspiration. DATE: 10/02/16 1137 HEART CATH HEART CATH DATE: 10/06/16 0941 Findings. Hemodynamics. Aortic root pressure 160/98. Coronaries. Left main. The left main had an 85% lesion. Left anterior descending. The LAD had a proximal greater than 90% lesion. Left circumflex. The left circumflex had occluded obtuse marginal branches. Right coronary artery. The right coronary had a mid stent which was chronically occluded. Grafts. GONSALEZ graft to the LAD was patent with distal venetie ira LAD vessel disease. Assessment graft to the right coronary artery was patent to a small distal right coronary artery. Saphenous vein graft to the obtuse marginal system was patent. <Conclusion> Severe three-vessel coronary disease including left main disease. Patent GONSALEZ graft to the LAD. Patent vein graft to the right coronary artery. Patent vein graft to an obtuse marginal vessel and a PDA. DATE: 10/06/16 0984 Findings. 85% left main lesion. Protected left main. Successful stenting of the left main with a 0% residual lesion. <Conclusion> Severe left main disease as noted above. Successful stenting of the left main with a 0% residual lesion. ASSESSMENT/PLAN ASSESSMENT/PLAN 1. NSTEMI: highest troponin 0.785. Presently CP free. 2. CAD s/p CABG and coronary stent with most recent to (10/20) as noted above 3. Chronic systolic CHF with ICM: LVEF 40%; compensated 4. H/o VT arrest; on Amiodarone 5. Hypertension; controlled 6. Hyperlipidemia; resume statin 7. Noncompliance; discussed importance of treatment adherence 8. Tobaccoism: cessation discussed and encouraged Recommendations Trend troponin Resume secondary prevention measures. Continue heparin and nitro gtt. Case d/w primary mica plate layer hand. Given significant h/o CAD and symptomatology in setting of NSTEMI, recommend further definitive evaluation with cardiac cath. R/ b/a discussed with patient and is agreeable. Will proceed with later today. Problems: ZIYAD ALMARAZ APRN Feb 24, 2017 09:37
[2017-02-24] MEDS: LISINOPRIL 10 MG TABLET PO SCH (10:36)
[2017-02-24] MEDS: ASPIRIN CHEWABLE 81 MG TABLET. PO SCH (10:36)
[2017-02-24] MEDS: METOPROLOL TART IMMED RELEASE 25 MG TABLET. PO SCH ×2 (10:37→20:23)
[2017-02-24] MEDS: AMIODARONE HCL 200 MG TABLET. PO SCH (10:37)
[2017-02-24] MEDS ORDERED: HEPARIN for ARTERIAL LINE 1,500 ML ONE (12:14)
[2017-02-24] MEDS ORDERED: IOHEXOL 300 MG/ML 100ML VIAL. ONE (12:14)
[2017-02-24] MEDS ORDERED: LIDOCAINE 2% 20 ML VIAL. ONE (12:14)
--- NOTE | 2017-02-24 12:16 | PDOC1 ---
History and Physical Date of Admission Date of Admission DATE: 02/24/17 TIME: 12:10 Identification/Chief Complaint Chief Complaint chest pains Problems: Source Source: Caregiver, Chart review, Patient History of Present Illness History of Present Illness 51 y.o male with hx CAD, CABG and even v fib arrest in the past? comes in with intermittent left sided CP involving left arm, some gen weakness, soa, Did bump trops at ER and some reciprocal EKG Changes (I have personally reviewed), STarted on heparin gtt, still having some chest pains, lasts 5-15 mins, maybe temp relief with IV morphine, PLanned for [facility] later PM. Trops 0.5 and 0.7. NO identifiable precipitating factor. Still smokes and drinks occasionally, first heart attack he claims when he was 23 y.o Past Medical History Cardiovascular: CAD, CHF (ICM LVEF 40%), HTN, [place], Hyperlipidemia, Other (VT arrest ) Pulmonary: Asthma GI: No pertinent hx Heme/Onc: No pertinent hx Hepatobiliary: No pertinent hx Psych: Anxiety Musculoskeletal: Osteoarthritis Rheumatologic: No pertinent hx Infectious disease: No pertinent hx ENT: No pertinent hx Renal/: No pertinent hx Endocrine: No pertinent hx Dermatology: No pertinent hx Past Surgical History Past Surgical History: Appendectomy, CABG, Other (coronary stents, left shoulder sx) Family History Family History: Cancer Social History Smoke: 1 pack per day ALCOHOL: social Drugs: None Current Problem List Problem List Problems Medical Problems: (1) Acute non-ST segment elevation myocardial infarction Status: Acute Problems: Current Medications Current Medications Current Medications Aspirin (Children'S Aspirin) 324 mg 1X ONCE PO Last administered on 02/23/17 22:52; Start 02/23/17 at 23:00; Stop 02/23/17 at 23:01; Status DC Nitroglycerin (Nitro-Bid Oint) 1 inch 1X ONCE TP ; Start 02/23/17 at 23:00; Stop 02/23/17 at 23:00; Status DC Famotidine (Pepcid) 20 mg 1X ONCE IVP Last administered on 02/23/17 22:53; Start 02/23/17 at 23:00; Stop 02/23/17 at 23:01; Status DC Heparin Sodium/ Dextrose 500 ml @ 0 mls/hr CONT PRN IV SEE I/O RECORD Last administered on 02/23/17 23:20; Start 02/23/17 at 22:45 Heparin Sodium (Porcine) (Heparin Sodium) 2,700 unit PRN Q6HRS PRN IV FOR UFH LEVEL LESS THAN 0.2 Last administered on 02/23/17 23:06; Start 02/23/17 at 22: 45 Nitroglycerin/ Dextrose 250 ml @ 0 mls/hr 1X ONCE IV Last administered on 02/23 23:07; Start 02/23/17 at 23:00; Stop 02/23/17 at 23:01; Status DC Info (Anti-Coagulation Monitoring By Pharmacy) 1 each PRN DAILY PRN MC SEE COMMENTS Last administered on 02/24/17 02:42; Start 02/23/17 at 23:00 Clopidogrel Bisulfate (Plavix) 600 mg 1X ONCE PO Last administered on 23:44; Start 02/23/17 at 23:45; Stop 02/23/17 at 23:46; Status DC Lorazepam (Ativan) 1 mg 1X ONCE IV Last administered on 02/23/17 23:37; Start 02/23/17 at 23:45; Stop 02/23/17 at 23:46; Status DC Fentanyl Citrate (Fentanyl 2ml Vial) 50 mcg 1X ONCE IV Last administered on 00:29; Start 02/23/17 at 23:45; Stop 02/23/17 at 23:46; Status DC Ondansetron HCl (Zofran) 4 mg PRN Q8HRS PRN IV NAUSEA/VOMITING; Start 02/23/17 at 23:45; Stop 02/24/17 at 09:04; Status DC Sodium Chloride 1,000 ml @ 125 mls/hr Q8H IV Last administered on 02/24/17 10 :39; Start 02/23/17 at 23:45; Stop 02/24/17 at 23:44 Fentanyl Citrate (Fentanyl 2ml Vial) 50 mcg PRN Q2HR PRN IV SEVERE PAIN Last administered on 02/24/17 10:46; Start 02/24/17 at 01:45 Acetaminophen (Tylenol) 650 mg PRN Q6HRS PRN PO HEADACHE Last administered on 10:37; Start 02/24/17 at 01:45 Ondansetron HCl (Zofran) 4 mg PRN Q6HRS PRN IV NAUSEA/VOMITING Last administered on 02/24/17 09:42; Start 02/24/17 at 09:03; Stop 02/25/17 at 09:02 Morphine Sulfate 2 mg PRN Q2HR PRN IV PAIN; Start 02/24/17 at 09:15 Amiodarone HCl (Cordarone) 400 mg DAILY PO Last administered on 02/24/17 10:37 ; Start 02/24/17 at 10:00 Aspirin (Children'S Aspirin) 81 mg DAILYWBKFT PO Last administered on 10:36; Start 02/24/17 at 10:00 Atorvastatin Calcium (Lipitor) 20 mg QHS PO ; Start 02/24/17 at 21:00 Lisinopril (Prinivil) 10 mg DAILY PO Last administered on 02/24/17 10:36; Start 02/24/17 at 10:00 Metoprolol Tartrate (Lopressor) 25 mg BID PO Last administered on 02/24/17 10: 37; Start 02/24/17 at 10:00 Clopidogrel Bisulfate (Plavix) 75 mg DAILYWBKFT PO ; Start 02/25/17 at 08:00 Active Scripts Active Metoprolol Tartrate 25 Mg Tablet 25 Mg PO BID Lisinopril 10 Mg Tablet 10 Mg PO DAILY Atorvastatin Calcium 20 Mg Tablet 20 Mg PO QHS Amiodarone Hcl 200 Mg Tablet 400 Mg PO DAILY Reported Aspirin 81 Mg Tab.chew 1 Tab PO DAILY Allergies Allergies: Coded Allergies: I S O L A T I O N *CONTACT* (Verified Allergy, Unknown, 10/03/16) +MRSA screen 10-02-16 No Known Medication Allergies (Verified Allergy, Unknown, 10/03/16) ROS Review of System as per HPI, all else is neg 14 pt reviewed Physical Exam General: Alert, Oriented X3, Cooperative, No acute distress HEENT: Atraumatic, PERRLA Lungs: Clear to auscultation Heart: S1S2, RRR, no thrills, no rubs, no gallops Cardiovascular: S1, S2 Breasts: Normal, Rt breast nml w/o mass, Lt breast nml w/o mass, Nipples normal Abdomen: Normal bowel sounds, Soft, No tenderness, No hepatosplenomegaly, No masses Male Genitals Exam: normal genitalia, normal prostate Rectal Exam: not examined PELVIC: Nml ext genitalia Extremities: No clubbing, No cyanosis, No edema, Normal pulses, No tenderness/ swelling Skin: No rashes, No breakdown, No significant lesion Neuro: Normal gait, Normal speech, Strength at 5/5 X4 ext, Normal tone, Sensation intact, Cranial nerves 3-12 NL, Reflexes 2+ Psych/Mental Status: Mental status NL, Mood NL Vitals Vitals Vital Signs Date Time Temp Pulse Resp B/P (MAP) Pulse Ox O2 Delivery O2 Flow Rate FiO2 02/24/17 11:24 91 Room Air 02/24/17 11:00 97.6 63 18 123/72 (89) 97.6 Labs Labs Laboratory Tests Test 02/23/17 22:13 02/24/17 05:20 02/24/17 11:25 White Blood Count 14.8 x10^3/uL (4.0-11.0) 11.6 x10^3/uL (4.0-11.0) Red Blood Count 4.82 x10^6/uL (4.30-5.70) 4.35 x10^6/uL (4.30-5.70) Hemoglobin 15.8 g/dL (13.0-17.5) 14.2 g/dL (13.0-17.5) Hematocrit 44.9 % (39.0-53.0) 40.7 % (39.0-53.0) Mean Corpuscular Volume 93 fL (79-100) 94 fL (79-100) Mean Corpuscular Hemoglobin 33 pg (25-35) 33 pg (25-35) Mean Corpuscular Hemoglobin Concent 35 g/dL (31-37) 35 g/dL (31-37) Red Cell Distribution Width 13.0 % (11.5-14.5) 13.1 % (11.5-14.5) Platelet Count 201 x10^3/uL (140-400) 173 x10^3/uL (140-400) Neutrophils (%) (Auto) 62 % (31-73) 50 % (31-73) Lymphocytes (%) (Auto) 27 % (24-48) 38 % (24-48) Monocytes (%) (Auto) 6 % (0-9) 7 % (0-9) Eosinophils (%) (Auto) 3 % (0-3) 5 % (0-3) Basophils (%) (Auto) 1 % (0-3) 1 % (0-3) Neutrophils # (Auto) 9.3 x10^3uL (1.8-7.7) 5.8 x10^3uL (1.8-7.7) Lymphocytes # (Auto) 4.0 x10^3/uL (1.0-4.8) 4.4 x10^3/uL (1.0-4.8) Monocytes # (Auto) 0.9 x10^3/uL (0.0-1.1) 0.8 x10^3/uL (0.0-1.1) Eosinophils # (Auto) 0.4 x10^3/uL (0.0-0.7) 0.5 x10^3/uL (0.0-0.7) Basophils # (Auto) 0.2 x10^3/uL (0.0-0.2) 0.1 x10^3/uL (0.0-0.2) Sodium Level 145 mmol/L (136-145) 144 mmol/L (136-145) Potassium Level 4.1 mmol/L (3.5-5.1) 3.8 mmol/L (3.5-5.1) Chloride Level 107 mmol/L (98-107) 109 mmol/L (98-107) Carbon Dioxide Level 28 mmol/L (21-32) 25 mmol/L (21-32) Anion Gap 10 (6-14) 10 (6-14) Blood Urea Nitrogen 22 mg/dL (8-26) 23 mg/dL (8-26) Creatinine 1.3 mg/dL (0.7-1.3) 1.1 mg/dL (0.7-1.3) Estimated GFR (Cockcroft-Gault) 57.7 70.0 BUN/Creatinine Ratio 17 (6-20) Glucose Level 107 mg/dL (70-99) 91 mg/dL (70-99) Calcium Level 8.6 mg/dL (8.5-10.1) 8.0 mg/dL (8.5-10.1) Total Bilirubin 0.4 mg/dL (0.2-1.0) Aspartate Amino Transf (AST/SGOT) 21 U/L (15-37) Alanine Aminotransferase (ALT/SGPT) 37 U/L (16-63) Alkaline Phosphatase 99 U/L (46-116) Creatine Kinase 144 U/L (39-308) Troponin I Quantitative 0.545 ng/mL (0.000-0.055) 0.785 ng/mL (0.000-0.055) 0.957 ng/mL (0.000-0.055) Total Protein 7.0 g/dL (6.4-8.2) Albumin 3.8 g/dL (3.4-5.0) Albumin/Globulin Ratio 1.2 (1.0-1.7) Heparin Anti-Xa Act, Unfractionated 0.18 IU/mL (0.30-0.70) 0.20 IU/mL (0.30-0.70) Laboratory Tests Test 02/23/17 22:13 02/24/17 05:20 02/24/17 11:25 White Blood Count 14.8 x10^3/uL (4.0-11.0) 11.6 x10^3/uL (4.0-11.0) Red Blood Count 4.82 x10^6/uL (4.30-5.70) 4.35 x10^6/uL (4.30-5.70) Hemoglobin 15.8 g/dL (13.0-17.5) 14.2 g/dL (13.0-17.5) Hematocrit 44.9 % (39.0-53.0) 40.7 % (39.0-53.0) Mean Corpuscular Volume 93 fL (79-100) 94 fL (79-100) Mean Corpuscular Hemoglobin 33 pg (25-35) 33 pg (25-35) Mean Corpuscular Hemoglobin Concent 35 g/dL (31-37) 35 g/dL (31-37) Red Cell Distribution Width 13.0 % (11.5-14.5) 13.1 % (11.5-14.5) Platelet Count 201 x10^3/uL (140-400) 173 x10^3/uL (140-400) Neutrophils (%) (Auto) 62 % (31-73) 50 % (31-73) Lymphocytes (%) (Auto) 27 % (24-48) 38 % (24-48) Monocytes (%) (Auto) 6 % (0-9) 7 % (0-9) Eosinophils (%) (Auto) 3 % (0-3) 5 % (0-3) Basophils (%) (Auto) 1 % (0-3) 1 % (0-3) Neutrophils # (Auto) 9.3 x10^3uL (1.8-7.7) 5.8 x10^3uL (1.8-7.7) Lymphocytes # (Auto) 4.0 x10^3/uL (1.0-4.8) 4.4 x10^3/uL (1.0-4.8) Monocytes # (Auto) 0.9 x10^3/uL (0.0-1.1) 0.8 x10^3/uL (0.0-1.1) Eosinophils # (Auto) 0.4 x10^3/uL (0.0-0.7) 0.5 x10^3/uL (0.0-0.7) Basophils # (Auto) 0.2 x10^3/uL (0.0-0.2) 0.1 x10^3/uL (0.0-0.2) Sodium Level 145 mmol/L (136-145) 144 mmol/L (136-145) Potassium Level 4.1 mmol/L (3.5-5.1) 3.8 mmol/L (3.5-5.1) Chloride Level 107 mmol/L (98-107) 109 mmol/L (98-107) Carbon Dioxide Level 28 mmol/L (21-32) 25 mmol/L (21-32) Anion Gap 10 (6-14) 10 (6-14) Blood Urea Nitrogen 22 mg/dL (8-26) 23 mg/dL (8-26) Creatinine 1.3 mg/dL (0.7-1.3) 1.1 mg/dL (0.7-1.3) Estimated GFR (Cockcroft-Gault) 57.7 70.0 BUN/Creatinine Ratio 17 (6-20) Glucose Level 107 mg/dL (70-99) 91 mg/dL (70-99) Calcium Level 8.6 mg/dL (8.5-10.1) 8.0 mg/dL (8.5-10.1) Total Bilirubin 0.4 mg/dL (0.2-1.0) Aspartate Amino Transf (AST/SGOT) 21 U/L (15-37) Alanine Aminotransferase (ALT/SGPT) 37 U/L (16-63) Alkaline Phosphatase 99 U/L (46-116) Creatine Kinase 144 U/L (39-308) Troponin I Quantitative 0.545 ng/mL (0.000-0.055) 0.785 ng/mL (0.000-0.055) 0.957 ng/mL (0.000-0.055) Total Protein 7.0 g/dL (6.4-8.2) Albumin 3.8 g/dL (3.4-5.0) Albumin/Globulin Ratio 1.2 (1.0-1.7) Heparin Anti-Xa Act, Unfractionated 0.18 IU/mL (0.30-0.70) 0.20 IU/mL (0.30-0.70) VTE Prophylaxis Ordered VTE Prophylaxis Devices: Yes VTE Pharmacological Prophylaxi: Yes Assessment/Plan Assessment/Plan 1. NSTEMI: highest troponin 0.785. Presently CP free. 2. CAD s/p CABG and coronary stent with most recent to (10/20) as noted above 3. Chronic systolic CHF with ICM: LVEF 40%; compensated 4. H/o VT arrest; on Amiodarone 5. Hypertension; controlled 6. Hyperlipidemia; resume statin 7. Noncompliance; discussed importance of treatment adherence 8. 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
[2017-02-24] MEDS ORDERED: MIDAZOLAM HCL/PF 5 MG/5 ML VIAL. ONE (13:26)
[2017-02-24] MEDS ORDERED: fentaNYL PF VIAL 100 MCG/2 ML VIAL ONE (13:26)
[2017-02-24] MEDS ORDERED: LIDOCAINE 2% 20 ML VIAL. IJ ONE (14:00)
[2017-02-24] MEDS ORDERED: MIDAZOLAM HCL/PF 5 MG/5 ML VIAL. IV ONE (14:00)
[2017-02-24] MEDS ORDERED: fentaNYL PF VIAL 100 MCG/2 ML VIAL IV ONE (14:00)
[2017-02-24] MEDS ORDERED: IOHEXOL 300 MG/ML 100ML VIAL. IART ONE (14:00)
[2017-02-24] MEDS ORDERED: CONTRAST GIVEN MC PRN (14:15)
--- NOTE | 2017-02-24 17:16 | PDOC ---
Provider Note Provider Note full report to follow. no significant changes since last cath. stable CAD No stents performed no acute complications JOSE G WASTON MD Feb 24, 2017 17:16
[2017-02-24] MEDS: HYDROcodone/APAP 5/325MG 1 TAB TABLET PO PRN (20:00)
[2017-02-24] MEDS ORDERED: ATORVASTATIN CALCIUM 20 MG TABLET PO SCH (21:00)
[2017-02-25] MEDS: HYDROcodone/APAP 5/325MG 1 TAB TABLET PO PRN (02:25)
[2017-02-25 03:27] VITALS: BP 163/85
[2017-02-25 07:00] VITALS: BP 132/75
[2017-02-25] MEDS ORDERED: CLOPIDOGREL BISULFATE 75 MG TABLET PO SCH (08:00)
[2017-02-25] MEDS: METOPROLOL TART IMMED RELEASE 25 MG TABLET. PO SCH (08:43)
[2017-02-25] MEDS: ASPIRIN CHEWABLE 81 MG TABLET. PO SCH (08:50)
[2017-02-25] MEDS: LISINOPRIL 10 MG TABLET PO SCH (08:51)
[2017-02-25] MEDS: AMIODARONE HCL 200 MG TABLET. PO SCH (08:52)
[2017-02-25] MEDS ORDERED: CLOP75TA57 PO (08:55)
--- NOTE | 2017-02-25 08:59 | CARD ---
APPROVED REPORT Procedure(s) performed: LEFT HEART CATH, CORONARY ANGIOGRAPHY, GRAFT ANGIOGRAPHY, LEFT VENTRICULOGRAP HY MODERATE SEDATION: 50 MINUTES HISTORY The patient is a 51 year-old male with a history of : previous CABG (The CABG date was ). INDICATION The indication(s) include : non-STEMI . PROCEDURE NARRATIVE The patient was brought electively to the cardiac catheterization lab. A timeout was performed confi rming the patient's name, date of , procedure, and site of procedure. All necessary personnel w ere wearing the appropriate protective equipment and radiation monitor devices. After explaining the risks and benefits of the procedure and alternatives, informed consent was obtained. (See nursing no brenda for medications administered). The right groin was sterilely prepped and draped in the usual fas hion. The right groin was infiltrated with 10 mL of 2% lidocaine for subcutaneous anesthesia. A 6 F sheath was inserted into the right femoral artery without difficulty. Right and left coronary angio graphy was performed using standard JR4 and JL4 catheters. Bypass angiography was performed with an M PA, and JR4 catheter. Left ventricular end diastolic pressure was obtained with a pigtail catheter a nd pullback was performed after left ventriculography. All catheter exchanges and advancements were performed over a guidewire. At case completion the right femoral sheath was removed and hemostasis w as achieved with a Mynx Filipe device. The patient tolerated the procedure well and there were no immed iate complications. HEMODYNAMICS: LVEDP 18 mm Hg No gradient on LV to aortic pullback. LEFT VENTRICULOGRAM: EF 55% Anterobasal: Normal. Anterolateral: Normal Apical: Normal Diaphragmatic: Normal Posterobasal: Normal CORONARY ANGIOGRAPHY: LM is a large caliber vessel with a patent previously placed stent. LAD is a small to moderate caliber vessel with a proximal to mid 90% occlusion. The distal vessel afsaneh ls via a patent GONSALEZ and via the antegrade. Ramus is occluded proximally and fills via a patent vein graft. The distal vessel has no significant disease. LCx is a moderate caliber non-dominant vessel with a mid 100% occlusion after OM1. OM1 is a small caliber vessel with normal angiographic appearance. LPL is a moderate caliber vessel, proximally occluded, fills via a patent vein graft. RCA is a large caliber dominant vessel with proximal 100% occlusion at the site of a previously place d stent. Distal vessels are small and diffusely diseased and fill vi a patent vein graft. BYPASS ANGIOGRAPHY: GONSALEZ to LAD: No significant disease at the anastomosis and body of the vessel. SVG sequential graft to Ramus and LPL: Proximal 50% stenosis, no disease in the body and two anastomo tic sites. SVG to distal RCA: Diffuse ectasia with mild irregularities. No anastomotic disease. Distal to the PD A insertion site, the vessel is diffusely diseased. Conclusion 1. Severe apache three vessel CAD 2. Patent LM stent. 3. 4/4 grafts patent. Recommendations Aggressive Medical Therapy
[2017-02-25] MEDS: ANTI-COAG MONITOR BY PHARMACY. MC PRN (09:25)
[2017-02-25 11:00] VITALS: BP 151/80
--- NOTE | 2017-02-25 11:07 | PDOC3 ---
Discharge Summary Visit Information Date of Admission: Feb 23, 2017 Date of Discharge: Feb 25, 2017 Admitting Diagnosis Comment: . NSTEMI: highest troponin 0.785. Presently CP free. 2. CAD s/p CABG and coronary stent with most recent to (10/20) as noted above 3. Chronic systolic CHF with ICM: LVEF 40%; compensated 4. H/o VT arrest; on Amiodarone 5. Hypertension; controlled 6. Hyperlipidemia; resume statin 7. Noncompliance; discussed importance of treatment adherence 8. Tobaccoism: cessation discussed and encouraged Final Diagnosis Problems Medical Problems: (1) Acute non-ST segment elevation myocardial infarction Status: Acute Brief Hospital Course Allergies Allergies Coded Allergies Type Severity Reaction Last Updated Verified I S O L A T I O N *CONTACT* Allergy Unknown 10/03/16 Yes No Known Medication Allergies Allergy Unknown 10/03/16 Yes Vital Signs Vital Signs Date Time Temp Pulse Resp B/P (MAP) Pulse Ox O2 Delivery O2 Flow Rate FiO2 02/25/17 08:52 58 132/75 02/25/17 08:00 Room Air 02/25/17 07:00 97.7 18 93 97.7 02/24/17 14:38 2.0 Lab Results Laboratory Tests Test 02/23/17 22:13 02/24/17 05:20 02/24/17 08:30 02/24/17 11:25 White Blood Count 14.8 x10^3/uL (4.0-11.0) 11.6 x10^3/uL (4.0-11.0) Red Blood Count 4.82 x10^6/uL (4.30-5.70) 4.35 x10^6/uL (4.30-5.70) Hemoglobin 15.8 g/dL (13.0-17.5) 14.2 g/dL (13.0-17.5) Hematocrit 44.9 % (39.0-53.0) 40.7 % (39.0-53.0) Mean Corpuscular Volume 93 fL (79-100) 94 fL (79-100) Mean Corpuscular Hemoglobin 33 pg (25-35) 33 pg (25-35) Mean Corpuscular Hemoglobin Concent 35 g/dL (31-37) 35 g/dL (31-37) Red Cell Distribution Width 13.0 % (11.5-14.5) 13.1 % (11.5-14.5) Platelet Count 201 x10^3/uL (140-400) 173 x10^3/uL (140-400) Neutrophils (%) (Auto) 62 % (31-73) 50 % (31-73) Lymphocytes (%) (Auto) 27 % (24-48) 38 % (24-48) Monocytes (%) (Auto) 6 % (0-9) 7 % (0-9) Eosinophils (%) (Auto) 3 % (0-3) 5 % (0-3) Basophils (%) (Auto) 1 % (0-3) 1 % (0-3) Neutrophils # (Auto) 9.3 x10^3uL (1.8-7.7) 5.8 x10^3uL (1.8-7.7) Lymphocytes # (Auto) 4.0 x10^3/uL (1.0-4.8) 4.4 x10^3/uL (1.0-4.8) Monocytes # (Auto) 0.9 x10^3/uL (0.0-1.1) 0.8 x10^3/uL (0.0-1.1) Eosinophils # (Auto) 0.4 x10^3/uL (0.0-0.7) 0.5 x10^3/uL (0.0-0.7) Basophils # (Auto) 0.2 x10^3/uL (0.0-0.2) 0.1 x10^3/uL (0.0-0.2) Sodium Level 145 mmol/L (136-145) 144 mmol/L (136-145) Potassium Level 4.1 mmol/L (3.5-5.1) 3.8 mmol/L (3.5-5.1) Chloride Level 107 mmol/L (98-107) 109 mmol/L (98-107) Carbon Dioxide Level 28 mmol/L (21-32) 25 mmol/L (21-32) Anion Gap 10 (6-14) 10 (6-14) Blood Urea Nitrogen 22 mg/dL (8-26) 23 mg/dL (8-26) Creatinine 1.3 mg/dL (0.7-1.3) 1.1 mg/dL (0.7-1.3) Estimated GFR (Cockcroft-Gault) 57.7 70.0 BUN/Creatinine Ratio 17 (6-20) Glucose Level 107 mg/dL (70-99) 91 mg/dL (70-99) Calcium Level 8.6 mg/dL (8.5-10.1) 8.0 mg/dL (8.5-10.1) Total Bilirubin 0.4 mg/dL (0.2-1.0) Aspartate Amino Transf (AST/SGOT) 21 U/L (15-37) Alanine Aminotransferase (ALT/SGPT) 37 U/L (16-63) Alkaline Phosphatase 99 U/L (46-116) Creatine Kinase 144 U/L (39-308) Troponin I Quantitative 0.545 ng/mL (0.000-0.055) 0.785 ng/mL (0.000-0.055) 0.957 ng/mL (0.000-0.055) Total Protein 7.0 g/dL (6.4-8.2) Albumin 3.8 g/dL (3.4-5.0) Albumin/Globulin Ratio 1.2 (1.0-1.7) Heparin Anti-Xa Act, Unfractionated 0.18 IU/mL (0.30-0.70) 0.20 IU/mL (0.30-0.70) Nasal Screen MRSA (PCR) Positive (Negative) Laboratory Tests Test 02/24/17 11:25 Heparin Anti-Xa Act, Unfractionated 0.20 IU/mL (0.30-0.70) Troponin I Quantitative 0.957 ng/mL (0.000-0.055) Brief Hospital Course Mr. Osborne is a 51 old [sex] who presented with [ ]51 y.o male with hx CAD, CABG and even v fib arrest in the past? comes in with intermittent left sided CP involving left arm, some gen weakness, soa, Did bump trops at ER and some reciprocal EKG Changes (I have personally reviewed), STarted on heparin gtt , still having some chest pains, lasts 5-15 mins, maybe temp relief with IV morphine, PLanned for C later PM. Trops 0.5 and 0.7. NO identifiable precipitating factor. Still smokes and drinks occasionally, first heart attack he claims when he was 23 y.o COURSE: heparin gtt was started bec of clinical hx and slight bum in trop,. LHC done, no stents needed, Indwelling past stents appreciable, Being dcd on PO plavix, Dw COm pliance emphaszied.'Lots of qs prior to dc .SP. Does not see cards as OP. Told him he can ff up [facility] or [facility] for free with cardiology, Initially was apprehensive about leaving He understands. cousnelled > 50% time dispO:home time 32 mins Discharge Information Condition at Discharge: Improved, Stable Disposition/Orders: D/C to Home Scheduled Amiodarone Hcl (Amiodarone Hcl), 400 MG PO DAILY Aspirin (Aspirin), 1 TAB PO DAILY, (Reported) Atorvastatin Calcium (Atorvastatin Calcium), 20 MG PO QHS Clopidogrel Bisulfate (Plavix), 1 TAB PO DAILY Lisinopril (Lisinopril), 10 MG PO DAILY Metoprolol Tartrate (Metoprolol Tartrate), 25 MG PO BID JOLANTA LAGOS MD Feb 25, 2017 11:07
--- NOTE | 2017-02-25 12:06 | PDOC ---
CARDIO Progress Notes Date and Time Date of Service 02/25/17 Time of Evaluation 1015 Subjective Subjective: No Chest Pain, No shortness of breath Vitals Vitals Vital Signs Date Time Temp Pulse Resp B/P (MAP) Pulse Ox O2 Delivery O2 Flow Rate FiO2 02/25/17 11:00 98.0 70 19 151/80 (103) 95 Room Air 98.0 02/24/17 14:38 2.0 Weight Weight [ ] Input and Output Intake and Output Intake and Output 02/25/17 07:00 Intake Total 2905 ml Output Total 1900 ml Balance 1005 ml Intake Oral 1380 ml IV Total 1000 ml Other 525 ml Output Urine Total 1900 ml Physical Exam HEENT: Neck Supple W Full Motion Chest: Symmetric LUNGS: Clear to Auscultation Heart: S1S2, RRR, no thrills, no rubs, no gallops Abdomen: Soft N/T, Other (right groin arteriotomy site soft, clean, and dry with neurovascular status intact. No erythema, ecchymosis, or hematoma present.) Extremities: No Edema Neurology: alert, oriented, follow commands Assessment Assessment 1. NSTEMI: cath revealed 4/4 patent graft and patent LM stent. Stop heparin. Otherwise, continue present therapy. May discharge from a CV standpoint and f/u in our office with Dr. Britt in 4-6 weeks. 2. CAD s/p CABG and LM stent. Continue secondary prevention measures including DAPT with ASA and Plavix. 3. Chronic systolic CHF with ICM: LVEF 40%; compensated. continue optimization therapy 4. H/o VT arrest; on Amiodarone 5. Hypertension; controlled 6. Hyperlipidemia; resume statin 7. Noncompliance; reinforced importance of treatment adherence 8. Tobaccoism: cessation discussed and encouraged ZIYAD ALMARAZ APRN Feb 25, 2017 12:06
== END 2017-02-25 13:15 | disposition home or self-care (01) | DRG 281 ==
LOC: ER 21:59 → 2 SOUTH 22:45
PROVIDERS: ADMIT Internal Medicine; ATTEND Internal Medicine
PROC: 4A023N7 Measurement of Cardiac Sampling and Pressure, Left Heart, Percutaneous Approach (ICD-10-PCS; principal; 2017-02-25)
PROC: B2111ZZ Fluoroscopy of Multiple Coronary Arteries using Low Osmolar Contrast (ICD-10-PCS; 2017-02-25)
PROC: B2151ZZ Fluoroscopy of Left Heart using Low Osmolar Contrast (ICD-10-PCS; 2017-02-25)
DX: I21.4 Non-ST elevation (NSTEMI) myocardial infarction (principal); I50.22 Chronic systolic (congestive) heart failure; I11.0 Hypertensive heart disease with heart failure; Z95.1 Presence of aortocoronary bypass graft; I25.10 Atherosclerotic heart disease of native coronary artery without angina pectoris; E78.5 Hyperlipidemia, unspecified; J45.909 Unspecified asthma, uncomplicated; F17.210 Nicotine dependence, cigarettes, uncomplicated; I25.5 Ischemic cardiomyopathy; E78.00 Pure hypercholesterolemia, unspecified; F41.9 Anxiety disorder, unspecified; M19.90 Unspecified osteoarthritis, unspecified site; I25.2 Old myocardial infarction; Z95.5 Presence of coronary angioplasty implant and graft; Z80.9 Family history of malignant neoplasm, unspecified; Z91.19 Patient's noncompliance with other medical treatment and regimen; Z79.82 Long term (current) use of aspirin
CPT/HCPCS: 36415; 71010; 80048; 80053; 82550; 84484; 85025; 85520; 87641; 93005; 93459; 96365; 96368; 96375; 99406; C1769; C1771; C1892; G0269; J1644; J2060; J2250; J2405; J3010; J3490; J7030; Q9967; S0028; 99285-25; J2001

== ENCOUNTER 2017-09-11 21:50 | Inpatient (IN) | payer OTHER ==
[2017-09-11 22:11] LABS: ADD MAN DIFF? NO
[2017-09-11 22:13] LABS: BASO # 0.1 x10^3/uL (0.0-0.2); BASO % 1 % (0-3); EOS # 0.5 x10^3/uL (0.0-0.7); EOS % 4 % (0-3); HEMATOCRIT 45.5 % (39.0-53.0); LYMPH # 3.7 x10^3/uL (1.0-4.8); LYMPH % 28 % (24-48); MEAN CORPUSCULAR HEMOGLOBIN 32 pg (25-35); MEAN CORPUSCULAR HGB CONC 35 g/dL (31-37); MEAN CORPUSCULAR VOLUME 92 fL (79-100); MONO # 0.9 x10^3/uL (0.0-1.1); MONO % 7 % (0-9); NEUT # 7.8 x10^3uL (1.8-7.7); NEUT % 60 % (31-73); PLATELET COUNT 187 x10^3/uL (140-400); RED BLOOD COUNT 4.95 x10^6/uL (4.30-5.70); RED CELL DISTRIBUTION WIDTH 13.3 % (11.5-14.5)
[2017-09-11] MEDS: ONDANSETRON PF 4 MG/2 ML VIAL. IV (22:20)
[2017-09-11] MEDS: fentaNYL PF VIAL 100 MCG/2 ML VIAL IV (22:21)
[2017-09-11 22:24] LABS: D-DIMER 0.36 ug/mlFEU (0.00-0.50)
[2017-09-11 22:24] LABS: ANION GAP 9 (6-14); BLOOD UREA NITROGEN 30 mg/dL (8-26); BUN/CREATININE RATIO 21 (6-20); CALCIUM 8.8 mg/dL (8.5-10.1); CARBON DIOXIDE 26 mmol/L (21-32); CHLORIDE 109 mmol/L (98-107); CREATININE 1.4 mg/dL (0.7-1.3); GLUCOSE 103 mg/dL (70-99); SODIUM 144 mmol/L (136-145)
[2017-09-11] MEDS: NITROGLYCERIN PREMIX 250 ML IV (22:26)
[2017-09-11 22:31] LABS: ALBUMIN 3.8 g/dL (3.4-5.0); ALBUMIN/GLOBULIN RATIO 1.5 (1.0-1.7); ALK PHOS 103 U/L (46-116); ALT (SGPT) 39 U/L (16-63); AST (SGOT) 29 U/L (15-37); TOTAL BILIRUBIN 0.3 mg/dL (0.2-1.0); TOTAL PROTEIN 6.4 g/dL (6.4-8.2)
[2017-09-11 22:37] LABS: TROPONINI 1.308 ng/mL (0.000-0.055)
[2017-09-11] MEDS ORDERED: ONDANSETRON PF 4 MG/2 ML VIAL. IV (23:15)
[2017-09-11 23:24] LABS: PARTIAL THROMBOPLASTIN TIME 30 SEC (24-38); PROTHROMBIN TIME PATIENT 12.5 SEC (11.7-14.0)
[2017-09-11] MEDS: HEPARIN for IV BOLUS 10,000 UNIT/10 ML VIAL. IV (23:31)
[2017-09-11] MEDS: HEPARIN 25,000UTS/500ML PREMIX 500 ML IV (23:43)
[2017-09-12] MEDS: fentaNYL PF VIAL 100 MCG/2 ML VIAL IV ×6 (01:03→20:22)
[2017-09-12 02:24] LABS: TROPONINI 1.679 ng/mL (0.000-0.055)
[2017-09-12 06:01] LABS: ADD MAN DIFF? NO
[2017-09-12 06:16] LABS: BASO # 0.1 x10^3/uL (0.0-0.2); BASO % 1 % (0-3); EOS # 0.5 x10^3/uL (0.0-0.7); EOS % 4 % (0-3); HEMATOCRIT 44.8 % (39.0-53.0); HEMOGLOBIN 15.4 g/dL (13.0-17.5); LYMPH # 3.1 x10^3/uL (1.0-4.8); LYMPH % 26 % (24-48); MEAN CORPUSCULAR HEMOGLOBIN 32 pg (25-35); MEAN CORPUSCULAR HGB CONC 34 g/dL (31-37); MEAN CORPUSCULAR VOLUME 93 fL (79-100); MONO % 9 % (0-9); NEUT # 7.1 x10^3uL (1.8-7.7); NEUT % 60 % (31-73); PLATELET COUNT 179 x10^3/uL (140-400); RED BLOOD COUNT 4.83 x10^6/uL (4.30-5.70); RED CELL DISTRIBUTION WIDTH 13.6 % (11.5-14.5); WHITE BLOOD COUNT 11.8 x10^3/uL (4.0-11.0)
[2017-09-12 06:25] LABS: UNFRACTIONATED HEPARIN TESTING 0.14 IU/mL (0.30-0.70)
[2017-09-12] MEDS: HEPARIN for IV BOLUS 10,000 UNIT/10 ML VIAL. IV (06:40)
[2017-09-12 07:12] LABS: ANION GAP 9 (6-14); BLOOD UREA NITROGEN 32 mg/dL (8-26); CALCIUM 8.6 mg/dL (8.5-10.1); CARBON DIOXIDE 24 mmol/L (21-32); CHLORIDE 111 mmol/L (98-107); CREATININE 1.4 mg/dL (0.7-1.3); GLUCOSE 113 mg/dL (70-99); POTASSIUM 4.3 mmol/L (3.5-5.1); SODIUM 144 mmol/L (136-145)
[2017-09-12] MEDS: ACETAMINOPHEN 325 MG TABLET. PO (08:34)
[2017-09-12 09:18] LABS: TROPONINI 2.443 ng/mL (0.000-0.055)
[2017-09-12] MEDS: ASPIRIN CHEWABLE 81 MG TABLET. PO (10:35)
[2017-09-12] MEDS: CLOPIDOGREL BISULFATE 75 MG TABLET PO (10:35)
[2017-09-12] MEDS: AMIODARONE HCL 200 MG TABLET. PO (10:36)
[2017-09-12] MEDS: LISINOPRIL 10 MG TABLET PO (10:36)
[2017-09-12] MEDS: METOPROLOL TART IMMED RELEASE 25 MG TABLET. PO ×2 (10:36→20:23)
[2017-09-12 12:21] LABS: UNFRACTIONATED HEPARIN TESTING 0.32 IU/mL (0.30-0.70)
[2017-09-12 16:18] LABS: MRSA BY PCR Positive (Negative)
[2017-09-12 19:33] LABS: UNFRACTIONATED HEPARIN TESTING 0.27 IU/mL (0.30-0.70)
[2017-09-12] MEDS: ATORVASTATIN CALCIUM 20 MG TABLET PO (20:23)
[2017-09-12] MEDS: ALPRAZolam 0.25 MG TABLET PO (22:00)
[2017-09-13 04:30] LABS: ANION GAP 5 (6-14); BLOOD UREA NITROGEN 26 mg/dL (8-26); CALCIUM 8.4 mg/dL (8.5-10.1); CARBON DIOXIDE 28 mmol/L (21-32); CHLORIDE 106 mmol/L (98-107); CHOLESTEROL 168 mg/dL (0-200); CREATININE 1.3 mg/dL (0.7-1.3); GFR 57.7; GLUCOSE 100 mg/dL (70-99); HDLC 34 mg/dL (40-60); LDLC 97 mg/dL (0-100); NON-HDL CHOLESTEROL 134 mg/dL (0-129); POTASSIUM 4.1 mmol/L (3.5-5.1); SODIUM 139 mmol/L (136-145); TRIGLYCERIDES 184 mg/dL (0-150); VLDLC 37 mg/dL (0-40)
[2017-09-13 04:31] LABS: TROPONINI 2.659 ng/mL (0.000-0.055)
[2017-09-13 04:35] LABS: CHOLESTEROL/HDL RATIO 4.9
[2017-09-13 04:41] LABS: UNFRACTIONATED HEPARIN TESTING 0.41 IU/mL (0.30-0.70)
[2017-09-13] MEDS: ALPRAZolam 0.25 MG TABLET PO ×2 (05:55→21:12)
[2017-09-13] MEDS: MORPHINE SULFATE 4 MG/ML DISP.SYRIN. IV ×4 (06:58→21:13)
[2017-09-13] MEDS: REGADENOSON 0.4 MG/5 ML DISP.SYRIN. IV (09:15)
[2017-09-13 09:16] LABS: UNFRACTIONATED HEPARIN TESTING 0.43 IU/mL (0.30-0.70)
[2017-09-13] MEDS ORDERED: REGADENOSON 0.4 MG/5 ML DISP.SYRIN. IV (10:00)
[2017-09-13] MEDS: CLOPIDOGREL BISULFATE 75 MG TABLET PO (10:49)
[2017-09-13] MEDS: METOPROLOL TART IMMED RELEASE 25 MG TABLET. PO ×2 (10:49→21:13)
[2017-09-13] MEDS: ASPIRIN CHEWABLE 81 MG TABLET. PO (10:49)
[2017-09-13] MEDS: LISINOPRIL 10 MG TABLET PO (10:49)
[2017-09-13] MEDS: AMIODARONE HCL 200 MG TABLET. PO (10:49)
[2017-09-13] MEDS: ANTI-COAG MONITOR BY PHARMACY. MC (13:49)
[2017-09-13] MEDS: ONDANSETRON PF 4 MG/2 ML VIAL. IV (17:40)
[2017-09-13] MEDS: ATORVASTATIN CALCIUM 20 MG TABLET PO (21:12)
[2017-09-14] MEDS: MORPHINE SULFATE 4 MG/ML DISP.SYRIN. IV ×4 (01:55→19:07)
[2017-09-14] MEDS: HEPARIN 25,000UTS/500ML PREMIX 500 ML IV ×2 (02:42→19:06)
[2017-09-14 03:58] LABS: HEMATOCRIT 39.8 % (39.0-53.0); HEMOGLOBIN 13.9 g/dL (13.0-17.5); MEAN CORPUSCULAR HEMOGLOBIN 32 pg (25-35); MEAN CORPUSCULAR HGB CONC 35 g/dL (31-37); MEAN CORPUSCULAR VOLUME 93 fL (79-100); PLATELET COUNT 154 x10^3/uL (140-400); RED BLOOD COUNT 4.29 x10^6/uL (4.30-5.70); RED CELL DISTRIBUTION WIDTH 13.4 % (11.5-14.5); WHITE BLOOD COUNT 11.6 x10^3/uL (4.0-11.0)
[2017-09-14 04:17] LABS: UNFRACTIONATED HEPARIN TESTING 0.33 IU/mL (0.30-0.70)
[2017-09-14 04:47] LABS: ANION GAP 8 (6-14); BLOOD UREA NITROGEN 23 mg/dL (8-26); CALCIUM 8.7 mg/dL (8.5-10.1); CARBON DIOXIDE 29 mmol/L (21-32); CHLORIDE 106 mmol/L (98-107); CREATININE 1.3 mg/dL (0.7-1.3); GFR 57.7; GLUCOSE 118 mg/dL (70-99); POTASSIUM 4.1 mmol/L (3.5-5.1); SODIUM 143 mmol/L (136-145)
[2017-09-14] MEDS: IV NORMAL SALINE 1000ML BAG 1,000 ML IV ×3 (07:06→19:05)
[2017-09-14] MEDS: CLOPIDOGREL BISULFATE 75 MG TABLET PO ×3 (07:06→14:00)
[2017-09-14] MEDS: LISINOPRIL 10 MG TABLET PO (09:00)
[2017-09-14] MEDS: AMIODARONE HCL 200 MG TABLET. PO (09:58)
[2017-09-14] MEDS: ASPIRIN CHEWABLE 81 MG TABLET. PO (09:59)
[2017-09-14] MEDS: METOPROLOL TART IMMED RELEASE 25 MG TABLET. PO ×2 (10:00→20:57)
[2017-09-14] MEDS: ONDANSETRON PF 4 MG/2 ML VIAL. IV ×2 (10:00→19:08)
[2017-09-14] MEDS ORDERED: fentaNYL PF VIAL 100 MCG/2 ML VIAL (11:02)
[2017-09-14] MEDS ORDERED: MIDAZOLAM HCL/PF 2 MG/2 ML VIAL. ×2 (11:02→12:06)
[2017-09-14] MEDS: LIDOCAINE 2% 20 ML VIAL. IJ (11:30)
[2017-09-14] MEDS: MIDAZOLAM HCL/PF 2 MG/2 ML VIAL. IV (11:30)
[2017-09-14] MEDS: IODIXANOL 320 MG/ML 100 ML VIAL. IART (11:30)
[2017-09-14] MEDS: fentaNYL PF VIAL 100 MCG/2 ML VIAL IV (11:30)
[2017-09-14] MEDS ORDERED: HEPARIN for IV BOLUS 10,000 UNIT/10 ML VIAL. (12:04)
[2017-09-14] MEDS ORDERED: IOHEXOL 300 MG/ML 100ML VIAL. ×2 (12:08→12:37)
[2017-09-14] MEDS ORDERED: BIVALIRUDIN 250 MG VIAL. IV (12:10)
[2017-09-14] MEDS ORDERED: NITROGLYCERIN OINT 1 GM PACKET. (12:50)
[2017-09-14] MEDS ORDERED: NITROGLYCERIN SUBLINGUAL 0.4 MG BOTTLE OF 25. SL (13:00)
[2017-09-14] MEDS ORDERED: ATROPINE 0.5 MG/5 ML DISP.SYRIN. IV (13:00)
[2017-09-14] MEDS ORDERED: AMIODARONE 150 MG in IV DEXTROSE 5% 100 ML IV (13:00)
[2017-09-14] MEDS ORDERED: ACETAMINOPHEN 325 MG TABLET. PO (13:00)
[2017-09-14] MEDS ORDERED: fentaNYL PF VIAL 100 MCG/2 ML VIAL IV (13:00)
[2017-09-14] MEDS ORDERED: LIDOCAINE 2% 100 MG/5 ML SYRINGE. IV (13:00)
[2017-09-14] MEDS ORDERED: 0.9 % SODIUM CHLORIDE 10 ML DISP.SYRIN. IV (13:00)
[2017-09-14 13:03] LABS: TROPONINI 2.066 ng/mL (0.000-0.055)
[2017-09-14] MEDS ORDERED: ASPIRIN 325 MG TABLET (13:07)
[2017-09-14] MEDS ORDERED: CLOPIDOGREL BISULFATE 75 MG TABLET (13:07)
[2017-09-14] MEDS: BIVALIRUDIN 250 MG VIAL. IV (13:15)
[2017-09-14] MEDS: ASPIRIN 325 MG TABLET PO (13:15)
[2017-09-14] MEDS: NITROGLYCERIN OINT 1 GM PACKET. TP (13:37)
[2017-09-14] MEDS: HEPARIN for IV BOLUS 10,000 UNIT/10 ML VIAL. IV (13:41)
[2017-09-14] MEDS: ANTI-COAG MONITOR BY PHARMACY. MC (15:16)
[2017-09-14] MEDS: oxyCODONE/APAP 5/325 1 TAB TABLET PO (17:36)
[2017-09-14] MEDS: ATORVASTATIN CALCIUM 20 MG TABLET PO (20:57)
[2017-09-14] MEDS: ALPRAZolam 0.25 MG TABLET PO (20:57)
[2017-09-14 23:54] LABS: UNFRACTIONATED HEPARIN TESTING < 0.10 IU/mL (0.30-0.70)
[2017-09-15] MEDS: HEPARIN for IV BOLUS 10,000 UNIT/10 ML VIAL. IV ×2 (00:08→06:41)
[2017-09-15] MEDS: oxyCODONE/APAP 5/325 1 TAB TABLET PO (00:19)
[2017-09-15 06:04] LABS: ADD MAN DIFF? NO
[2017-09-15 06:08] LABS: BASO # 0.1 x10^3/uL (0.0-0.2); BASO % 1 % (0-3); EOS # 0.2 x10^3/uL (0.0-0.7); EOS % 1 % (0-3); HEMATOCRIT 39.3 % (39.0-53.0); HEMOGLOBIN 13.6 g/dL (13.0-17.5); LYMPH # 2.4 x10^3/uL (1.0-4.8); LYMPH % 19 % (24-48); MEAN CORPUSCULAR HEMOGLOBIN 32 pg (25-35); MEAN CORPUSCULAR HGB CONC 35 g/dL (31-37); MEAN CORPUSCULAR VOLUME 92 fL (79-100); MONO % 8 % (0-9); NEUT # 8.8 x10^3uL (1.8-7.7); NEUT % 71 % (31-73); PLATELET COUNT 151 x10^3/uL (140-400); RED BLOOD COUNT 4.27 x10^6/uL (4.30-5.70); RED CELL DISTRIBUTION WIDTH 13.2 % (11.5-14.5); WHITE BLOOD COUNT 12.4 x10^3/uL (4.0-11.0)
[2017-09-15 06:17] LABS: ANION GAP 8 (6-14); BLOOD UREA NITROGEN 23 mg/dL (8-26); CALCIUM 8.2 mg/dL (8.5-10.1); CARBON DIOXIDE 27 mmol/L (21-32); CHLORIDE 106 mmol/L (98-107); CREATININE 1.3 mg/dL (0.7-1.3); GFR 57.7; GLUCOSE 106 mg/dL (70-99); POTASSIUM 4.2 mmol/L (3.5-5.1); SODIUM 141 mmol/L (136-145)
[2017-09-15 06:19] LABS: UNFRACTIONATED HEPARIN TESTING 0.13 IU/mL (0.30-0.70)
[2017-09-15] MEDS: ANTI-COAG MONITOR BY PHARMACY. MC (08:20)
[2017-09-15] MEDS: ASPIRIN ENTERIC COATED 325 MG TABLET.DR. PO (08:30)
[2017-09-15] MEDS: ONDANSETRON PF 4 MG/2 ML VIAL. IV (08:30)
[2017-09-15] MEDS: LISINOPRIL 10 MG TABLET PO (08:31)
[2017-09-15] MEDS: METOPROLOL TART IMMED RELEASE 25 MG TABLET. PO ×2 (08:31→20:18)
[2017-09-15] MEDS: AMIODARONE HCL 200 MG TABLET. PO (08:31)
[2017-09-15] MEDS: FLU VACC QS2017-18 (36MOS+)/PF 0.5 ML SYRINGE. VAX IM (10:00)
[2017-09-15 13:19] LABS: UNFRACTIONATED HEPARIN TESTING 0.29 IU/mL (0.30-0.70)
[2017-09-15] MEDS: CLOPIDOGREL BISULFATE 75 MG TABLET PO (13:31)
[2017-09-15] MEDS: HEPARIN 25,000UTS/500ML PREMIX 500 ML IV (13:35)
[2017-09-15] MEDS: ALPRAZolam 0.25 MG TABLET PO (16:17)
[2017-09-15 19:49] LABS: UNFRACTIONATED HEPARIN TESTING 0.23 IU/mL (0.30-0.70)
[2017-09-15] MEDS: AZITHROMYCIN 250 MG TABLET. PO (20:18)
[2017-09-15] MEDS: ATORVASTATIN CALCIUM 20 MG TABLET PO (20:18)
[2017-09-15] MEDS: MAGNESIUM CITRATE 296 ML SOLUTION. PO (20:21)
[2017-09-16] MEDS: HEPARIN 25,000UTS/500ML PREMIX 500 ML IV (01:46)
[2017-09-16] MEDS: ALPRAZolam 0.25 MG TABLET PO ×2 (02:56→08:25)
[2017-09-16 04:10] LABS: ADD MAN DIFF? NO
[2017-09-16 04:18] LABS: BASO # 0.1 x10^3/uL (0.0-0.2); BASO % 1 % (0-3); EOS # 0.3 x10^3/uL (0.0-0.7); EOS % 2 % (0-3); HEMOGLOBIN 13.4 g/dL (13.0-17.5); LYMPH # 2.9 x10^3/uL (1.0-4.8); LYMPH % 25 % (24-48); MEAN CORPUSCULAR HEMOGLOBIN 32 pg (25-35); MEAN CORPUSCULAR HGB CONC 35 g/dL (31-37); MEAN CORPUSCULAR VOLUME 92 fL (79-100); MONO # 1.1 x10^3/uL (0.0-1.1); MONO % 9 % (0-9); NEUT # 7.2 x10^3uL (1.8-7.7); NEUT % 62 % (31-73); PLATELET COUNT 130 x10^3/uL (140-400); RED BLOOD COUNT 4.13 x10^6/uL (4.30-5.70); RED CELL DISTRIBUTION WIDTH 13.1 % (11.5-14.5); WHITE BLOOD COUNT 11.5 x10^3/uL (4.0-11.0)
[2017-09-16 04:37] LABS: ANION GAP 5 (6-14); BLOOD UREA NITROGEN 20 mg/dL (8-26); CALCIUM 8.6 mg/dL (8.5-10.1); CARBON DIOXIDE 31 mmol/L (21-32); CHLORIDE 106 mmol/L (98-107); CREATININE 1.3 mg/dL (0.7-1.3); GFR 57.7; GLUCOSE 96 mg/dL (70-99); POTASSIUM 3.5 mmol/L (3.5-5.1); SODIUM 142 mmol/L (136-145)
[2017-09-16 04:43] LABS: UNFRACTIONATED HEPARIN TESTING 0.59 IU/mL (0.30-0.70)
[2017-09-16] MEDS: ANTI-COAG MONITOR BY PHARMACY. MC (08:00)
[2017-09-16] MEDS: AZITHROMYCIN 250 MG TABLET. PO (08:25)
[2017-09-16] MEDS: ASPIRIN ENTERIC COATED 325 MG TABLET.DR. PO (08:25)
[2017-09-16] MEDS: LACTOBACILLUS RHAMNOSUS GG 1 CAPSULE. PO (08:25)
[2017-09-16] MEDS: CLOPIDOGREL BISULFATE 75 MG TABLET PO (08:28)
[2017-09-16] MEDS: METOPROLOL TART IMMED RELEASE 25 MG TABLET. PO (09:00)
[2017-09-16] MEDS: LISINOPRIL 10 MG TABLET PO (09:00)
[2017-09-17] MEDS ORDERED: METOPROLOL SUCC 24HR ER 25 MG TAB.ER.24H. PO (09:00)
[2017-09-17] MEDS ORDERED: LISINOPRIL 5 MG TABLET. PO (09:00)
== END 2017-09-16 14:21 | disposition home or self-care (01) | DRG 249 ==
LOC: 2 SOUTH 09-12 14:30 → ER 21:50 → 1 WEST ICU 23:00
PROC: 02713EZ Dilation of Coronary Artery, Two Arteries with Two Intraluminal Devices, Percutaneous Approach (ICD-10-PCS; principal; 2017-09-14)
PROC: B2181ZZ Fluoroscopy of Left Internal Mammary Bypass Graft using Low Osmolar Contrast (ICD-10-PCS; 2017-09-14)
DX: I21.4 Non-ST elevation (NSTEMI) myocardial infarction (principal); C22.9 Malignant neoplasm of liver, not specified as primary or secondary; I50.40 Unspecified combined systolic (congestive) and diastolic (congestive) heart failure; C34.90 Malignant neoplasm of unspecified part of unspecified bronchus or lung; I13.0 Hypertensive heart and chronic kidney disease with heart failure and stage 1 through stage 4 chronic kidney disease, or unspecified chronic kidney disease; N18.3 Chronic kidney disease, stage 3 (moderate); J44.9 Chronic obstructive pulmonary disease, unspecified; F41.9 Anxiety disorder, unspecified; E78.5 Hyperlipidemia, unspecified; M19.90 Unspecified osteoarthritis, unspecified site; F17.210 Nicotine dependence, cigarettes, uncomplicated; I25.10 Atherosclerotic heart disease of native coronary artery without angina pectoris; I25.2 Old myocardial infarction; Z82.49 Family history of ischemic heart disease and other diseases of the circulatory system; Z91.19 Patient's noncompliance with other medical treatment and regimen; Z95.1 Presence of aortocoronary bypass graft; Z98.61 Coronary angioplasty status
CPT/HCPCS: 36415; 71046; 72148; 80048; 80053; 80061; 84484; 85025; 85027; 85379; 85520; 85610; 85730; 87641; 92937; 92938; 93005; 93306; 93459; 93925; 93926; 96365; 96366; 96368; 96375; 96376; 97161-GP; 97165-GO; 99152; 99153; 99285; 99285-25; C1725; C1769; C1877; C1887; C1892; G0269; J0583; J1644; J2250; J2270; J2405; J2785; J3010; J3490; J7030; Q0144

== ENCOUNTER → 2018-06-04 | Outpatient (CLI) | payer OTHER ==
[2017-09-16 10:40] VITALS: BP 142/85
[~2018-06-04] MED LIST changes: -AMIO200T2 PO; +AMIO200T4 PO; +ASPI325T11 PO; +AZIT250T6 PO; +CLOP75TA57 PO; +LISI-338 PO; +METO-239 PO
--- NOTE | 2018-06-06 13:17 | CARD ---
MR#: [id number] Date of Study: 06/04/2018 Ordering Physician: SHELBI MCLEAN, Referring Physician: SHELBI MCLEAN, Tech: Kelsi Clemente SILVANO APPROVED REPORT EXAM: Two-dimensional and M-mode echocardiogram with Doppler and color Doppler. Other Information Quality : Technically LimitedHR: 62bpm Rhythm : NSRTechnically limited study due to body habitus and smoking. INDICATION Cardiomyopathy RISK FACTORS Hypertension Obesity Smoking 2D DIMENSIONS RVDd3.4 (2.9-3.5cm)Left Atrium(2D)3.9 (1.6-4.0cm) IVSd0.9 (0.7-1.1cm)Aortic Root(2D)3.7 (2.0-3.7cm) LVDd6.0 (3.9-5.9cm)LVOT Diameter2.2 (1.8-2.4cm) PWd1.2 (0.7-1.1cm)LVDs4.3 (2.5-4.0cm) FS (%) 29.8 %SV101.0 ml LVEF(%)54.0 (>50%) M-Mode DIMENSIONS RVDd3.94 (2.1-3.2cm)Left Atrium(MM)4.47 (2.5-4.0cm) IVSd1.26 (0.7-1.1cm)Aortic Root3.73 (2.2-3.7cm) LVDd5.79 (4.0-5.6cm)PWd1.22 (0.7-1.1cm) IVSs3.82 cm Aortic Valve AoV Peak Faisal.150.8cm/sAoV VTI35.9cm AO Peak GR.9.1mmHgLVOT Peak Faisal.90.0cm/s AO Mean GR.5mmHgAVA (VMAX)2.24cm2 ROLANDA (VTI)2.40cm2 Mitral Valve MV E Hpmkppwz964.6cm/sMV DECEL PSGT955vo MV A Zailzcwq27.2cm/sE/A Ratio1.4 MV A Cqrtiofu358rr Pulmonary Valve PV Peak Hiyegcvz285.5cm/s Tricuspid Valve TR P. Grpawjsf877sa/sRAP BHTBRDIE2ziBf TR Peak Gr.56vhZcFBWC95ayEq Pulmonary Vein S1 Nsiwznei82.1cm/sD2 Pqzrkzxn09.0cm/s PVa nqnzeosd133ioeo LEFT VENTRICLE The Left Ventricle is mildly dilated. There is normal left ventricular wall thickness. The systolic f unction is mildly impaired. The Ejection Fraction is 50%. There is global hypokinesis of the left delma tricle. Septal motion suggestive of conduction defect. Transmitral Doppler flow pattern is Grade II-p seudonormal filling dynamics. RIGHT VENTRICLE The right ventricle is normal size. There is normal right ventricular wall thickness. The right ventr icular systolic function is normal. ATRIA The left atrium is mildly dilated. The right atrium is mildly dilated. The interatrial septum is inta ct with no evidence for an atrial septal defect or patent foramen ovale as noted on 2-D or Doppler im aging. AORTIC VALVE The aortic valve is normal in structure and function. The aortic valve is trileaflet. Doppler and Col or Flow revealed no significant aortic regurgitation. There is no significant aortic valvular stenosi s. MITRAL VALVE The mitral valve is normal in structure and function. There is no evidence of mitral valve prolapse. There is no mitral valve stenosis. Doppler and Color-flow revealed trace mitral regurgitation. TRICUSPID VALVE The tricuspid valve is normal in structure and function. Doppler and Color Flow revealed trace tricus pid regurgitation. The PA pressure was estimated at 28 mmHg. There is no tricuspid valve prolapse or vegetation. There is no tricuspid valve stenosis. PULMONIC VALVE Doppler and Color Flow revealed no pulmonic valvular regurgitation. There is no pulmonic valvular fransisco nosis. GREAT VESSELS The aortic root is normal in size. The ascending aorta is normal in size. The IVC is normal in size a nd collapses >50% with inspiration. PERICARDIAL EFFUSION There is no evidence of significant pericardial effusion. Prominent fat pad. Critical Notification Critical Value: No <Conclusion> The systolic function is mildly impaired. The Ejection Fraction is 50%. The Left Ventricle is mildly dilated. There is global hypokinesis of the left ventricle. Signed by : Santiago Jordan, Electronically Approved : 06/06/2018 13:15:52
== END | disposition home or self-care (01) ==
LOC: ECHO 14:19
PROVIDERS: ATTEND Internal Medicine Cardiovascular Disease
DX: I42.9 Cardiomyopathy, unspecified (principal); I10 Essential (primary) hypertension; E66.9 Obesity, unspecified; F17.200 Nicotine dependence, unspecified, uncomplicated
CPT/HCPCS: 93306

== ENCOUNTER → 2018-06-18 | Outpatient (CLI) | payer OTHER ==
[2017-09-16 10:40] VITALS: BP 142/85
--- NOTE | 2018-06-21 14:42 | RAD ---
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 Lungs diminished in the bases. Patient has a coarse cough. Stress Symptoms Fatigue,Dyspnea POST EXERCISE Reason for Termination: Fatigue, Reached target heart rate Target HR: Yes Max HR: 152 bpm 107% of Maximum Predicted HR: 141 bpm Exercise duration: 4:21 min:sec, 2 Stage Exercise capacity: 10.0METs Max Blood Pressure: 198/87mmHg Blood Pressure response to exercise: Normal blood pressure response during stress. Heart Rate response to exercise: WNL Chest Pain: No. Arrhythmia: No. ST Change: Yes. slight ST elevation in leads V2-V4 during exercise which returned to baseline by end of study INTERPRETATION Stress EKG Conclusion: Baseline EKG showed sinus rhythm. No ischemic changes at peak stress. No arr hythmias. Conclusion 1. Treadmill exercise stress electrocardiogram did not show any diagnostic evidence of ischemia. Signed by : Clif Paredesally Approved : 06/21/2018 14:40:35
== END | disposition home or self-care (01) ==
LOC: NM 14:31
PROVIDERS: ATTEND Internal Medicine Cardiovascular Disease
DX: I25.10 Atherosclerotic heart disease of native coronary artery without angina pectoris (principal); I10 Essential (primary) hypertension; I25.2 Old myocardial infarction; F17.210 Nicotine dependence, cigarettes, uncomplicated
CPT/HCPCS: 93017

== ENCOUNTER 2018-09-20 20:57 | Inpatient (IN) | payer OTHER ==
[~2018-09-20] VITALS: Ht 175.3 cm; Wt 117.9 kg
[2018-09-20] MEDS ORDERED: IPRATRPIUM/ALBUTEROL 0.5/2.5MG 3 ML NEBU. NEB ONE (21:15)
[2018-09-20 22:00] LABS: BASO # 0.1 x10^3/uL (0.0-0.2); BASO % 1 % (0-3); EOS # 0.3 x10^3/uL (0.0-0.7); EOS % 3 % (0-3); HEMATOCRIT 43.5 % (39.0-53.0); HEMOGLOBIN 15.2 g/dL (13.0-17.5); LYMPH # 1.4 x10^3/uL (1.0-4.8); LYMPH % 12 % (24-48); MEAN CORPUSCULAR HEMOGLOBIN 32 pg (25-35); MEAN CORPUSCULAR HGB CONC 35 g/dL (31-37); MEAN CORPUSCULAR VOLUME 92 fL (79-100); MONO % 9 % (0-9); NEUT # 8.3 x10^3uL (1.8-7.7); NEUT % 75 % (31-73); PLATELET COUNT 168 x10^3/uL (140-400); RED BLOOD COUNT 4.74 x10^6/uL (4.30-5.70); RED CELL DISTRIBUTION WIDTH 13.4 % (11.5-14.5); WHITE BLOOD COUNT 11.1 x10^3/uL (4.0-11.0)
[2018-09-20] MEDS ORDERED: methylPREDNISolone SOD SUCC PF 125 MG/2 ML VIAL. IV ONE (22:00)
--- NOTE | 2018-09-20 22:10 | PHYS DOC ---
Past Medical History Past Medical History: Asthma, Bronchitis, CAD, COPD, Hypertension, ND Additional Past Medical Histor: 19 heart attacks Past Surgical History: Angioplasty, Appendectomy, Coronary Bypass Surgery Additional Past Surgical Histo: Left shoulder replacementx2 Alcohol Use: Occasionally Drug Use: None Adult General Chief Complaint Chief Complaint: SHORTNESS OF BREATH HPI HPI Patient is a 52 yo male w/ significant cardiac hx who presents with compliant of one day of worsening shortness of breath. Patient reports he noticed this morning he was having a nonproductive cough, minimal nasal discharge, and shortness of breath. Patient reports that the last time he felt like this he had pneumonia, which was several years prior. He reports he has had "20 heart attacks", "I've 14 times", "10 stents with 2 replaced". He reports his engine dispatcher is Balwinder, and he is taking all of his medications as prescribed, including clopidogrel. 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 He denies hx of blood clots. He denies having a flu shot this year. He also denies having any sick contacts or recent international travel. Patient denies drug use, admits to occasional alcohol use, and is a smoker who "quit smoking yesterday". Review of Systems Review of Systems Constitutional: Denies fever or chills [] Eyes: Denies change in visual acuity, redness, or eye pain [] HENT: Denies nasal congestion or sore throat, Admits runny nose. Denies sore throat. Respiratory: Admits nonproductive cough. Admits shortness of breath. Cardiovascular: Admits chest pain with deep breath. GI: Denies abdominal pain, nausea, vomiting, bloody stools or diarrhea [] : Denies dysuria or hematuria [] Musculoskeletal: Denies back pain or joint pain [] Integument: Denies rash or skin lesions [] All other systems were reviewed and found to be within normal limits, except as documented in this note. Current Medications Current Medications Current Medications Medications (Trade) Dose Ordered Sig/[place] Start Time Stop Time Status Last Admin Dose Admin Albuterol/ Ipratropium (Duoneb) 3 ml 1X ONCE 09/20/18 21:15 09/20/18 21:16 DC 09/20/18 21:16 3 ML Ceftriaxone Sodium (Rocephin) 1 gm 1X ONCE 09/20/18 22:30 09/20/18 22:31 DC 09/20/18 22:43 1 GM Doxycycline Hyclate 100 mg/ Dextrose 100 ml @ 50 mls/hr 1X ONCE 09/20/18 22:30 09/21/18 00:29 DC 09/20/18 22:46 50 MLS/HR Info (CONTRAST GIVEN -- Rx MONITORING) 1 each PRN DAILY PRN 09/20/18 22:30 09/22/18 22:29 Iohexol (Omnipaque 350 Mg/ml) 100 ml 1X ONCE 09/20/18 23:00 09/20/18 23:01 DC 09/20/18 23:08 75 ML Methylprednisolone Sodium Succinate (SOLU-Medrol 125MG VIAL) 125 mg 1X ONCE 09/20/18 22:00 09/20/18 22:01 DC 09/20/18 22:11 125 MG Allergies Allergies Allergies Coded Allergies Type Severity Reaction Last Updated Verified I S O L A T I O N *CONTACT* Allergy Unknown 10/03/16 Yes No Known Medication Allergies Allergy Unknown 10/03/16 Yes Physical Exam Physical Exam Constitutional: Well developed, well nourished, no acute distress HENT: Normocephalic, atraumatic, bilateral external ears normal, oropharynx moist, no oral exudates, nose normal. [] Eyes: PERRLA, EOMI Neck: Normal range of motion, no stridor Cardiovascular:Heart rate regular rhythm, no murmur/ Lungs & Thorax: Bilateral breath sounds present; scattered wheezes throughout all lung mora; well healed, vertical midline scar Abdomen: Abdomen soft, no tenderness, no masses, no pulsatile masses. [] Skin: Warm, dry, no erythema, no rash. [] Extremities: No tenderness, no cyanosis, no clubbing, ROM intact, no edema, no cords Neurologic: Alert and oriented X 3, normal motor function, normal sensory function, no focal deficits noted. [] Psychologic: Affect normal, judgement normal, mood normal. [] Current Patient Data Vital Signs Vital Signs Date Time Temp Pulse Resp B/P (MAP) Pulse Ox O2 Delivery O2 Flow Rate FiO2 09/20/18 21:17 93 Room Air 09/20/18 21:00 98.4 113 28 151/79 (103) 98.4 Lab Values Laboratory Tests Test 09/20/18 21:43 White Blood Count 11.1 x10^3/uL (4.0-11.0) H Red Blood Count 4.74 x10^6/uL (4.30-5.70) Hemoglobin 15.2 g/dL (13.0-17.5) Hematocrit 43.5 % (39.0-53.0) Mean Corpuscular Volume 92 fL (79-100) Mean Corpuscular Hemoglobin 32 pg (25-35) Mean Corpuscular Hemoglobin Concent 35 g/dL (31-37) Red Cell Distribution Width 13.4 % (11.5-14.5) Platelet Count 168 x10^3/uL (140-400) Neutrophils (%) (Auto) 75 % (31-73) H Lymphocytes (%) (Auto) 12 % (24-48) L Monocytes (%) (Auto) 9 % (0-9) Eosinophils (%) (Auto) 3 % (0-3) Basophils (%) (Auto) 1 % (0-3) Neutrophils # (Auto) 8.3 x10^3uL (1.8-7.7) H Lymphocytes # (Auto) 1.4 x10^3/uL (1.0-4.8) Monocytes # (Auto) 1.0 x10^3/uL (0.0-1.1) Eosinophils # (Auto) 0.3 x10^3/uL (0.0-0.7) Basophils # (Auto) 0.1 x10^3/uL (0.0-0.2) Prothrombin Time 14.3 SEC (11.7-14.0) H Prothrombin Time INR 1.1 (0.8-1.1) Sodium Level 140 mmol/L (136-145) Potassium Level 3.9 mmol/L (3.5-5.1) Chloride Level 105 mmol/L (98-107) Carbon Dioxide Level 25 mmol/L (21-32) Anion Gap 10 (6-14) Blood Urea Nitrogen 28 mg/dL (8-26) H Creatinine 1.3 mg/dL (0.7-1.3) Estimated GFR (Cockcroft-Gault) 57.5 BUN/Creatinine Ratio 22 (6-20) H Glucose Level 102 mg/dL (70-99) H Lactic Acid Level 1.8 mmol/L (0.4-2.0) Calcium Level 8.2 mg/dL (8.5-10.1) L Total Bilirubin 0.5 mg/dL (0.2-1.0) Aspartate Amino Transferase (AST) 32 U/L (15-37) Alanine Aminotransferase (ALT) 48 U/L (16-63) Alkaline Phosphatase 88 U/L (46-116) Troponin I Quantitative < 0.017 ng/mL (0.000-0.055) JV-Vqf-B-Type Natriuretic Peptide 212 pg/mL (0-124) H Total Protein 6.9 g/dL (6.4-8.2) Albumin 3.9 g/dL (3.4-5.0) Albumin/Globulin Ratio 1.3 (1.0-1.7) Laboratory Tests 09/20/18 21:43 Laboratory Tests 09/20/18 21:43 EKG EKG [HR 109; snius tachycardia, significant baseline artifact, no definite ST elevation or areas of ischemia; compared to previous EKG from 09/15/17 with no new significant wave form abnormalities] Radiology/Procedures Radiology/Procedures Ed Prelim read CXR: No acute cardiopulmonary process appreciated Impression: 1. Findings are suspicious for some small pulmonary emboli of the left lower lobe and lingular branches. 2. There is coronary calcification. 3. There is emphysema with upper zone predominance. 4. There is borderline mediastinal lymphadenopathy. FOR INTERNAL CODING PURPOSES Critical result: Course & Med Decision Making Course & Med Decision Making Patient is a 52 yo male w/ significant cardiac history and asthma who presents with one day of worsening shortness of breath. Patient reports he began having dry cough, clear runny nose, and shortness of breath this morning that has not improved. He reports the last time he felt like this he was admitted with pneumonia, which was 3-4 years prior. On physical exam patient is tachycardic, 93% on RA, with scattered wheezes. Remainder of physical exam unremarkable. Patient received duoneb treatment on arrival. EKG revealed sinus tachycardia. CXR unremarkable. Labs revealed elevated WBC (11.1), first troponin WNL, mildly elevated BNP, elevated PT/INR. CT angio revealed small pulmonary emboli S was ordered initially due to tachycardia out of proportion to clinical exam. Heparin was initiated. D/t shortness of breath, elevated WBC, and scattered wheezes decided to begin ceftriaxone and doxycycline to cover possible infection. Per local protocol admit patient to [facility]. Discussed plan with patient and family who voiced understanding and agreement Dragon Disclaimer Dragon Disclaimer This electronic medical record was generated, in whole or in part, using a voice recognition dictation system. Departure Departure Impression: Primary Impression: COPD exacerbation Additional Impression: Pulmonary embolism Disposition: 09 ADMITTED INPATIENT Admitting Physician: Other Condition: STABLE Referrals: NO PCP (PCP) Problem Qualifiers ISAURA MURDOCK MD Sep 20, 2018 22:10
[2018-09-20 22:11] LABS: CALCIUM 8.2 mg/dL (8.5-10.1); CREATININE 1.3 mg/dL (0.7-1.3); GFR 57.5; POTASSIUM 3.9 mmol/L (3.5-5.1)
[2018-09-20 22:18] LABS: PROTHROMBIN TIME PATIENT 14.3 SEC (11.7-14.0)
[2018-09-20 22:25] LABS: ALBUMIN 3.9 g/dL (3.4-5.0); ALBUMIN/GLOBULIN RATIO 1.3 (1.0-1.7); TOTAL BILIRUBIN 0.5 mg/dL (0.2-1.0); TOTAL PROTEIN 6.9 g/dL (6.4-8.2)
[2018-09-20] MEDS ORDERED: DOXYCYCLINE HYCLATE 100 MG in IV DEXTROSE 5% 100ML 100 ML IV ONE (22:30)
[2018-09-20] MEDS ORDERED: CONTRAST GIVEN. MC PRN (22:30)
[2018-09-20] MEDS ORDERED: cefTRIAXone IV Push 1 GM VIAL. IVP ONE (22:30)
--- NOTE | 2018-09-20 22:52 | RAD ---
PORTABLE CHEST 1V History: Shortness of air Comparison: September 11, 2017 Findings: 2 AP views of the chest are submitted. There again has been a median sternotomy. Heart size is stable. There is no lobar infiltrate, pleural fluid, pneumothorax. Impression: 1. No acute radiographic abnormality is identified. Electronically signed by: Jairo Kaur MD (09/20/2018 10:49 PM) [facility]
[2018-09-20] MEDS ORDERED: IOHEXOL 350 MG/ML 100 ML VIAL. IV ONE (23:00)
[2018-09-20 23:51] LABS: BILIRUBIN,URINE NEGATIVE (NEG); CLARITY,URINE CLEAR; COLOR,URINE YELLOW; NITRITE,URINE NEGATIVE (NEG); PH,URINE 7.5; PROTEIN,URINE NEGATIVE (NEG-TRACE)
[2018-09-20] MEDS ORDERED: RIVAROXABAN 15 MG TABLET. PO STA (23:53)
[2018-09-20 23:56] LABS: AMPHETAMINE/METHAMPHETAMINE NEG (NEG); BARBITURATES NEG (NEG); BENZODIAZEPINES NEG (NEG); CANNABINOIDS NEG (NEG); COCAINE NEG (NEG); METHADONE NEG (NEG); OPIATES NEG (NEG); PHENCYCLIDINE NEG (NEG)
--- NOTE | 2018-09-20 23:56 | RAD ---
Chest CTA History: Shortness of breath Technique: After bolus of intravenous contrast, CT imaging was performed of the chest. Multiplanar reconstruction images to include MIP reconstruction images are submitted. Exposure: One or more of the following individualized dose reduction techniques were utilized for this examination: 1. Automated exposure control 2. Adjustment of the mA and/or kV according to patient size 3. Use of iterative reconstruction technique. Comparison: None Findings: There is some motion degradation. Somewhat limited characterization due to small size, there are likely some small pulmonary emboli of the lingula and left lower lobe branches. There is coronary calcification. These been median sternotomy. There is moderate to severe emphysema with upper zone predominance. There is no pleural pericardial effusion or pneumothorax. There is probable hepatic steatosis. There is borderline enlarged subcarinal node about 1 cm short axis dimension. Right precarinal node is borderline about 1 cm. Right pretracheal node is also borderline about 1 cm. Impression: 1. Findings are suspicious for some small pulmonary emboli of the left lower lobe and lingular branches. 2. There is coronary calcification. 3. There is emphysema with upper zone predominance. 4. There is borderline mediastinal lymphadenopathy. FOR INTERNAL CODING PURPOSES Critical result: Findings discussed with ISAURA MURDOCK at 09/20/2018 11:53 PM. RESULT CODE: (C) Electronically signed by: Jairo Kaur MD (09/20/2018 11:53 PM) [facility]
[2018-09-21] MEDS ORDERED: HEPARIN for IV BOLUS 10,000 UNIT/10 ML VIAL. IV PRN ×2
[2018-09-21 00:01] LABS: BACTERIA,URINE 0 /HPF (0-FEW); RBC,URINE 0 /HPF (0-2); SQUAMOUS EPITHELIAL CELL,UR FEW /LPF; WBC,URINE 0 /HPF (0-4)
[2018-09-21] MEDS: HEPARIN 25,000UTS/500ML PREMIX 500 ML IV PRN ×2 (00:16→12:45)
[2018-09-21 00:52] LABS: INFLUENZA A PATIENT NEGATIVE (NEGATIVE); INFLUENZA B PATIENT NEGATIVE (NEGATIVE)
[2018-09-21 01:13] VITALS: BP 160/70
--- NOTE | 2018-09-21 01:36 | EKG ---
[facility] [address] [place] [address] Test Date: 2018-09-20 Test Time: 21:27:46 Pat Name: VIRGILIO LARSON Department: Room: 524 1 Gender: M Quality Controller: : 1965 Requested By: ISAURA MURDOCK Order Number: [id number] Reading MD: Santiago Jordan MD Measurements Intervals [place] Rate: 109 P: 87 [place]: 126 QRS: 21 QRSD: 96 T: 31 QT: 346 QTc: 473 Interpretive Statements SINUS TACHYCARDIA NON-SPECIFIC ST/T CHANGES Electronically Signed On 09-24-2018 16:05:02 CDT by Santiago Jordan MD
[2018-09-21] MEDS: ANTI-COAG MONITOR BY PHARMACY. MC PRN ×2 (01:53→14:32)
[2018-09-21] MEDS ORDERED: METO50TA6 PO (02:14)
[2018-09-21] MEDS ORDERED: OMEP20CA10 PO (02:14)
[2018-09-21] MEDS ORDERED: LISI10TA2 PO (02:14)
--- NOTE | 2018-09-21 02:42 | NUR ---
The patient, VIRGILIO LARSON, 52 y/o, M admitted by SANDY FARRELL MD, was given written information regarding hospital policies, unit procedures and contact persons. Valuables were checked and left with patient.
[2018-09-21 07:00] VITALS: BP 113/74
--- NOTE | 2018-09-21 08:17 | PDOC1 ---
History and Physical Date of Admission Date of Admission DATE: 09/21/18 TIME: 08:17 Identification/Chief Complaint Chief Complaint Shortness of breath Source Source: Patient History of Present Illness History of Present Illness 52 yo male w/ significant cardiac hx - ischemic cardiomyopathy with reduced EF 25-30%, coronary disease and previous bypass surgery with 4 prior stents and 2 BMS to saphenous vein graft to obtuse marginal 1 year ago who was admitted through the emergency room last evening with episodes of chest pain. Systolic pressure at that time was greater than 200. Comes also with compliant of one day of worsening shortness of breath. Patient reports he noticed this morning he was having a nonproductive cough, minimal nasal discharge, and shortness of breath. Patient reports that the last time he felt like this he had pneumonia, which was several years prior. He reports he has had "20 heart attacks", "I've 14 times", "10 stents with 2 replaced". He reports his slasher hand is Balwinder, and he is taking all of his medications as prescribed, including clopidogrel. 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 He denies hx of blood clots. He denies having a flu shot this year. He also denies having any sick contacts or recent international travel. Patient denies drug use, admits to occasional alcohol use, and is a smoker who "quit smoking yesterday". Found on CTPA to have small emboli in left lower lobe, started on Xarelto and heparin GTT per ED. He has h/o COPD and liver disease in both sides of the family as well as CAD. Seen in room he is c/o lower back pain and some shortness of breath, but in the same breath asks if he can go back to work tomorrow. Past Medical History Cardiovascular: CAD, CHF, HTN, [place], Hyperlipidemia, Other Pulmonary: Asthma GI: No pertinent hx Heme/Onc: No pertinent hx Hepatobiliary: No pertinent hx Psych: Anxiety Musculoskeletal: Osteoarthritis Rheumatologic: No pertinent hx Infectious disease: No pertinent hx Renal/: No pertinent hx Endocrine: No pertinent hx Past Surgical History Past Surgical History: Appendectomy, CABG, Other Family History Family History: Cancer, Chronic Bronchitis Social History ALCOHOL: social Drugs: None Current Problem List Problem List Problems Medical Problems: (1) Pulmonary embolism Status: Acute Current Medications Current Medications Current Medications Albuterol/ Ipratropium (Duoneb) 3 ml 1X ONCE NEB Last administered on at 21:16; Start 09/20/18 at 21:15; Stop 09/20/18 at 21:16; Status DC Methylprednisolone Sodium Succinate (SOLU-Medrol 125MG VIAL) 125 mg 1X ONCE IV Last administered on 09/20/18at 22:11; Start 09/20/18 at 22:00; Stop 09/20/18 at 22:01; Status DC Doxycycline Hyclate 100 mg/ Dextrose 100 ml @ 50 mls/hr 1X ONCE IV Last administered on 09/20/18at 22:46; Start 09/20/18 at 22:30; Stop 09/21/18 at 00:29 ; Status DC Ceftriaxone Sodium (Rocephin) 1 gm 1X ONCE IVP Last administered on 09/20/18at 22:43; Start 09/20/18 at 22:30; Stop 09/20/18 at 22:31; Status DC Iohexol (Omnipaque 350 Mg/ml) 100 ml 1X ONCE IV Last administered on at 23:08; Start 09/20/18 at 23:00; Stop 09/20/18 at 23:01; Status DC Info (CONTRAST GIVEN -- Rx MONITORING) 1 each PRN DAILY PRN MC SEE COMMENTS; Start 09/20/18 at 22:30; Stop 09/22/18 at 22:29 Albuterol/ Ipratropium (Duoneb) 3 ml RTQID NEB ; Start 09/21/18 at 08:00; Stop 09/22/18 at 07:59 Rivaroxaban (Xarelto) 15 mg 1X STAT PO ; Start 09/20/18 at 23:53; Stop at 23:57; Status DC Heparin Sodium/ Dextrose 500 ml @ 0 mls/hr CONT PRN IV SEE I/O RECORD Last administered on 09/21/18at 00:16; Start 09/21/18 at 00:00 Heparin Sodium (Porcine) (Heparin Sodium) 3,550 unit PRN Q6HRS PRN IV FOR UFH LEVEL LESS THAN 0.2; Start 09/21/18 at 00:00 Heparin Sodium (Porcine) (Heparin Sodium) 1,750 unit PRN Q6HRS PRN IV FOR UFH LEVEL 0.2 - 0.29; Start 09/21/18 at 00:00 Info (Anti-Coagulation Monitoring By Pharmacy) 1 each PRN DAILY PRN MC SEE COMMENTS Last administered on 09/21/18at 01:53; Start 09/21/18 at 00:15 Influenza Virus Vaccine (Afluria Trivalent [id number] Syringe) 0.5 ml ONCE ONCE VAX IM ; Start 09/21/18 at 09:00; Stop 09/21/18 at 09:01 Active Scripts Active Azithromycin Tablet (Azithromycin) 250 Mg Tablet 250 Mg PO DAILY 3 Days Aspirin Ec (Aspirin) 325 Mg Tablet. 325 Mg PO DAILYWBKFT 30 Days Plavix (Clopidogrel Bisulfate) 75 Mg Tablet 1 Tab PO DAILY Atorvastatin Calcium 20 Mg Tablet 20 Mg PO QHS Reported Lisinopril 10 Mg Tablet 1 Tab PO DAILY Omeprazole 20 Mg Capsule. 1 Cap PO DAILY Metoprolol Tartrate 50 Mg Tablet 1 Tab PO DAILY Allergies Allergies: Coded Allergies: I S O L A T I O N *CONTACT* (Verified Allergy, Unknown, 10/03/16) +MRSA screen 10-02-16 No Known Medication Allergies (Verified Allergy, Unknown, 10/03/16) ROS General: YES: Fatigue, Malaise; No: Chills, Night Sweats, Appetite, Other PSYCHOLOGICAL ROS: No: Anxiety, Behavioral Disorder, Concentration difficultie , Decreased libido, Depression, Disorientation, Hallucinations, Hostility, Irritablity, Memory difficulties, Mood Swings, Obsessive thoughts, Physical abuse, Sexual abuse, Sleep disturbances, Suicidal ideation, Other Eyes: No Blurry vision, No Decreased vision, No Double vision, No Dry eyes, No Excessive tearing, No Eye Pain, No Itchy Eyes, No Loss of vision, No Photophobia , No Scotomata, No Uses contacts, No Uses glasses, No Other HEENT: No: Heacaches, Visual Changes, Hearing change, Nasal congestion, Nasal discharge, Oral lesions, Sinus pain, Sore Throat, Epistaxis, Sneezing, Snoring, Tinnitus, Vertigo, Vocal changes, Other ALLERGY AND IMMUNOLOGY: No: Hives, Insect Bite Sensitivity, Itchy/Watery Eyes, Nasal Congestion, Post Nasal Drip, Seasonal Allergies, Other Hematological and Lymphatic: No: Bleeding Problems, Blood Clots, Blood Transfusions, Brusing, Night Sweats, Pallor, Swollen Lymph Nodes, Other ENDOCRINE: No: Breast Changes, Galactorrhea, Hair Pattern Changes, Hot Flashes , Malaise/lethargy, Mood Swings, Palpitations, Polydipsia/polyuria, Skin Changes , Temperature Intolerance, Unexpected Weight Changes, Other Breast: No New/Changing Breast Lumps, No Nipple changes, No Nipple discharge, No Other Respiratory: YES: Cough, Orthopnea, Pleuritic Pain, Shortness of breath, SOB with excertion, Tachypnea, Wheezing; No: Hemoptysis, Sputum Changes, Stridor, Other Cardiovascular: yes Chest Pain; No Palpitations, No Orthopnea, No Paroxysmal Noc. Dyspnea, No Edema, No Lt Headedness, No Other Gastrointestinal: Yes Nausea; No Vomiting, No Abdominal Pain, No Diarrhea, No Constipation, No Melena, No Hematochezia, No Other Genitourinary: No Dysuria, No Frequency, No Incontinence, No Hematuria, No Retention, No Discharge, No Urgency, No Pain, No Flank Pain, No Other, No , No , No , No , No , No , No Musculoskeletal: No Gait Disturbance, No Joint Pain, No Joint Stiffness, No Joint Swelling, No Muscle Pain, No Muscular Weakness, No Pain In:, No Swelling In:, No Other Neurological: No Behavorial Changes, No Bowel/Bladder ControlChng, No Confusion , No Dizziness, No Gait Disturbance, No Headaches, No Impaired Coord/balance, No Memory Loss, No Numbness/Tingling, No Seizures, No Speech Problems, No Tremors, No Visual Changes, No Weakness, No Other Skin: No Dry Skin, No Eczema, No Hair Changes, No Lumps, No Mole Changes, No Mottling, No Nail Changes, No Pruritus, No Rash, No Skin Lesion Changes, No Other, No Acne Physical Exam General: Alert, Oriented X3, Cooperative, No acute distress HEENT: Atraumatic, PERRLA, EOMI, Mucous membr. moist/pink Lungs: Other (Scattered wheezing bilaterally) Heart: S1S2, RRR, no gallops, no murmurs Abdomen: Normal bowel sounds, Soft, No tenderness, No hepatosplenomegaly, No masses Extremities: No clubbing, No cyanosis, No edema, Normal pulses, No tenderness/ swelling Skin: No rashes, No breakdown, No significant lesion Neuro: Normal gait, Normal speech, Strength at 5/5 X4 ext, Normal tone, Sensation intact, Cranial nerves 3-12 NL, Reflexes 2+ Psych/Mental Status: Mental status NL, Mood NL Vitals Vitals Vital Signs Date Time Temp Pulse Resp B/P (MAP) Pulse Ox O2 Delivery O2 Flow Rate FiO2 09/21/18 01:53 Room Air 09/21/18 01:13 98.7 81 20 160/70 (100) 95 98.7 Labs Labs Laboratory Tests Test 09/20/18 21:43 09/20/18 23:43 09/21/18 00:07 09/21/18 05:50 White Blood Count 11.1 x10^3/uL (4.0-11.0) Red Blood Count 4.74 x10^6/uL (4.30-5.70) Hemoglobin 15.2 g/dL (13.0-17.5) Hematocrit 43.5 % (39.0-53.0) Mean Corpuscular Volume 92 fL (79-100) Mean Corpuscular Hemoglobin 32 pg (25-35) Mean Corpuscular Hemoglobin Concent 35 g/dL (31-37) Red Cell Distribution Width 13.4 % (11.5-14.5) Platelet Count 168 x10^3/uL (140-400) Neutrophils (%) (Auto) 75 % (31-73) Lymphocytes (%) (Auto) 12 % (24-48) Monocytes (%) (Auto) 9 % (0-9) Eosinophils (%) (Auto) 3 % (0-3) Basophils (%) (Auto) 1 % (0-3) Neutrophils # (Auto) 8.3 x10^3uL (1.8-7.7) Lymphocytes # (Auto) 1.4 x10^3/uL (1.0-4.8) Monocytes # (Auto) 1.0 x10^3/uL (0.0-1.1) Eosinophils # (Auto) 0.3 x10^3/uL (0.0-0.7) Basophils # (Auto) 0.1 x10^3/uL (0.0-0.2) Prothrombin Time 14.3 SEC (11.7-14.0) Prothromb Time International Ratio 1.1 (0.8-1.1) Sodium Level 140 mmol/L (136-145) Potassium Level 3.9 mmol/L (3.5-5.1) Chloride Level 105 mmol/L (98-107) Carbon Dioxide Level 25 mmol/L (21-32) Anion Gap 10 (6-14) Blood Urea Nitrogen 28 mg/dL (8-26) Creatinine 1.3 mg/dL (0.7-1.3) Estimated GFR (Cockcroft-Gault) 57.5 BUN/Creatinine Ratio 22 (6-20) Glucose Level 102 mg/dL (70-99) Lactic Acid Level 1.8 mmol/L (0.4-2.0) Calcium Level 8.2 mg/dL (8.5-10.1) Total Bilirubin 0.5 mg/dL (0.2-1.0) Aspartate Amino Transf (AST/SGOT) 32 U/L (15-37) Alanine Aminotransferase (ALT/SGPT) 48 U/L (16-63) Alkaline Phosphatase 88 U/L (46-116) Troponin I Quantitative < 0.017 ng/mL (0.000-0.055) < 0.017 ng/mL (0.000-0.055) WP-Wrk-H-Type Natriuretic Peptide 212 pg/mL (0-124) Total Protein 6.9 g/dL (6.4-8.2) Albumin 3.9 g/dL (3.4-5.0) Albumin/Globulin Ratio 1.3 (1.0-1.7) Urine Collection Type Unknown Urine Color Yellow Urine Clarity Clear Urine pH 7.5 Urine Specific [place] >=1.030 Urine Protein Negative mg/dL (NEG-TRACE) Urine Glucose (UA) Negative mg/dL (NEG) Urine Ketones (Stick) Trace mg/dL (NEG) Urine Blood Negative (NEG) Urine Nitrite Negative (NEG) Urine Bilirubin Negative (NEG) Urine Urobilinogen Dipstick 1.0 mg/dL (0.2 mg/dL) Urine Leukocyte Esterase Negative (NEG) Urine RBC 0 /HPF (0-2) Urine WBC 0 /HPF (0-4) Urine Squamous Epithelial Cells Few /LPF Urine Bacteria 0 /HPF (0-FEW) Urine Mucus Slight /LPF Urine Opiates Screen Neg (NEG) Urine Methadone Screen Neg (NEG) Urine Barbiturates Neg (NEG) Urine Phencyclidine Screen Neg (NEG) Urine Amphetamine/Methamphetamine Neg (NEG) Urine Benzodiazepines Screen Neg (NEG) Urine Cocaine Screen Neg (NEG) Urine Cannabinoids Screen Neg (NEG) Urine Ethyl Alcohol Neg (NEG) Influenza Type A Antigen Negative (NEGATIVE) Influenza Type B Antigen Negative (NEGATIVE) Heparin Anti-Xa Act, Unfractionated 0.67 IU/mL (0.30-0.70) Laboratory Tests Test 09/20/18 21:43 09/20/18 23:43 09/21/18 00:07 09/21/18 05:50 White Blood Count 11.1 x10^3/uL (4.0-11.0) Red Blood Count 4.74 x10^6/uL (4.30-5.70) Hemoglobin 15.2 g/dL (13.0-17.5) Hematocrit 43.5 % (39.0-53.0) Mean Corpuscular Volume 92 fL (79-100) Mean Corpuscular Hemoglobin 32 pg (25-35) Mean Corpuscular Hemoglobin Concent 35 g/dL (31-37) Red Cell Distribution Width 13.4 % (11.5-14.5) Platelet Count 168 x10^3/uL (140-400) Neutrophils (%) (Auto) 75 % (31-73) Lymphocytes (%) (Auto) 12 % (24-48) Monocytes (%) (Auto) 9 % (0-9) Eosinophils (%) (Auto) 3 % (0-3) Basophils (%) (Auto) 1 % (0-3) Neutrophils # (Auto) 8.3 x10^3uL (1.8-7.7) Lymphocytes # (Auto) 1.4 x10^3/uL (1.0-4.8) Monocytes # (Auto) 1.0 x10^3/uL (0.0-1.1) Eosinophils # (Auto) 0.3 x10^3/uL (0.0-0.7) Basophils # (Auto) 0.1 x10^3/uL (0.0-0.2) Prothrombin Time 14.3 SEC (11.7-14.0) Prothromb Time International Ratio 1.1 (0.8-1.1) Sodium Level 140 mmol/L (136-145) Potassium Level 3.9 mmol/L (3.5-5.1) Chloride Level 105 mmol/L (98-107) Carbon Dioxide Level 25 mmol/L (21-32) Anion Gap 10 (6-14) Blood Urea Nitrogen 28 mg/dL (8-26) Creatinine 1.3 mg/dL (0.7-1.3) Estimated GFR (Cockcroft-Gault) 57.5 BUN/Creatinine Ratio 22 (6-20) Glucose Level 102 mg/dL (70-99) Lactic Acid Level 1.8 mmol/L (0.4-2.0) Calcium Level 8.2 mg/dL (8.5-10.1) Total Bilirubin 0.5 mg/dL (0.2-1.0) Aspartate Amino Transf (AST/SGOT) 32 U/L (15-37) Alanine Aminotransferase (ALT/SGPT) 48 U/L (16-63) Alkaline Phosphatase 88 U/L (46-116) Troponin I Quantitative < 0.017 ng/mL (0.000-0.055) < 0.017 ng/mL (0.000-0.055) NB-Tlg-G-Type Natriuretic Peptide 212 pg/mL (0-124) Total Protein 6.9 g/dL (6.4-8.2) Albumin 3.9 g/dL (3.4-5.0) Albumin/Globulin Ratio 1.3 (1.0-1.7) Urine Collection Type Unknown Urine Color Yellow Urine Clarity Clear Urine pH 7.5 Urine Specific [place] >=1.030 Urine Protein Negative mg/dL (NEG-TRACE) Urine Glucose (UA) Negative mg/dL (NEG) Urine Ketones (Stick) Trace mg/dL (NEG) Urine Blood Negative (NEG) Urine Nitrite Negative (NEG) Urine Bilirubin Negative (NEG) Urine Urobilinogen Dipstick 1.0 mg/dL (0.2 mg/dL) Urine Leukocyte Esterase Negative (NEG) Urine RBC 0 /HPF (0-2) Urine WBC 0 /HPF (0-4) Urine Squamous Epithelial Cells Few /LPF Urine Bacteria 0 /HPF (0-FEW) Urine Mucus Slight /LPF Urine Opiates Screen Neg (NEG) Urine Methadone Screen Neg (NEG) Urine Barbiturates Neg (NEG) Urine Phencyclidine Screen Neg (NEG) Urine Amphetamine/Methamphetamine Neg (NEG) Urine Benzodiazepines Screen Neg (NEG) Urine Cocaine Screen Neg (NEG) Urine Cannabinoids Screen Neg (NEG) Urine Ethyl Alcohol Neg (NEG) Influenza Type A Antigen Negative (NEGATIVE) Influenza Type B Antigen Negative (NEGATIVE) Heparin Anti-Xa Act, Unfractionated 0.67 IU/mL (0.30-0.70) Images Images CTPA - 1. Findings are suspicious for some small pulmonary emboli of the left lower lobe and lingular branches. 2. There is coronary calcification. 3. There is emphysema with upper zone predominance. 4. There is borderline mediastinal lymphadenopathy. VTE Prophylaxis Ordered VTE Prophylaxis Devices: Yes VTE Pharmacological Prophylaxi: Yes Assessment/Plan Assessment/Plan A/P: Shortness of breath - started for PE treatment with possible small emboli in left lower lobe on xarelto x1 and heparin GTT. Will consult pulm as COPD is more likely dx COPD with exacerbation - literally just quit smoking. Has strong family history of liver and lung cancer as well as COPD. Will screen for alpha-1 antitrypsin simply based on liver and lung history and his own personal history of chronic asthmatic bronchitis Asthma - moderate persistent since age 8 per patient - nebs, steroids, doxycycline Chest pain with cardiac hx - coronary disease and previous bypass surgery with 4 prior stents and 2 BMS to saphenous vein graft to obtuse marginal 1 year ago who was admitted through the emergency room last evening with episodes of chest pain that resolved before arrival, was more shortness of breath. Negative trop and EKG, compliant with meds. Will consult cardiology if status changes. Cont tele Ischemic cardiomyopathy with reduced EF 25-30% - optimized on meds with Dr. Britt outpatient. He does not feel he needs cardiac consultation. Trops negative. No evidence of severe fluid overload, but mild CHF exacerbation is likely with his CXR and BNP. Will await diuresis until after fluids given for his contrast for CTPA to avoid further renal insult Smoker - just quit yesterday. Counseled further on cessation, does not wish for nicotine replacement therapy. FEN - General Diet PPX - Heparin FULL CODE Inpatient for COPD exacerbation with strong cardiac history and possible acute PE. Will need at least a total of 2 midnights to improve his status OLMAN JAY MD Sep 21, 2018 08:17
[2018-09-21] MEDS: IPRATRPIUM/ALBUTEROL 0.5/2.5MG 3 ML NEBU. NEB SCH ×7 (08:19→20:02)
--- NOTE | 2018-09-21 09:31 | NUR ---
IP: Pt has a hx of + mrsa screens since 2017 with most current on 09/12/17. Pt to be in contact precautions until there are 2 negative screens 7 days apart.
--- NOTE | 2018-09-21 11:00 | NUR ---
Reviewed Home Medications, per Dr. Tellez's request, for inpatient orders.
[2018-09-21 11:18] VITALS: BP 149/78
[2018-09-21] MEDS: guaiFENesin ORAL 200 MG/10 ML LIQUID. PO PRN ×2 (11:23→15:53)
[2018-09-21] MEDS: BENZOCAINE/MENTHOL LOZENGE. PO PRN ×2 (11:23→15:53)
[2018-09-21] MEDS: BUDESONIDE 0.5 MG/2 ML NEBU. NEB SCH ×2 (12:00→20:02)
[2018-09-21] MEDS: ASPIRIN ENTERIC COATED 325 MG TABLET.DR. PO SCH (12:54)
[2018-09-21] MEDS: PANTOPRAZOLE 40 MG TABLET.DR. PO SCH (12:54)
[2018-09-21] MEDS: LISINOPRIL 10 MG TABLET PO SCH (12:55)
[2018-09-21] MEDS: CLOPIDOGREL BISULFATE 75 MG TABLET PO SCH (12:55)
[2018-09-21] MEDS: DOXYCYCLINE HYCLATE 100 MG in IV DEXTROSE 5% 100ML 100 ML IV SCH ×2 (12:56→21:36)
[2018-09-21] MEDS: METOPROLOL TART IMMED RELEASE 50 MG TABLET. PO SCH (12:56)
[2018-09-21] MEDS ORDERED: IV NORMAL SALINE 500ML BAG 500 ML IV ONE (13:15)
--- NOTE | 2018-09-21 13:26 | CONS ---
DATE OF CONSULTATION: ATTENDING PHYSICIAN: Dr. Tellez. REASON FOR CONSULTATION: Possible pulmonary embolism. HISTORY OF PRESENT ILLNESS: The patient is a 52-year-old male with history of ischemic cardiomyopathy with an EF of 25-30%, history of coronary artery disease, has a previous bypass surgery and multiple stents. He has a history of chronic exertional dyspnea. He says the shortness of breath comes and goes. He was brought into the hospital with some shortness of breath. He states he has some cough, which has been nonproductive and some postnasal drainage. The patient also had some chest pain. He states he was pointing in the epigastric area. He said it was not like his anginal pain. The patient denies any leg pain. No significant swelling. He states that he wants to go home as he has to work tomorrow. I have reviewed the patient's CT chest done with pulmonary embolism protocol. I have discussed with the radiologist. I am not convinced that he has any clinically significant pulmonary embolism. There was a lot of motion artifact as well as some volume averaging. The patient has some borderline mediastinal adenopathy and evidence of emphysema. He was placed on heparin and received one dose of Xarelto. I have been asked to see him for further evaluation. PAST MEDICAL HISTORY: Significant for history of coronary artery disease, CHF, hypertension, [place], hyperlipidemia and COPD with ongoing tobaccoism. PAST SURGICAL HISTORY: Appendectomy, CABG and stents. SOCIAL HISTORY: Smoker since age 5. He has quit for 7 years, but then restarted smoking and continues to smoke cigarettes. ALLERGIES: None. CURRENT MEDICATIONS: All reviewed as listed in the MRAD. REVIEW OF SYSTEMS: Twelve-point system obtained. Pertinent positives discussed in my history of present illness, otherwise noncontributory. All systems that were negative were reviewed as well. FAMILY HISTORY: Noncontributory to lungs. PHYSICAL EXAMINATION: VITAL SIGNS: Reviewed. Pulse ox 96% on room air. NECK: Supple. LUNGS: Diminished breath sounds. No crackles, no wheezes. CARDIOVASCULAR: Regular rate and rhythm. ABDOMEN: Soft, nontender, obese. EXTREMITIES: With no pitting edema. LABORATORY DATA: Reviewed. Influenza screen is negative. Urine drug screen negative. Chemistries with a BUN of 28 and a creatinine of 1.3. IMPRESSION: 1. Chronic exertional dyspnea with recent increase in a patient with an EF of 25% and has a long history of tobacco use for at least 35 years. He had some wake chest pain. At this point, these symptoms could be related to combination of his cardiomyopathy and chronic obstructive pulmonary disease. I am not convinced that he has significant pulmonary embolism. There was a lot of motion artifact and volume averaging on the CT chest. Before subjecting him to long-term anticoagulation, I would like to repeat CT chest. We will hydrate him prior to that. The patient has an urgency to leave the hospital tonight as he wants to be at work and does not want to stay anymore in the hospital. 2. Underlying chronic obstructive pulmonary disease with ongoing tobaccoism. 3. Ischemic cardiomyopathy with an EF of 25-30%, with prior history of bypass and multiple stents. 4. Underlying obesity with a BMI of 38. 5. Acute bronchitis. RECOMMENDATIONS: 1. Continue with present DuoNebs and Pulmicort. 2. Continue oral doxycycline. 3. Continue Plavix. 4. Currently is on heparin and he has also received Xarelto 1 dose. At this time, I would recommend repeating another CTA chest with prior hydration. Once CT is done, we can make a better assessment whether he truly has any thromboembolic disease or not and based on that, we will make recommendations for anticoagulation. Discussed with RN. We will follow along with you. Discussed with radiology staff who also was not convinced about pulmonary embolism. EDUARDO RUSSO MD DR: ALDAIR/zoie JOB#: [id number] / [id number]
[2018-09-21] MEDS ORDERED: IOHEXOL 350 MG/ML 100 ML VIAL. IV ONE (13:30)
[2018-09-21] MEDS ORDERED: CONTRAST GIVEN. MC PRN (13:30)
--- NOTE | 2018-09-21 13:43 | NUR ---
Fluids bag would not scan; however, it was administered per doctor order.
[2018-09-21 14:40] VITALS: BP 146/80
--- NOTE | 2018-09-21 15:07 | RAD ---
PQRS Compliance statement: One or more of the following individualized dose reduction techniques were utilized for this examination: 1. Automated exposure control. 2. Adjustment of the mA and/or kV according to patient size. 3. Use of iterative reconstruction technique. Indication:POSSIBLE PEs SEEN ON CT LAST NIGHT, COUGH, SOA, [id number] 100ML, PT HYDRATED TECHNIQUE: CT angiogram of the chest with IV contrast with multiplanar MIP reformats. COMPARISON:CT from 09/20/2018 FINDINGS: Diagnostic quality PE study. There are no central, segmental or subsegmental filling defects in the pulmonary arteries. Heart is normal in size. No pericardial or pleural effusion. CABG changes noted. Clear neck base. No enlarged axillary or hilar adenopathy. Shotty mediastinal lymph nodes, nonspecific likely reactive. Subsegmental atelectasis or scarring is seen in the left lung base. Moderate emphysematous changes in the bilateral upper lobes. Visualized sections through the liver, spleen, adrenals within normal limits. No suspicious bony lesion. IMPRESSION: 1. No PE. Electronically signed by: Justin Buckley DO (09/21/2018 3:04 PM) [facility]
--- NOTE | 2018-09-21 16:22 | NUR ---
SW following pt for anticipated dc needs. Chart reviewed. Pt lives at home with family. No discharge recommendations noted at this time. Will continue to evaluate dc needs.
[2018-09-21 19:00] VITALS: BP 123/79
[2018-09-21] MEDS: traMADol 50 MG TABLET PO PRN (19:32)
[2018-09-21] MEDS: guaiFENesin/CODEINE 100mg/10mg 5 ML LIQUID PO PRN (19:32)
[2018-09-21] MEDS: ATORVASTATIN CALCIUM 20 MG TABLET PO SCH (21:35)
[2018-09-21 22:49] VITALS: BP 125/59
[2018-09-22] VITALS (7 sets, daily range): BP systolic 108–141; BP diastolic 52–74
[2018-09-22] MEDS: HEPARIN 25,000UTS/500ML PREMIX 500 ML IV PRN (03:03)
[2018-09-22] MEDS: PANTOPRAZOLE 40 MG TABLET.DR. PO SCH (05:53)
[2018-09-22 06:16] LABS: HEMATOCRIT 40.5 % (39.0-53.0); HEMOGLOBIN 14.3 g/dL (13.0-17.5); RED BLOOD COUNT 4.39 x10^6/uL (4.30-5.70); RED CELL DISTRIBUTION WIDTH 13.4 % (11.5-14.5); WHITE BLOOD COUNT 10.9 x10^3/uL (4.0-11.0)
[2018-09-22] MEDS: IPRATRPIUM/ALBUTEROL 0.5/2.5MG 3 ML NEBU. NEB SCH ×4 (07:11→19:50)
[2018-09-22] MEDS: BUDESONIDE 0.5 MG/2 ML NEBU. NEB SCH ×2 (07:11→19:50)
[2018-09-22] MEDS: traMADol 50 MG TABLET PO PRN (09:18)
[2018-09-22] MEDS: guaiFENesin/CODEINE 100mg/10mg 5 ML LIQUID PO PRN (09:18)
[2018-09-22] MEDS: METOPROLOL TART IMMED RELEASE 50 MG TABLET. PO SCH (09:19)
[2018-09-22] MEDS: DOXYCYCLINE HYCLATE 100 MG in IV DEXTROSE 5% 100ML 100 ML IV SCH ×2 (09:20→21:39)
[2018-09-22] MEDS: CLOPIDOGREL BISULFATE 75 MG TABLET PO SCH (09:20)
[2018-09-22] MEDS: LISINOPRIL 10 MG TABLET PO SCH (09:20)
[2018-09-22] MEDS: ASPIRIN ENTERIC COATED 325 MG TABLET.DR. PO SCH (09:20)
[2018-09-22 09:35] LABS: CALCIUM 8.2 mg/dL (8.5-10.1); CREATININE 1.2 mg/dL (0.7-1.3); GFR 63.1; POTASSIUM 4.1 mmol/L (3.5-5.1)
--- NOTE | 2018-09-22 11:07 | PDOC ---
PULMONARY PROGRESS NOTES Subjective some soa with exertion Vitals Vital Signs Date Time Temp Pulse Resp B/P (MAP) Pulse Ox O2 Delivery O2 Flow Rate FiO2 09/22/18 09:20 97 119/74 09/22/18 07:11 92 Room Air 09/22/18 07:00 98.5 18 98.5 ROS: No Chest Pain, No Increase Cough General: Alert, No acute distress Lungs: Clear Cardiovascular: S1, S2 Abdomen: Soft, Other (obese) Neuro Exam: Alert Extremities: Other (1+edema) Labs Laboratory Tests Test 09/20/18 21:43 09/20/18 23:43 09/21/18 00:07 09/21/18 05:00 White Blood Count 11.1 x10^3/uL (4.0-11.0) Red Blood Count 4.74 x10^6/uL (4.30-5.70) Hemoglobin 15.2 g/dL (13.0-17.5) Hematocrit 43.5 % (39.0-53.0) Mean Corpuscular Volume 92 fL (79-100) Mean Corpuscular Hemoglobin 32 pg (25-35) Mean Corpuscular Hemoglobin Concent 35 g/dL (31-37) Red Cell Distribution Width 13.4 % (11.5-14.5) Platelet Count 168 x10^3/uL (140-400) Neutrophils (%) (Auto) 75 % (31-73) Lymphocytes (%) (Auto) 12 % (24-48) Monocytes (%) (Auto) 9 % (0-9) Eosinophils (%) (Auto) 3 % (0-3) Basophils (%) (Auto) 1 % (0-3) Neutrophils # (Auto) 8.3 x10^3uL (1.8-7.7) Lymphocytes # (Auto) 1.4 x10^3/uL (1.0-4.8) Monocytes # (Auto) 1.0 x10^3/uL (0.0-1.1) Eosinophils # (Auto) 0.3 x10^3/uL (0.0-0.7) Basophils # (Auto) 0.1 x10^3/uL (0.0-0.2) Prothrombin Time 14.3 SEC (11.7-14.0) Prothromb Time International Ratio 1.1 (0.8-1.1) Sodium Level 140 mmol/L (136-145) Potassium Level 3.9 mmol/L (3.5-5.1) Chloride Level 105 mmol/L (98-107) Carbon Dioxide Level 25 mmol/L (21-32) Anion Gap 10 (6-14) Blood Urea Nitrogen 28 mg/dL (8-26) Creatinine 1.3 mg/dL (0.7-1.3) Estimated GFR (Cockcroft-Gault) 57.5 BUN/Creatinine Ratio 22 (6-20) Glucose Level 102 mg/dL (70-99) Lactic Acid Level 1.8 mmol/L (0.4-2.0) Calcium Level 8.2 mg/dL (8.5-10.1) Total Bilirubin 0.5 mg/dL (0.2-1.0) Aspartate Amino Transf (AST/SGOT) 32 U/L (15-37) Alanine Aminotransferase (ALT/SGPT) 48 U/L (16-63) Alkaline Phosphatase 88 U/L (46-116) Troponin I Quantitative < 0.017 ng/mL (0.000-0.055) TS-Aho-T-Type Natriuretic Peptide 212 pg/mL (0-124) Total Protein 6.9 g/dL (6.4-8.2) Albumin 3.9 g/dL (3.4-5.0) Albumin/Globulin Ratio 1.3 (1.0-1.7) Urine Collection Type Unknown Urine Color Yellow Urine Clarity Clear Urine pH 7.5 Urine Specific [place] >=1.030 Urine Protein Negative mg/dL (NEG-TRACE) Urine Glucose (UA) Negative mg/dL (NEG) Urine Ketones (Stick) Trace mg/dL (NEG) Urine Blood Negative (NEG) Urine Nitrite Negative (NEG) Urine Bilirubin Negative (NEG) Urine Urobilinogen Dipstick 1.0 mg/dL (0.2 mg/dL) Urine Leukocyte Esterase Negative (NEG) Urine RBC 0 /HPF (0-2) Urine WBC 0 /HPF (0-4) Urine Squamous Epithelial Cells Few /LPF Urine Bacteria 0 /HPF (0-FEW) Urine Mucus Slight /LPF Urine Opiates Screen Neg (NEG) Urine Methadone Screen Neg (NEG) Urine Barbiturates Neg (NEG) Urine Phencyclidine Screen Neg (NEG) Urine Amphetamine/Methamphetamine Neg (NEG) Urine Benzodiazepines Screen Neg (NEG) Urine Cocaine Screen Neg (NEG) Urine Cannabinoids Screen Neg (NEG) Urine Ethyl Alcohol Neg (NEG) Influenza Type A Antigen Negative (NEGATIVE) Influenza Type B Antigen Negative (NEGATIVE) Nasal Screen MRSA (PCR) Positive (Negative) Test 09/21/18 05:50 09/21/18 12:05 09/21/18 18:50 09/21/18 23:45 Heparin Anti-Xa Act, Unfractionated 0.67 IU/mL (0.30-0.70) 0.96 IU/mL (0.30-0.70) 0.99 IU/mL (0.30-0.70) 0.87 IU/mL (0.30-0.70) Troponin I Quantitative < 0.017 ng/mL (0.000-0.055) Jyugc-2-Jjqzlsfseto 156 mg/dL (90-200) Test 09/22/18 05:45 White Blood Count 10.9 x10^3/uL (4.0-11.0) Red Blood Count 4.39 x10^6/uL (4.30-5.70) Hemoglobin 14.3 g/dL (13.0-17.5) Hematocrit 40.5 % (39.0-53.0) Mean Corpuscular Volume 92 fL (79-100) Mean Corpuscular Hemoglobin 33 pg (25-35) Mean Corpuscular Hemoglobin Concent 35 g/dL (31-37) Red Cell Distribution Width 13.4 % (11.5-14.5) Platelet Count 149 x10^3/uL (140-400) Heparin Anti-Xa Act, Unfractionated 0.54 IU/mL (0.30-0.70) Sodium Level 139 mmol/L (136-145) Potassium Level 4.1 mmol/L (3.5-5.1) Chloride Level 103 mmol/L (98-107) Carbon Dioxide Level 25 mmol/L (21-32) Anion Gap 11 (6-14) Blood Urea Nitrogen 24 mg/dL (8-26) Creatinine 1.2 mg/dL (0.7-1.3) Estimated GFR (Cockcroft-Gault) 63.1 Glucose Level 104 mg/dL (70-99) Calcium Level 8.2 mg/dL (8.5-10.1) Laboratory Tests Test 09/21/18 12:05 09/21/18 18:50 09/21/18 23:45 09/22/18 05:45 Heparin Anti-Xa Act, Unfractionated 0.96 IU/mL (0.30-0.70) 0.99 IU/mL (0.30-0.70) 0.87 IU/mL (0.30-0.70) 0.54 IU/mL (0.30-0.70) Wequk-2-Hzlyekqjwxr 156 mg/dL (90-200) White Blood Count 10.9 x10^3/uL (4.0-11.0) Red Blood Count 4.39 x10^6/uL (4.30-5.70) Hemoglobin 14.3 g/dL (13.0-17.5) Hematocrit 40.5 % (39.0-53.0) Mean Corpuscular Volume 92 fL (79-100) Mean Corpuscular Hemoglobin 33 pg (25-35) Mean Corpuscular Hemoglobin Concent 35 g/dL (31-37) Red Cell Distribution Width 13.4 % (11.5-14.5) Platelet Count 149 x10^3/uL (140-400) Sodium Level 139 mmol/L (136-145) Potassium Level 4.1 mmol/L (3.5-5.1) Chloride Level 103 mmol/L (98-107) Carbon Dioxide Level 25 mmol/L (21-32) Anion Gap 11 (6-14) Blood Urea Nitrogen 24 mg/dL (8-26) Creatinine 1.2 mg/dL (0.7-1.3) Estimated GFR (Cockcroft-Gault) 63.1 Glucose Level 104 mg/dL (70-99) Calcium Level 8.2 mg/dL (8.5-10.1) Medications Active Scripts Medications Dose Route/Sig Max Daily Dose Days Date Category Lisinopril 10 Mg Tablet 1 Tab PO DAILY 09/21/18 Reported Omeprazole 20 Mg Capsule.dr 1 Cap PO DAILY 09/21/18 Reported Metoprolol Tartrate 50 Mg Tablet 1 Tab PO DAILY 09/21/18 Reported Azithromycin Tablet (Azithromycin) 250 Mg Tablet 250 Mg PO DAILY 3 09/16/17 Rx Aspirin Ec (Aspirin) 325 Mg Tablet.dr 325 Mg PO DAILYWBKFT 30 09/16/17 Rx Plavix (Clopidogrel Bisulfate) 75 Mg Tablet 1 Tab PO DAILY 02/25/17 Rx Atorvastatin Calcium 20 Mg Tablet 20 Mg PO QHS 10/04/16 Rx Impression . 1. Chronic exertional dyspnea with recent increase in a patient with an EF of 50% / grade II diastolic dysfunction and has a long history of tobacco use for at least 35 years. He had some wake chest pain. At this point, these symptoms could be related to combination of CHF and chronic obstructive pulmonary disease. I am not convinced that he has significant pulmonary embolism. There was a lot of motion artifact and volume averaging on the CT chest. Before subjecting him to long-term anticoagulation, I would like to repeat CT chest. We will hydrate him prior to that. 2. Underlying chronic obstructive pulmonary disease with ongoing tobaccoism. 3. Ischemic cardiomyopathy with an EF of 25-30%, with prior history of bypass and multiple stents.now with EF of 50% 4. Underlying obesity with a BMI of 38. 5. Acute bronchitis. Plan . 1. Continue with present DuoNebs and Pulmicort. 2. Continue oral doxycycline. 3. Continue Plavix. 4. repeat CTA chest with no PE. dc heparin. 5. d/w EDUARDO MATIAS MD Sep 22, 2018 11:07
--- NOTE | 2018-09-22 11:30 | PDOC ---
PROGRESS NOTES Chief Complaint Chief Complaint Shortness of breath - repeat CTA shows no PE COPD with exacerbation Asthma - moderate persistent since age 8 per patient Chest pain with cardiac hx - coronary disease and previous bypass surgery with 4 prior stents and 2 BMS to saphenous vein graft to obtuse marginal 1 year ago who was admitted through the emergency room last evening with episodes of chest pain that resolved before arrival, was more shortness of breath. Negative trop and EKG, compliant with meds. Ischemic cardiomyopathy with reduced EF 25-30% History of tobacco use - quit just prior to admission History of Present Illness History of Present Illness Mr. Osborne presented with shortness of breath and chest pain. Initial CTA showed possible small pulmonary emboli, repeat CTA shows no evidence of PE. Likely COPD exacerbation. Patient seen and examined at bedside, currently on RA. Patient continues to complain of mild shortness of breath. Denies fever, chills, chest pain. Pulm following. Vitals Vitals Vital Signs Date Time Temp Pulse Resp B/P (MAP) Pulse Ox O2 Delivery O2 Flow Rate FiO2 09/22/18 11:03 Room Air 09/22/18 09:20 97 119/74 09/22/18 07:11 92 09/22/18 07:00 98.5 18 98.5 Physical Exam General: Alert, Oriented X3, Cooperative, No acute distress Heart: Regular rate, No murmurs Lungs: Clear, Other (mild shortness of breath) Abdomen: Normal bowel sounds, Soft, No tenderness, No hepatosplenomegaly, No masses Extremities: No clubbing, No cyanosis, No edema, Normal pulses, No tenderness/ swelling Skin: No rashes, No significant lesion Labs LABS Laboratory Tests Test 09/21/18 12:05 09/21/18 18:50 09/21/18 23:45 09/22/18 05:45 Heparin Anti-Xa Act, Unfractionated 0.96 IU/mL (0.30-0.70) 0.99 IU/mL (0.30-0.70) 0.87 IU/mL (0.30-0.70) 0.54 IU/mL (0.30-0.70) Ccqfc-4-Qtxqgpvohdl 156 mg/dL (90-200) White Blood Count 10.9 x10^3/uL (4.0-11.0) Red Blood Count 4.39 x10^6/uL (4.30-5.70) Hemoglobin 14.3 g/dL (13.0-17.5) Hematocrit 40.5 % (39.0-53.0) Mean Corpuscular Volume 92 fL (79-100) Mean Corpuscular Hemoglobin 33 pg (25-35) Mean Corpuscular Hemoglobin Concent 35 g/dL (31-37) Red Cell Distribution Width 13.4 % (11.5-14.5) Platelet Count 149 x10^3/uL (140-400) Sodium Level 139 mmol/L (136-145) Potassium Level 4.1 mmol/L (3.5-5.1) Chloride Level 103 mmol/L (98-107) Carbon Dioxide Level 25 mmol/L (21-32) Anion Gap 11 (6-14) Blood Urea Nitrogen 24 mg/dL (8-26) Creatinine 1.2 mg/dL (0.7-1.3) Estimated GFR (Cockcroft-Gault) 63.1 Glucose Level 104 mg/dL (70-99) Calcium Level 8.2 mg/dL (8.5-10.1) Review of Systems Review of Systems Reports mild shortness of breath Denies chest pain Assessment and Plan Assessmemt and Plan Problems Medical Problems: (1) Pulmonary embolism Status: Acute Assessment: Shortness of breath - repeat CTA shows no PE COPD with exacerbation Asthma - moderate persistent since age 8 per patient Chest pain with cardiac hx - coronary disease and previous bypass surgery with 4 prior stents and 2 BMS to saphenous vein graft to obtuse marginal 1 year ago who was admitted through the emergency room last evening with episodes of chest pain that resolved before arrival, was more shortness of breath. Negative trop and EKG, compliant with meds. Ischemic cardiomyopathy with reduced EF 25-30% History of tobacco use - quit just prior to admission Plan: Repeat CTA shows no evidence of PE, pulmonary following Heparin dc'ed Continue doxycycline Hope to discharge tomorrow if pulmonary agrees Continue DuoNebs and plavix Review labs in the am Monitor respiratory status Comment Review of Relevant I have reviewed the following items josefina (where applicable) has been applied. Labs Laboratory Tests Test 09/20/18 21:43 09/20/18 23:43 09/21/18 00:07 09/21/18 05:00 White Blood Count 11.1 x10^3/uL (4.0-11.0) Red Blood Count 4.74 x10^6/uL (4.30-5.70) Hemoglobin 15.2 g/dL (13.0-17.5) Hematocrit 43.5 % (39.0-53.0) Mean Corpuscular Volume 92 fL (79-100) Mean Corpuscular Hemoglobin 32 pg (25-35) Mean Corpuscular Hemoglobin Concent 35 g/dL (31-37) Red Cell Distribution Width 13.4 % (11.5-14.5) Platelet Count 168 x10^3/uL (140-400) Neutrophils (%) (Auto) 75 % (31-73) Lymphocytes (%) (Auto) 12 % (24-48) Monocytes (%) (Auto) 9 % (0-9) Eosinophils (%) (Auto) 3 % (0-3) Basophils (%) (Auto) 1 % (0-3) Neutrophils # (Auto) 8.3 x10^3uL (1.8-7.7) Lymphocytes # (Auto) 1.4 x10^3/uL (1.0-4.8) Monocytes # (Auto) 1.0 x10^3/uL (0.0-1.1) Eosinophils # (Auto) 0.3 x10^3/uL (0.0-0.7) Basophils # (Auto) 0.1 x10^3/uL (0.0-0.2) Prothrombin Time 14.3 SEC (11.7-14.0) Prothromb Time International Ratio 1.1 (0.8-1.1) Sodium Level 140 mmol/L (136-145) Potassium Level 3.9 mmol/L (3.5-5.1) Chloride Level 105 mmol/L (98-107) Carbon Dioxide Level 25 mmol/L (21-32) Anion Gap 10 (6-14) Blood Urea Nitrogen 28 mg/dL (8-26) Creatinine 1.3 mg/dL (0.7-1.3) Estimated GFR (Cockcroft-Gault) 57.5 BUN/Creatinine Ratio 22 (6-20) Glucose Level 102 mg/dL (70-99) Lactic Acid Level 1.8 mmol/L (0.4-2.0) Calcium Level 8.2 mg/dL (8.5-10.1) Total Bilirubin 0.5 mg/dL (0.2-1.0) Aspartate Amino Transf (AST/SGOT) 32 U/L (15-37) Alanine Aminotransferase (ALT/SGPT) 48 U/L (16-63) Alkaline Phosphatase 88 U/L (46-116) Troponin I Quantitative < 0.017 ng/mL (0.000-0.055) LI-Pio-O-Type Natriuretic Peptide 212 pg/mL (0-124) Total Protein 6.9 g/dL (6.4-8.2) Albumin 3.9 g/dL (3.4-5.0) Albumin/Globulin Ratio 1.3 (1.0-1.7) Urine Collection Type Unknown Urine Color Yellow Urine Clarity Clear Urine pH 7.5 Urine Specific [place] >=1.030 Urine Protein Negative mg/dL (NEG-TRACE) Urine Glucose (UA) Negative mg/dL (NEG) Urine Ketones (Stick) Trace mg/dL (NEG) Urine Blood Negative (NEG) Urine Nitrite Negative (NEG) Urine Bilirubin Negative (NEG) Urine Urobilinogen Dipstick 1.0 mg/dL (0.2 mg/dL) Urine Leukocyte Esterase Negative (NEG) Urine RBC 0 /HPF (0-2) Urine WBC 0 /HPF (0-4) Urine Squamous Epithelial Cells Few /LPF Urine Bacteria 0 /HPF (0-FEW) Urine Mucus Slight /LPF Urine Opiates Screen Neg (NEG) Urine Methadone Screen Neg (NEG) Urine Barbiturates Neg (NEG) Urine Phencyclidine Screen Neg (NEG) Urine Amphetamine/Methamphetamine Neg (NEG) Urine Benzodiazepines Screen Neg (NEG) Urine Cocaine Screen Neg (NEG) Urine Cannabinoids Screen Neg (NEG) Urine Ethyl Alcohol Neg (NEG) Influenza Type A Antigen Negative (NEGATIVE) Influenza Type B Antigen Negative (NEGATIVE) Nasal Screen MRSA (PCR) Positive (Negative) Test 09/21/18 05:50 09/21/18 12:05 09/21/18 18:50 09/21/18 23:45 Heparin Anti-Xa Act, Unfractionated 0.67 IU/mL (0.30-0.70) 0.96 IU/mL (0.30-0.70) 0.99 IU/mL (0.30-0.70) 0.87 IU/mL (0.30-0.70) Troponin I Quantitative < 0.017 ng/mL (0.000-0.055) Ddont-1-Bpmaazwaefv 156 mg/dL (90-200) Test 09/22/18 05:45 White Blood Count 10.9 x10^3/uL (4.0-11.0) Red Blood Count 4.39 x10^6/uL (4.30-5.70) Hemoglobin 14.3 g/dL (13.0-17.5) Hematocrit 40.5 % (39.0-53.0) Mean Corpuscular Volume 92 fL (79-100) Mean Corpuscular Hemoglobin 33 pg (25-35) Mean Corpuscular Hemoglobin Concent 35 g/dL (31-37) Red Cell Distribution Width 13.4 % (11.5-14.5) Platelet Count 149 x10^3/uL (140-400) Heparin Anti-Xa Act, Unfractionated 0.54 IU/mL (0.30-0.70) Sodium Level 139 mmol/L (136-145) Potassium Level 4.1 mmol/L (3.5-5.1) Chloride Level 103 mmol/L (98-107) Carbon Dioxide Level 25 mmol/L (21-32) Anion Gap 11 (6-14) Blood Urea Nitrogen 24 mg/dL (8-26) Creatinine 1.2 mg/dL (0.7-1.3) Estimated GFR (Cockcroft-Gault) 63.1 Glucose Level 104 mg/dL (70-99) Calcium Level 8.2 mg/dL (8.5-10.1) Laboratory Tests Test 09/21/18 12:05 09/21/18 18:50 09/21/18 23:45 09/22/18 05:45 Heparin Anti-Xa Act, Unfractionated 0.96 IU/mL (0.30-0.70) 0.99 IU/mL (0.30-0.70) 0.87 IU/mL (0.30-0.70) 0.54 IU/mL (0.30-0.70) Xmuuf-3-Vqukrlvqysz 156 mg/dL (90-200) White Blood Count 10.9 x10^3/uL (4.0-11.0) Red Blood Count 4.39 x10^6/uL (4.30-5.70) Hemoglobin 14.3 g/dL (13.0-17.5) Hematocrit 40.5 % (39.0-53.0) Mean Corpuscular Volume 92 fL (79-100) Mean Corpuscular Hemoglobin 33 pg (25-35) Mean Corpuscular Hemoglobin Concent 35 g/dL (31-37) Red Cell Distribution Width 13.4 % (11.5-14.5) Platelet Count 149 x10^3/uL (140-400) Sodium Level 139 mmol/L (136-145) Potassium Level 4.1 mmol/L (3.5-5.1) Chloride Level 103 mmol/L (98-107) Carbon Dioxide Level 25 mmol/L (21-32) Anion Gap 11 (6-14) Blood Urea Nitrogen 24 mg/dL (8-26) Creatinine 1.2 mg/dL (0.7-1.3) Estimated GFR (Cockcroft-Gault) 63.1 Glucose Level 104 mg/dL (70-99) Calcium Level 8.2 mg/dL (8.5-10.1) Microbiology 09/20/18 Blood Culture - Preliminary, Resulted NO GROWTH AFTER 1 DAY Medications Current Medications Albuterol/ Ipratropium (Duoneb) 3 ml 1X ONCE NEB Last administered on at 21:16; Start 09/20/18 at 21:15; Stop 09/20/18 at 21:16; Status DC Methylprednisolone Sodium Succinate (SOLU-Medrol 125MG VIAL) 125 mg 1X ONCE IV Last administered on 09/20/18at 22:11; Start 09/20/18 at 22:00; Stop 09/20/18 at 22:01; Status DC Doxycycline Hyclate 100 mg/ Dextrose 100 ml @ 50 mls/hr 1X ONCE IV Last administered on 09/20/18at 22:46; Start 09/20/18 at 22:30; Stop 09/21/18 at 00:29 ; Status DC Ceftriaxone Sodium (Rocephin) 1 gm 1X ONCE IVP Last administered on 09/20/18at 22:43; Start 09/20/18 at 22:30; Stop 09/20/18 at 22:31; Status DC Iohexol (Omnipaque 350 Mg/ml) 100 ml 1X ONCE IV Last administered on at 23:08; Start 09/20/18 at 23:00; Stop 09/20/18 at 23:01; Status DC Info (CONTRAST GIVEN -- Rx MONITORING) 1 each PRN DAILY PRN MC SEE COMMENTS; Start 09/20/18 at 22:30; Stop 09/22/18 at 22:29 Albuterol/ Ipratropium (Duoneb) 3 ml RTQID NEB Last administered on 09/21/18at 20:02; Start 09/21/18 at 08:00; Stop 09/22/18 at 07:59; Status DC Rivaroxaban (Xarelto) 15 mg 1X STAT PO ; Start 09/20/18 at 23:53; Stop at 23:57; Status DC Heparin Sodium/ Dextrose 500 ml @ 0 mls/hr CONT PRN IV SEE I/O RECORD Last administered on 09/22/18at 03:03; Start 09/21/18 at 00:00; Stop 09/22/18 at 08:33 ; Status DC Heparin Sodium (Porcine) (Heparin Sodium) 3,550 unit PRN Q6HRS PRN IV FOR UFH LEVEL LESS THAN 0.2; Start 09/21/18 at 00:00; Stop 09/22/18 at 08:32; Status DC Heparin Sodium (Porcine) (Heparin Sodium) 1,750 unit PRN Q6HRS PRN IV FOR UFH LEVEL 0.2 - 0.29; Start 09/21/18 at 00:00; Stop 09/22/18 at 08:32; Status DC Info (Anti-Coagulation Monitoring By Pharmacy) 1 each PRN DAILY PRN MC SEE COMMENTS Last administered on 09/21/18at 14:32; Start 09/21/18 at 00:15; Stop at 08:32; Status DC Influenza Virus Vaccine (Afluria Trivalent [id number] Syringe) 0.5 ml ONCE ONCE VAX IM Last administered on 09/21/18at 11:23; Start 09/21/18 at 09:00; Stop at 09:01; Status DC Throat Lozenges (Cepacol Sore Throat Lozenge) 1 marry PRN Q2HRS PRN PO SORE THROAT Last administered on 3/19/19at 15:53; Start 09/21/18 at 11:15 Guaifenesin (Robitussin) 200 mg PRN Q4HRS PRN PO COUGH Last administered on 15:53; Start 09/21/18 at 11:15 Aspirin (Ecotrin) 325 mg DAILYWBKFT PO Last administered on 09/22/18 09:20; Start 09/21/18 at 12:00 Atorvastatin Calcium (Lipitor) 20 mg QHS PO Last administered on 09/21/18 21: 35; Start 09/21/18 at 21:00 Clopidogrel Bisulfate (Plavix) 75 mg DAILY PO Last administered on 09/22/18 09 :20; Start 09/21/18 at 12:00 Lisinopril (Prinivil) 10 mg DAILY PO Last administered on 09/22/18 09:20; Start 09/21/18 at 11:45 Metoprolol Tartrate (Lopressor) 50 mg DAILY PO Last administered on 09/22/18 09:19; Start 09/21/18 at 11:45 Pantoprazole Sodium (Protonix) 40 mg DAILYAC PO Last administered on 09/22/18 05:53; Start 09/21/18 at 12:00 Albuterol/ Ipratropium (Duoneb) 3 ml RTQID NEB Last administered on 09/22/18 11:03; Start 09/21/18 at 12:00 Budesonide (Pulmicort) 0.5 mg RTBID NEB Last administered on 09/22/18 07:11; Start 09/21/18 at 12:00 Doxycycline Hyclate 100 mg/ Dextrose 100 ml @ 50 mls/hr Q12HR IV Last administered on 09/22/18 09:20; Start 09/21/18 at 11:45 Sodium Chloride 500 ml @ 500 mls/hr 1X ONCE IV Last administered on 13:15; Start 09/21/18 at 13:15; Stop 09/21/18 at 14:14; Status DC Iohexol (Omnipaque 350 Mg/ml) 100 ml 1X ONCE IV Last administered on 13:54; Start 09/21/18 at 13:30; Stop 09/21/18 at 13:31; Status DC Info (CONTRAST GIVEN -- Rx MONITORING) 1 each PRN DAILY PRN MC SEE COMMENTS; Start 09/21/18 at 13:30; Stop 09/23/18 at 13:29 Tramadol HCl (Ultram) 50 mg PRN Q6HRS PRN PO PAIN Last administered on at 09:18; Start 09/21/18 at 19:00 Guaifenesin/ Codeine Phosphate (Robitussin Ac) 5 ml PRN Q6HRS PRN PO COUGH Last administered on 09/22/18 09:18; Start 09/21/18 at 19:00 Active Scripts Active Azithromycin Tablet (Azithromycin) 250 Mg Tablet 250 Mg PO DAILY 3 Days Aspirin Ec (Aspirin) 325 Mg Tablet. 325 Mg PO DAILYWBKFT 30 Days Plavix (Clopidogrel Bisulfate) 75 Mg Tablet 1 Tab PO DAILY Atorvastatin Calcium 20 Mg Tablet 20 Mg PO QHS Reported Lisinopril 10 Mg Tablet 1 Tab PO DAILY Omeprazole 20 Mg Capsule. 1 Cap PO DAILY Metoprolol Tartrate 50 Mg Tablet 1 Tab PO DAILY Vitals/I & O Vital Sign - Last 24 Hours 09/21/18 09/21/18 09/21/18 09/21/18 11:32 12:55 12:56 14:40 Temp 97.6 97.6 Pulse 84 84 105 Resp 20 B/P (MAP) 149/78 149/78 146/80 (102) Pulse Ox 93 O2 Delivery Room Air Room Air 09/21/18 09/21/18 09/21/18 09/21/18 15:34 19:00 19:32 20:00 Temp 98.3 98.3 Pulse 87 Resp 18 18 B/P (MAP) 123/79 (94) Pulse Ox 92 O2 Delivery Room Air Room Air Room Air Room Air 09/21/18 09/21/18 09/22/18 09/22/18 21:48 22:49 03:00 07:00 Temp 98.4 98.1 98.5 98.4 98.1 98.5 Pulse 82 70 97 Resp 16 18 18 18 B/P (MAP) 125/59 (81) 119/52 (74) 119/74 (89) Pulse Ox 94 92 90 O2 Delivery Room Air Room Air Room Air Room Air 09/22/18 09/22/18 09/22/18 09/22/18 07:11 09:19 09:20 11:03 Pulse 97 97 B/P (MAP) 119/74 119/74 Pulse Ox 92 O2 Delivery Room Air Room Air Intake and Output 09/21/18 09/21/18 09/22/18 15:00 23:00 07:00 Intake Total 260 ml Output Total 1 ml Balance 259 ml JACKY DEXTER III DO Sep 22, 2018 11:30
--- NOTE | 2018-09-22 14:04 | NUR ---
pt removed tele monitor and refuses to have it replaced stating "i'll know if i'm having a heart attack before you guys will".
--- NOTE | 2018-09-22 16:51 | NUR ---
report given to DOREEN Perez, who assumed care at this time.
[2018-09-22] MEDS: guaiFENesin ORAL 200 MG/10 ML LIQUID. PO PRN (19:54)
[2018-09-22] MEDS: BENZOCAINE/MENTHOL LOZENGE. PO PRN (19:54)
[2018-09-22] MEDS: LACTOBACILLUS RHAMNOSUS GG 1 CAPSULE. PO SCH (21:38)
[2018-09-22] MEDS: ATORVASTATIN CALCIUM 20 MG TABLET PO SCH (21:38)
[2018-09-22] MEDS ORDERED: MAG HYDROX/ALUMINUM HYD/SIMETH 30 ML ORAL.SUSP PO PRN (22:45)
[2018-09-22] MEDS ORDERED: CALCIUM CARBONATE 500 MG TAB.CHEW PO PRN (22:45)
[2018-09-22] MEDS: DOCUSATE SODIUM 100 MG CAPSULE. PO PRN (23:00)
[2018-09-23 05:03] VITALS: BP 141/93
[2018-09-23 07:00] VITALS: BP 114/61
[2018-09-23] MEDS: PANTOPRAZOLE 40 MG TABLET.DR. PO SCH (07:04)
[2018-09-23] MEDS: IPRATRPIUM/ALBUTEROL 0.5/2.5MG 3 ML NEBU. NEB SCH ×4 (07:39→19:33)
[2018-09-23] MEDS: BUDESONIDE 0.5 MG/2 ML NEBU. NEB SCH ×2 (07:39→19:33)
[2018-09-23] MEDS: CLOPIDOGREL BISULFATE 75 MG TABLET PO SCH (08:17)
[2018-09-23] MEDS: LACTOBACILLUS RHAMNOSUS GG 1 CAPSULE. PO SCH ×2 (08:17→20:22)
[2018-09-23] MEDS: LISINOPRIL 10 MG TABLET PO SCH (08:17)
[2018-09-23] MEDS: DOXYCYCLINE HYCLATE 100 MG in IV DEXTROSE 5% 100ML 100 ML IV SCH (08:17)
[2018-09-23] MEDS: METOPROLOL TART IMMED RELEASE 50 MG TABLET. PO SCH (08:18)
[2018-09-23] MEDS: ASPIRIN ENTERIC COATED 325 MG TABLET.DR. PO SCH (08:18)
[2018-09-23] MEDS: DOCUSATE SODIUM 100 MG CAPSULE. PO PRN (08:22)
--- NOTE | 2018-09-23 10:29 | PDOC ---
PROGRESS NOTES Chief Complaint Chief Complaint Shortness of breath - repeat CTA shows no PE COPD with exacerbation Asthma - moderate persistent since age 8 per patient Chest pain with cardiac hx - coronary disease and previous bypass surgery with 4 prior stents and 2 BMS to saphenous vein graft to obtuse marginal 1 year ago who was admitted through the emergency room last evening with episodes of chest pain that resolved before arrival, was more shortness of breath. Negative trop and EKG, compliant with meds. Ischemic cardiomyopathy with reduced EF 25-30% History of tobacco use - quit just prior to admission History of Present Illness History of Present Illness Mr. Osborne presented with shortness of breath and chest pain. Initial CTA showed possible small pulmonary emboli, repeat CTA shows no evidence of PE. Likely COPD exacerbation. Patient seen and examined at bedside Currently breathing comfortably on RA. He states he is feeling much better today and hopes to be discharged later today Denies fever, chills, chest pain. Pulm following. Vitals Vitals Vital Signs Date Time Temp Pulse Resp B/P (MAP) Pulse Ox O2 Delivery O2 Flow Rate FiO2 09/23/18 08:25 Room Air 09/23/18 08:18 88 114/61 09/23/18 07:00 98.2 17 92 98.2 Physical Exam General: Alert, Oriented X3, Cooperative, No acute distress Heart: Regular rate, No murmurs Lungs: Clear Abdomen: Normal bowel sounds, Soft, No tenderness, No hepatosplenomegaly, No masses Extremities: No clubbing, No cyanosis, No edema, Normal pulses, No tenderness/ swelling Skin: No rashes, No significant lesion Review of Systems Review of Systems Pt denies CP, SOB, HERNÁNDEZ, n/v/d Assessment and Plan Assessmemt and Plan Problems Medical Problems: (1) Pulmonary embolism Status: Acute Assessment: Shortness of breath - repeat CTA shows no PE COPD with exacerbation Asthma - moderate persistent since age 8 per patient Chest pain with cardiac hx - coronary disease and previous bypass surgery with 4 prior stents and 2 BMS to saphenous vein graft to obtuse marginal 1 year ago who was admitted through the emergency room last evening with episodes of chest pain that resolved before arrival, was more shortness of breath. Negative trop and EKG, compliant with meds. Ischemic cardiomyopathy with reduced EF 25-30% History of tobacco use - quit just prior to admission Plan: Hope to discharge today if pulmonary agrees Repeat CTA shows no evidence of PE, pulmonary following Heparin dc'ed Continue doxycycline Continue DuoNebs and plavix Monitor respiratory status Appreciate subspecialty recs Comment Review of Relevant I have reviewed the following items josefina (where applicable) has been applied. Labs Laboratory Tests Test 09/21/18 12:05 09/21/18 18:50 09/21/18 23:45 09/22/18 05:45 Heparin Anti-Xa Act, Unfractionated 0.96 IU/mL (0.30-0.70) 0.99 IU/mL (0.30-0.70) 0.87 IU/mL (0.30-0.70) 0.54 IU/mL (0.30-0.70) Ofqge-6-Rgifzsqnwmy 156 mg/dL (90-200) White Blood Count 10.9 x10^3/uL (4.0-11.0) Red Blood Count 4.39 x10^6/uL (4.30-5.70) Hemoglobin 14.3 g/dL (13.0-17.5) Hematocrit 40.5 % (39.0-53.0) Mean Corpuscular Volume 92 fL (79-100) Mean Corpuscular Hemoglobin 33 pg (25-35) Mean Corpuscular Hemoglobin Concent 35 g/dL (31-37) Red Cell Distribution Width 13.4 % (11.5-14.5) Platelet Count 149 x10^3/uL (140-400) Sodium Level 139 mmol/L (136-145) Potassium Level 4.1 mmol/L (3.5-5.1) Chloride Level 103 mmol/L (98-107) Carbon Dioxide Level 25 mmol/L (21-32) Anion Gap 11 (6-14) Blood Urea Nitrogen 24 mg/dL (8-26) Creatinine 1.2 mg/dL (0.7-1.3) Estimated GFR (Cockcroft-Gault) 63.1 Glucose Level 104 mg/dL (70-99) Calcium Level 8.2 mg/dL (8.5-10.1) Microbiology 09/20/18 Blood Culture - Preliminary, Resulted NO GROWTH AFTER 2 DAYS Medications Current Medications Albuterol/ Ipratropium (Duoneb) 3 ml 1X ONCE NEB Last administered on at 21:16; Start 09/20/18 at 21:15; Stop 09/20/18 at 21:16; Status DC Methylprednisolone Sodium Succinate (SOLU-Medrol 125MG VIAL) 125 mg 1X ONCE IV Last administered on 09/20/18at 22:11; Start 09/20/18 at 22:00; Stop 09/20/18 at 22:01; Status DC Doxycycline Hyclate 100 mg/ Dextrose 100 ml @ 50 mls/hr 1X ONCE IV Last administered on 09/20/18at 22:46; Start 09/20/18 at 22:30; Stop 09/21/18 at 00:29 ; Status DC Ceftriaxone Sodium (Rocephin) 1 gm 1X ONCE IVP Last administered on 09/20/18at 22:43; Start 09/20/18 at 22:30; Stop 09/20/18 at 22:31; Status DC Iohexol (Omnipaque 350 Mg/ml) 100 ml 1X ONCE IV Last administered on at 23:08; Start 09/20/18 at 23:00; Stop 09/20/18 at 23:01; Status DC Info (CONTRAST GIVEN -- Rx MONITORING) 1 each PRN DAILY PRN MC SEE COMMENTS; Start 09/20/18 at 22:30; Stop 09/22/18 at 15:29; Status DC Albuterol/ Ipratropium (Duoneb) 3 ml RTQID NEB Last administered on 09/21/18at 20:02; Start 09/21/18 at 08:00; Stop 09/22/18 at 07:59; Status DC Rivaroxaban (Xarelto) 15 mg 1X STAT PO ; Start 09/20/18 at 23:53; Stop at 23:57; Status DC Heparin Sodium/ Dextrose 500 ml @ 0 mls/hr CONT PRN IV SEE I/O RECORD Last administered on 09/22/18at 03:03; Start 09/21/18 at 00:00; Stop 09/22/18 at 08:33 ; Status DC Heparin Sodium (Porcine) (Heparin Sodium) 3,550 unit PRN Q6HRS PRN IV FOR UFH LEVEL LESS THAN 0.2; Start 09/21/18 at 00:00; Stop 09/22/18 at 08:32; Status DC Heparin Sodium (Porcine) (Heparin Sodium) 1,750 unit PRN Q6HRS PRN IV FOR UFH LEVEL 0.2 - 0.29; Start 09/21/18 at 00:00; Stop 09/22/18 at 08:32; Status DC Info (Anti-Coagulation Monitoring By Pharmacy) 1 each PRN DAILY PRN MC SEE COMMENTS Last administered on 09/21/18 14:32; Start 09/21/18 at 00:15; Stop at 08:32; Status DC Influenza Virus Vaccine (Afluria Trivalent [id number] Syringe) 0.5 ml ONCE ONCE VAX IM Last administered on 09/21/18 11:23; Start 09/21/18 at 09:00; Stop at 09:01; Status DC Throat Lozenges (Cepacol Sore Throat Lozenge) 1 marry PRN Q2HRS PRN PO SORE THROAT Last administered on 09/22/18 19:54; Start 09/21/18 at 11:15 Guaifenesin (Robitussin) 200 mg PRN Q4HRS PRN PO COUGH 2ND CHOICE Last administered on 09/22/18 19:54; Start 09/21/18 at 11:15 Aspirin (Ecotrin) 325 mg DAILYWBKFT PO Last administered on 09/23/18 08:18; Start 09/21/18 at 12:00 Atorvastatin Calcium (Lipitor) 20 mg QHS PO Last administered on 09/22/18 21: 38; Start 09/21/18 at 21:00 Clopidogrel Bisulfate (Plavix) 75 mg DAILY PO Last administered on 09/23/18 08 :17; Start 09/21/18 at 12:00 Lisinopril (Prinivil) 10 mg DAILY PO Last administered on 09/23/18 08:17; Start 09/21/18 at 11:45 Metoprolol Tartrate (Lopressor) 50 mg DAILY PO Last administered on 09/23/18 08:18; Start 09/21/18 at 11:45 Pantoprazole Sodium (Protonix) 40 mg DAILYAC PO Last administered on 09/23/18 07:04; Start 09/21/18 at 12:00 Albuterol/ Ipratropium (Duoneb) 3 ml RTQID NEB Last administered on 09/23/18 07:39; Start 09/21/18 at 12:00 Budesonide (Pulmicort) 0.5 mg RTBID NEB Last administered on 09/23/18 07:39; Start 09/21/18 at 12:00 Doxycycline Hyclate 100 mg/ Dextrose 100 ml @ 50 mls/hr Q12HR IV Last administered on 09/23/18 08:17; Start 09/21/18 at 11:45 Sodium Chloride 500 ml @ 500 mls/hr 1X ONCE IV Last administered on 13:15; Start 09/21/18 at 13:15; Stop 09/21/18 at 14:14; Status DC Iohexol (Omnipaque 350 Mg/ml) 100 ml 1X ONCE IV Last administered on 13:54; Start 09/21/18 at 13:30; Stop 09/21/18 at 13:31; Status DC Info (CONTRAST GIVEN -- Rx MONITORING) 1 each PRN DAILY PRN MC SEE COMMENTS; Start 09/21/18 at 13:30; Stop 09/23/18 at 13:29 Tramadol HCl (Ultram) 50 mg PRN Q6HRS PRN PO PAIN Last administered on 09:18; Start 09/21/18 at 19:00 Guaifenesin/ Codeine Phosphate (Robitussin Ac) 5 ml PRN Q6HRS PRN PO COUGH 1ST CHOICE Last administered on 09/22/18 09:18; Start 09/21/18 at 19:00 Lactobacillus Rhamnosus (Culturelle) 1 cap BID PO Last administered on 08:17; Start 09/22/18 at 21:00 Calcium Carbonate/ Glycine (Tums) 500 mg PRN Q4HRS PRN PO INDIGESTION Last administered on 09/22/18 23:00; Start 09/22/18 at 22:45 Al Hydroxide/Mg Hydroxide (Mylanta Plus Xs) 30 ml PRN Q8HRS PRN PO HEARTBURN / GAS; Start 09/22/18 at 22:45 Docusate Sodium (Colace) 100 mg PRN DAILY PRN PO CONSTIPATION Last administered on 09/23/18 08:22; Start 09/22/18 at 22:45 Active Scripts Active Azithromycin Tablet (Azithromycin) 250 Mg Tablet 250 Mg PO DAILY 3 Days Aspirin Ec (Aspirin) 325 Mg Tablet. 325 Mg PO DAILYWBKFT 30 Days Plavix (Clopidogrel Bisulfate) 75 Mg Tablet 1 Tab PO DAILY Atorvastatin Calcium 20 Mg Tablet 20 Mg PO QHS Reported Lisinopril 10 Mg Tablet 1 Tab PO DAILY Omeprazole 20 Mg Capsule. 1 Cap PO DAILY Metoprolol Tartrate 50 Mg Tablet 1 Tab PO DAILY Vitals/I & O Vital Sign - Last 24 Hours 09/22/18 09/22/18 09/22/18 09/22/18 11:03 11:28 12:00 14:50 Temp 98.5 98.5 Pulse 73 Resp 18 B/P (MAP) 112/60 (77) Pulse Ox 92 93 O2 Delivery Room Air Room Air Room Air Room Air 09/22/18 09/22/18 09/22/18 09/22/18 15:00 19:00 19:46 20:00 Temp 98.8 99.3 98.8 99.3 Pulse 76 80 Resp 17 20 B/P (MAP) 108/60 (76) 141/63 (89) Pulse Ox 92 94 O2 Delivery Room Air Room Air Room Air Room Air 09/22/18 09/22/18 09/23/18 09/23/18 23:01 23:02 05:03 07:00 Temp 98.4 98.4 98.0 98.2 98.4 98.4 98.0 98.2 Pulse 87 87 104 88 Resp 20 17 B/P (MAP) 120/73 (89) 120/73 (89) 141/93 (109) 114/61 (78) Pulse Ox 94 90 92 O2 Delivery Room Air Room Air Room Air 09/23/18 09/23/18 09/23/18 09/23/18 07:40 08:17 08:18 08:25 Pulse 88 88 B/P (MAP) 114/61 114/61 O2 Delivery Room Air Room Air Intake and Output 09/22/18 09/22/18 09/23/18 15:00 23:00 07:00 Intake Total 560 ml 180 ml Output Total 1 ml Balance 560 ml -1 ml 180 ml JACKY DEXTRE III DO Sep 23, 2018 10:29
[2018-09-23 11:00] VITALS: BP 124/58
--- NOTE | 2018-09-23 12:28 | PDOC ---
PULMONARY PROGRESS NOTES Subjective some soa with exertion cough with yellow sputum Vitals Vital Signs Date Time Temp Pulse Resp B/P (MAP) Pulse Ox O2 Delivery O2 Flow Rate FiO2 09/23/18 11:23 93 Room Air 09/23/18 11:00 98.3 85 17 124/58 (80) 98.3 ROS: No Chest Pain, No Increase Cough General: Alert, No acute distress Lungs: Clear Cardiovascular: S1, S2 Abdomen: Soft, Other (obese) Neuro Exam: Alert Extremities: Other (1+edema) Labs Laboratory Tests Test 09/21/18 18:50 09/21/18 23:45 09/22/18 05:45 Heparin Anti-Xa Act, Unfractionated 0.99 IU/mL (0.30-0.70) 0.87 IU/mL (0.30-0.70) 0.54 IU/mL (0.30-0.70) White Blood Count 10.9 x10^3/uL (4.0-11.0) Red Blood Count 4.39 x10^6/uL (4.30-5.70) Hemoglobin 14.3 g/dL (13.0-17.5) Hematocrit 40.5 % (39.0-53.0) Mean Corpuscular Volume 92 fL (79-100) Mean Corpuscular Hemoglobin 33 pg (25-35) Mean Corpuscular Hemoglobin Concent 35 g/dL (31-37) Red Cell Distribution Width 13.4 % (11.5-14.5) Platelet Count 149 x10^3/uL (140-400) Sodium Level 139 mmol/L (136-145) Potassium Level 4.1 mmol/L (3.5-5.1) Chloride Level 103 mmol/L (98-107) Carbon Dioxide Level 25 mmol/L (21-32) Anion Gap 11 (6-14) Blood Urea Nitrogen 24 mg/dL (8-26) Creatinine 1.2 mg/dL (0.7-1.3) Estimated GFR (Cockcroft-Gault) 63.1 Glucose Level 104 mg/dL (70-99) Calcium Level 8.2 mg/dL (8.5-10.1) Medications Active Scripts Medications Dose Route/Sig Max Daily Dose Days Date Category Lisinopril 10 Mg Tablet 1 Tab PO DAILY 3/19/19 Reported Omeprazole 20 Mg Capsule.dr 1 Cap PO DAILY 09/21/18 Reported Metoprolol Tartrate 50 Mg Tablet 1 Tab PO DAILY 09/21/18 Reported Azithromycin Tablet (Azithromycin) 250 Mg Tablet 250 Mg PO DAILY 3 09/16/17 Rx Aspirin Ec (Aspirin) 325 Mg Tablet. 325 Mg PO DAILYWBKFT 30 09/16/17 Rx Plavix (Clopidogrel Bisulfate) 75 Mg Tablet 1 Tab PO DAILY 02/25/17 Rx Atorvastatin Calcium 20 Mg Tablet 20 Mg PO QHS 10/04/16 Rx Impression . 1. Chronic exertional dyspnea with recent increase in a patient with an EF of 50% / grade II diastolic dysfunction and has a long history of tobacco use for at least 35 years. He had some wake chest pain. At this point, these symptoms could be related to combination of CHF and chronic obstructive pulmonary disease. I was not convinced that he has significant pulmonary embolism. There was a lot of motion artifact and volume averaging on the CT chest. Before subjecting him to long-term anticoagulation, repeated CT chest. NO PE 2. Underlying chronic obstructive pulmonary disease with ongoing tobaccoism. 3. Ischemic cardiomyopathy with an EF of 25-30%, with prior history of bypass and multiple stents.now with EF of 50% 4. Underlying obesity with a BMI of 38. 5. Acute bronchitis. Plan . 1. Continue with present DuoNebs and Pulmicort. 2. Continue oral doxycycline. 3. Continue Plavix. 4. repeat CTA chest with no PE. off heparin. 5. DC plans per PCP EDUARDO RUSSO MD Sep 23, 2018 12:28
[2018-09-23] MEDS ORDERED: MAGNESIUM CITRATE 296 ML SOLUTION. PO ONE (14:45)
[2018-09-23 15:00] VITALS: BP 123/76
[2018-09-23 19:00] VITALS: BP 137/82
[2018-09-23] MEDS: ATORVASTATIN CALCIUM 20 MG TABLET PO SCH (20:23)
[2018-09-23] MEDS: DOXYCYCLINE HYCLATE 100 MG TABLET PO SCH (20:23)
[2018-09-23 23:00] VITALS: BP 109/50
[2018-09-24 03:00] VITALS: BP 104/78
[2018-09-24 07:00] VITALS: BP 131/65
[2018-09-24] MEDS: PANTOPRAZOLE 40 MG TABLET.DR. PO SCH (07:20)
[2018-09-24] MEDS: METOPROLOL TART IMMED RELEASE 50 MG TABLET. PO SCH (08:14)
[2018-09-24] MEDS: LACTOBACILLUS RHAMNOSUS GG 1 CAPSULE. PO SCH (08:14)
[2018-09-24] MEDS: ASPIRIN ENTERIC COATED 325 MG TABLET.DR. PO SCH (08:14)
[2018-09-24 08:15] VITALS: BP 131/65
[2018-09-24] MEDS: DOXYCYCLINE HYCLATE 100 MG TABLET PO SCH (08:15)
[2018-09-24] MEDS: LISINOPRIL 10 MG TABLET PO SCH (08:15)
[2018-09-24] MEDS: CLOPIDOGREL BISULFATE 75 MG TABLET PO SCH (08:15)
[2018-09-24] MEDS: IPRATRPIUM/ALBUTEROL 0.5/2.5MG 3 ML NEBU. NEB SCH (08:28)
[2018-09-24] MEDS: BUDESONIDE 0.5 MG/2 ML NEBU. NEB SCH (08:29)
[2018-09-24] MEDS ORDERED: POLYETHYLENE GLYCOL 3350 17 GM PACKET. PO SCH (09:00)
--- NOTE | 2018-09-24 10:10 | NUR ---
Discharge Note: LUZMARIA LARSON Discharge instructions and discharge home medications reviewed with Patient and a copy given. All questions have been answered and understanding verbalized. The following instructions and handouts were given: discharge instructions, new prescription, education and follow up information. Discontinued lines and drains: Peripheral IV discontinued intact. Patient discharged to Home or Self Care with Friend via Wheelchair off unit by RN.
--- NOTE | 2018-09-24 12:03 | DS ---
DATE OF DISCHARGE: 09/24/2018 ADMISSION DIAGNOSES: Chronic obstructive pulmonary disease exacerbation with possible pulmonary embolism. DISCHARGE DIAGNOSES: Resolving respiratory failure, resolving chronic obstructive pulmonary disease exacerbation. HOSPITAL COURSE: The patient is a pleasant middle-aged male who had COPD exacerbation and respiratory failure. There was some concern he could have PE as well. He was initially treated with steroids, breathing treatments, oxygen, antibiotics and heparin drip. Apparently, he does have some tiny PEs, but the heparin drip has now been discontinued. Clinically, he has done much better. I saw him and examined him this morning. His heart tones were normal. His lungs were much clear. We plan to discharge with close outpatient followup. DISPOSITION: Home. ACTIVITY: As tolerated. DIET: Low sodium. MEDICATIONS: Please see the MRAD. TOTAL TIME: 33 minutes. JACKY DEXTER DO DR: COLE/zoie JOB#: [id number] / [id number]
== END 2018-09-24 10:11 | disposition home or self-care (01) | DRG 871 ==
LOC: ER 20:57 → 5 NORTH 23:00
PROVIDERS: ADMIT Internal Medicine; ATTEND Internal Medicine
DX: A41.9 Sepsis, unspecified organism (principal); J96.90 Respiratory failure, unspecified, unspecified whether with hypoxia or hypercapnia; J44.1 Chronic obstructive pulmonary disease with (acute) exacerbation; J44.0 Chronic obstructive pulmonary disease with (acute) lower respiratory infection; I11.0 Hypertensive heart disease with heart failure; E66.9 Obesity, unspecified; Z68.38 Body mass index [BMI] 38.0-38.9, adult; J20.9 Acute bronchitis, unspecified; E78.5 Hyperlipidemia, unspecified; F17.210 Nicotine dependence, cigarettes, uncomplicated; I25.10 Atherosclerotic heart disease of native coronary artery without angina pectoris; M54.5 Low back pain; F41.9 Anxiety disorder, unspecified; M19.90 Unspecified osteoarthritis, unspecified site; I25.5 Ischemic cardiomyopathy; I50.9 Heart failure, unspecified; J45.40 Moderate persistent asthma, uncomplicated; Z79.01 Long term (current) use of anticoagulants; Z80.1 Family history of malignant neoplasm of trachea, bronchus and lung; Z82.5 Family history of asthma and other chronic lower respiratory diseases; Z95.1 Presence of aortocoronary bypass graft; Z87.01 Personal history of pneumonia (recurrent); Z90.49 Acquired absence of other specified parts of digestive tract
CPT/HCPCS: 36415; 71045; 71275; 80048; 80053; 80307; 81001; 82103; 83605; 83880; 84484; 85025; 85027; 85520; 85610; 87040; 87641; 87804; 90471; 90756; 93005; 94640; 94760; 96374; J0696; J2930; J3490; J7040; J7620; J7626; Q9967; 99285-25; Q2035

== ENCOUNTER → 2019-02-18 | Day surgery (SDC) | payer OTHER ==
[~2019-02-18] MED LIST changes: +FURO-69 PO; +IV RINGERS,LACTATED 1000ML 1,000 ML IV SCH; +METO25TA2 PO; +METO50TA6 PO; +OMEP20CA10 PO; +PROPOFOL 20 ML IV ONE
[2019-02-18 09:00] VITALS: BP 143/83
== END ==
LOC: SURG 07:11
PROVIDERS: ATTEND Internal Medicine Gastroenterology
DX: Z12.11 Encounter for screening for malignant neoplasm of colon (principal); K57.30 Diverticulosis of large intestine without perforation or abscess without bleeding; K64.0 First degree hemorrhoids; F41.9 Anxiety disorder, unspecified; J45.909 Unspecified asthma, uncomplicated; I11.0 Hypertensive heart disease with heart failure; I50.9 Heart failure, unspecified; K21.9 Gastro-esophageal reflux disease without esophagitis; E78.00 Pure hypercholesterolemia, unspecified; I25.2 Old myocardial infarction; Z72.89 Other problems related to lifestyle; F15.90 Other stimulant use, unspecified, uncomplicated; Z95.1 Presence of aortocoronary bypass graft; Z98.890 Other specified postprocedural states
CPT/HCPCS: 45378; J2704

== ENCOUNTER 2019-04-08 05:07 | Inpatient (IN) | payer SELFPAY ==
[~2019-04-08] VITALS: Ht 176.5 cm; Wt 122.2 kg
[~2019-04-08 05:07] MED LIST changes: -IV RINGERS,LACTATED 1000ML 1,000 ML IV SCH; -PROPOFOL 20 ML IV ONE
[2019-04-08] MEDS: ASPIRIN CHEWABLE 81 MG TABLET. PO ONE ×2 (05:15→05:32)
--- NOTE | 2019-04-08 05:27 | PHYS DOC ---
Past Medical History Past Medical History: Asthma, Bronchitis, CAD, COPD, Hypertension, MS Additional Past Medical Histor: 19 heart attacks Past Surgical History: Angioplasty, Appendectomy, Coronary Bypass Surgery Additional Past Surgical Histo: Left shoulder replacementx2 Alcohol Use: Occasionally Drug Use: None The HEART Score for CP Pts HEART Score for Chest Pain: HEART Score for Chest Pain Response (Comments) Value History Slighlty/Non-Suspicious 0 ECG Nonspecific Repolarizatio 1 Age >45 - < 65 1 Risk Factors >3 Risk Factors or Hx CAD 2 Total 4 Risk Factors: Risk Factors: DM, Current or recent (<one month) smoker, HTN, HLP, family history of CAD, obesity. Risk Scores: Score 0 - 3: 2.5% MACE over next 6 weeks - Discharge Home Score 4 - 6: 20.3% MACE over next 6 weeks - Admit for Clinical Observation Score 7 - 10: 72.7% MACE over next 6 weeks - Early Invasive Strategies Adult General Chief Complaint Chief Complaint: CHEST PAIN HPI HPI 53-year-old male with history of coronary artery disease, COPD, hypertension, MS, CABG who presents with intermittent chest pain over the last couple days. Patient describes chest pain that radiates to his left shoulder as well as left jaw. He describes shortness of breath, diaphoresis. He denies any nausea, vomiting. Patient states shortness of breath and pain are worse with exertion. He states his last MS was approximately 18 months ago. Patient denies any tobacco use, he does drink alcohol occasionally. Patient is hypertensive upon arrival blood pressure 173/84. Review of Systems Review of Systems Constitutional: Denies fever or chills [] Respiratory: Denies cough or shortness of breath [] Cardiovascular: No additional information not addressed in HPI [] GI: Positive nausea, no vomiting, bloody stools or diarrhea [] : Denies dysuria or hematuria [] Musculoskeletal: Left shoulder pain Integument: Denies rash or skin lesions [] Neurologic: Denies headache, focal weakness or sensory changes [] All other systems were reviewed and found to be within normal limits, except as documented in this note. Current Medications Current Medications Current Medications Medications (Trade) Dose Ordered Sig/[place] Start Time Stop Time Status Last Admin Dose Admin Aspirin (Children'S Aspirin) 324 mg 1X ONCE 04/08/19 05:15 04/08/19 05:17 DC Nitroglycerin (Nitrostat) 0.4 mg PRN Q5MIN PRN 04/08/19 05:15 04/09/19 05:14 04/08/19 05:32 0.4 MG Allergies Allergies Allergies Coded Allergies Type Severity Reaction Last Updated Verified I S O L A T I O N *CONTACT* Allergy Unknown 02/18/19 Yes No Known Medication Allergies Allergy Unknown 02/18/19 Yes Physical Exam Physical Exam Constitutional: Well developed, well nourished, no acute distress, non-toxic appearance. [] HENT: Normocephalic, atraumatic, bilateral external ears normal, oropharynx moist, no oral exudates, nose normal. [] Eyes: PERRLA, EOMI, conjunctiva normal, no discharge. [] Neck: Normal range of motion, no tenderness, supple, no stridor. [] Cardiovascular:Heart rate regular rhythm, no murmur [] Lungs & Thorax: Bilateral breath sounds clear to auscultation [] Abdomen: Bowel sounds normal, soft, no tenderness, no masses, no pulsatile masses. [] Skin: Warm, dry, no erythema, no rash. [] Back: No tenderness, no CVA tenderness. [] Extremities: No tenderness, no cyanosis, no edema. [] Neurologic: Alert and oriented X 3, no focal deficits noted. [] Psychologic: Affect normal, judgement normal, mood normal. [] Current Patient Data Vital Signs Vital Signs Date Time Temp Pulse Resp B/P (MAP) Pulse Ox O2 Delivery O2 Flow Rate FiO2 04/08/19 05:32 63 173/84 04/08/19 05:08 97.8 20 97 Room Air 97.8 Lab Values Laboratory Tests Test 04/08/19 05:15 Sodium Level 141 mmol/L (136-145) Potassium Level 4.6 mmol/L (3.5-5.1) Chloride Level 106 mmol/L (98-107) Carbon Dioxide Level 30 mmol/L (21-32) Anion Gap 5 (6-14) L Blood Urea Nitrogen 18 mg/dL (8-26) Creatinine 1.3 mg/dL (0.7-1.3) Estimated GFR (Cockcroft-Gault) 57.3 BUN/Creatinine Ratio 14 (6-20) Glucose Level 106 mg/dL (70-99) H Calcium Level 9.2 mg/dL (8.5-10.1) Total Bilirubin 0.6 mg/dL (0.2-1.0) Aspartate Amino Transferase (AST) 22 U/L (15-37) Alanine Aminotransferase (ALT) 39 U/L (16-63) Alkaline Phosphatase 104 U/L (46-116) Troponin I Quantitative < 0.017 ng/mL (0.000-0.055) Total Protein 7.3 g/dL (6.4-8.2) Albumin 4.0 g/dL (3.4-5.0) Albumin/Globulin Ratio 1.2 (1.0-1.7) Laboratory Tests 04/08/19 05:15 EKG EKG EKG reviewed heart rate 61, no evidence of acute ST or T wave change, nonurgent EKG sinus rhythm.[] Interpretation Time: Interpretation time 0 513 Radiology/Procedures Radiology/Procedures [] Course & Med Decision Making Course & Med Decision Making Pertinent Labs and Imaging studies reviewed. (See chart for details) []53-year-old male with history of coronary artery disease, COPD, hypertension, MS, CABG who presents with intermittent chest pain over the last couple days. Patient describes chest pain that radiates to his left shoulder as well as left jaw. He describes shortness of breath, diaphoresis. He denies any nausea, vomiting. Patient states shortness of breath and pain are worse with exertion. He states his last MS was approximately 18 months ago. Patient denies any tobacco use, he does drink alcohol occasionally. Patient is hypertensive upon arrival blood pressure 173/84. Dragon Disclaimer Dragon Disclaimer This electronic medical record was generated, in whole or in part, using a voice recognition dictation system. Departure Departure Impression: Primary Impression: Chest pain Additional Impression: Hypertension Disposition: ADMITTED INPATIENT Admitting Physician: [facility]S Referrals: NO PCP (PCP) Problem Qualifiers Primary Impression: Chest pain Chest pain type: unspecified Qualified Codes: R07.9 - Chest pain, unspecified Additional Impression: Hypertension Hypertension type: essential hypertension Qualified Codes: I10 - Essential (primary) hypertension NAFISA GREENE MD Apr 08, 2019 05:27
[2019-04-08] MEDS: NITROGLYCERIN SUBLINGUAL 0.4 MG BOTTLE OF 25. SL PRN ×2 (05:32→05:49)
[2019-04-08 05:38] LABS: CALCIUM 9.2 mg/dL (8.5-10.1); CREATININE 1.3 mg/dL (0.7-1.3); GFR 57.3; POTASSIUM 4.6 mmol/L (3.5-5.1)
[2019-04-08 05:42] LABS: ALBUMIN/GLOBULIN RATIO 1.2 (1.0-1.7); TOTAL BILIRUBIN 0.6 mg/dL (0.2-1.0); TOTAL PROTEIN 7.3 g/dL (6.4-8.2)
[2019-04-08] MEDS ORDERED: NITROGLYCERIN SUBLINGUAL 0.4 MG BOTTLE OF 25. SL PRN (05:45)
[2019-04-08] MEDS ORDERED: ONDANSETRON PF 4 MG/2 ML VIAL. IV PRN (05:45)
--- NOTE | 2019-04-08 05:55 | RAD ---
EXAM: CHEST ONE VIEW. HISTORY: Chest pain. COMPARISON: 09/20/2018. FINDINGS: A frontal view of the chest is obtained. There are changes of coronary artery bypass grafting. There are emphysematous changes in the apices. There are no confluent infiltrates. There is no pneumothorax or pleural effusion. The heart is mildly enlarged. There are changes of left rotator cuff repair. IMPRESSION: 1. Chronic obstructive pulmonary disease. Mild cardiomegaly. Electronically signed by: Yony Bellamy MD (04/08/2019 5:52 AM) [facility]
[2019-04-08 05:57] LABS: BASO # 0.1 x10^3/uL (0.0-0.2); BASO % 1 % (0-3); EOS # 0.6 x10^3/uL (0.0-0.7); EOS % 6 % (0-3); HEMATOCRIT 41.6 % (39.0-53.0); HEMOGLOBIN 15.1 g/dL (13.0-17.5); LYMPH # 2.2 x10^3/uL (1.0-4.8); LYMPH % 24 % (24-48); MEAN CORPUSCULAR HEMOGLOBIN 33 pg (25-35); MEAN CORPUSCULAR HGB CONC 36 g/dL (31-37); MEAN CORPUSCULAR VOLUME 90 fL (79-100); MONO # 0.7 x10^3/uL (0.0-1.1); MONO % 8 % (0-9); NEUT # 5.7 x10^3/uL (1.8-7.7); NEUT % 61 % (31-73); PLATELET COUNT 173 x10^3/uL (140-400); RED BLOOD COUNT 4.64 x10^6/uL (4.30-5.70); RED CELL DISTRIBUTION WIDTH 13.2 % (11.5-14.5); WHITE BLOOD COUNT 9.3 x10^3/uL (4.0-11.0)
[2019-04-08 06:12] VITALS: BP 179/93
--- NOTE | 2019-04-08 06:37 | NUR ---
Admit from ED via WC. A/O x 4. Steady gait. Orientated to room and call light. Reviewed POC. Verbalized understanding. Resting in bed with call light at hand.
[2019-04-08 07:00] VITALS: BP 147/75
--- NOTE | 2019-04-08 08:36 | EKG ---
[facility] [address] [place] [address] Test Date: 2019-04-08 Test Time: 05:09:52 Pat Name: VIRGILIO LARSON Department: Room: Gender: M Director Of Food And Nutrition: : 1965 Requested By: NAFISA GREENE Order Number: [id number] Reading MD: Measurements Intervals [place] Rate: 61 P: 50 MI: 146 QRS: 30 QRSD: 100 T: 82 QT: 416 QTc: 420 Interpretive Statements SINUS RHYTHM QRS(T) CONTOUR ABNORMALITY CONSISTENT WITH INFERIOR INFARCT PROBABLY OLD ABNORMAL ECG RI6.01 No previous ECG available for comparison
[2019-04-08 08:41] LABS: CHOLESTEROL/HDL RATIO 3.6
--- NOTE | 2019-04-08 09:08 | NUR ---
IP: Pt has had a hx of + mrsa screens since 2017 with most recent on 09/21/18. Pt to be in contact precautions until there are 2 negative screens 7 days apart. Initiate Nozin/CHG decolonization.
[2019-04-08] MEDS: ASPIRIN ENTERIC COATED 81 MG TABLET.DR. PO SCH (10:00)
--- NOTE | 2019-04-08 10:04 | CARD ---
MR#: [id number] Date of Study: 04/08/2019 Ordering Physician: JEAN ELLIOTT, Referring Physician: JEAN ELLIOTT, Tech: Kelsi Clemente SILVANO APPROVED REPORT EXAM: Two-dimensional and M-mode echocardiogram with Doppler and color Doppler. Other Information Quality : Technically LimitedHR: 50bpm Rhythm : Bradycardia INDICATION Chest Pain 2D DIMENSIONS RVDd3.8 (2.9-3.5cm)Left Atrium(2D)4.2 (1.6-4.0cm) IVSd1.1 (0.7-1.1cm)Aortic Root(2D)3.2 (2.0-3.7cm) LVDd6.0 (3.9-5.9cm)LVOT Diameter2.1 (1.8-2.4cm) PWd1.2 (0.7-1.1cm)LVDs4.8 (2.5-4.0cm) FS (%) 20.0 %SV71.6 ml LVEF(%)40.4 (>50%) Aortic Valve AoV Peak Faisal.134.6cm/sAoV VTI34.1cm AO Peak GR.7.2mmHgLVOT Peak Faisal.68.1cm/s AO Mean GR.4mmHgAVA (VMAX)1.69cm2 ROLANDA (VTI)1.70cm2 Mitral Valve MV E Nodddlrw32.2cm/sMV DECEL BEMI045vn MV A Hfbjmjsv06.5cm/sE/A Ratio1.5 Pulmonary Valve PV Peak Jcohlkhr79.8cm/s Tricuspid Valve TR P. Wedggqjo422kl/sRAP FSMCDWHW7luYb TR Peak Gr.97jrSgSETY33igUx Pulmonary Vein S1 Dchgqcyu86.4cm/sD2 Yaabazzj12.9cm/s LEFT VENTRICLE The Left Ventricle is mildly dilated. There is mild concentric left ventricular hypertrophy. The left ventricular systolic function is mildly impaired. The Ejection Fraction is 45%. There is global hypo kinesis of the left ventricle. Transmitral Doppler flow pattern is Grade II-pseudonormal filling gui mics. RIGHT VENTRICLE The right ventricle is mildly dilated. There is normal right ventricular wall thickness. Systolic fun ction is mildly reduced. ATRIA The left atrium is mildly dilated. The right atrium is mildly dilated. There is a possible small PFO noted on Doppler imaging, agitated contrast saline was not performed on this study. AORTIC VALVE The aortic valve is normal in structure and function. The aortic valve is trileaflet. Doppler and Col or Flow revealed no significant aortic regurgitation. There is no significant aortic valvular stenosi s. There is no aortic valvular vegetation. MITRAL VALVE The mitral valve is normal in structure and function. There is no mitral valve stenosis. Doppler and Color-flow revealed trace mitral regurgitation. TRICUSPID VALVE The tricuspid valve is normal in structure and function. Doppler and Color Flow revealed trace tricus pid regurgitation. There is no tricuspid valve stenosis. GREAT VESSELS The aortic root is normal in size. The ascending aorta is Mildly dilated. The IVC is normal in size a nd collapses >50% with inspiration. PERICARDIAL EFFUSION There is no evidence of significant pericardial effusion. Critical Notification Critical Value: No <Conclusion> The left ventricular systolic function is mildly impaired. The Ejection Fraction is 45%. Transmitral Doppler flow pattern is Grade II-pseudonormal filling dynamics. Trace mitral regurgitation. Trace tricuspid regurgitation. There is no evidence of significant pericardial effusion. Signed by : Isreal Watson, Electronically Approved : 04/08/2019 10:03:37
[2019-04-08] MEDS ORDERED: LISINOPRIL 10 MG TABLET PO SCH (10:30)
--- NOTE | 2019-04-08 10:31 | PDOC2 ---
CARDIAC CONSULT DATE OF CONSULT Date of Consult DATE: 04/08/19 TIME: 09:51 REASON FOR CONSULT Reason for Consult: Chest pain, CAD, HTN REFERRING PHYSICIAN Referring Physician: Ludy SOURCE Source: Chart review, Patient HISTORY OF PRESENT ILLNESS HISTORY OF PRESENT ILLNESS This is a pleasant 53 yo male admitted for complains of chest pain. Reports of chest pressure that started yesterday. 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 He works local so no long distance travel. No prior hx of VTE and no leg swelling or pain. Reports yesterday he also had some diaphoresis and also neck tightness yesterday. No recent falls or injury. He is complaint with his medications. He has been feeling fatigued as well in the last week. No nausea or vomiting, no fever or chills. PAST MEDICAL HISTORY Cardiovascular: CAD, CHF, HTN, AK, Hyperlipidemia Pulmonary: Asthma, COPD CENTRAL NERVOUS SYSTEM: Other (No pertinent history) GI: No pertinent hx Heme/Onc: No pertinent hx Psych: Anxiety Musculoskeletal: low back pain, Osteoarthritis Rheumatologic: No pertinent hx Infectious disease: No pertinent hx ENT: No pertinent hx Renal/: No pertinent hx Endocrine: No pertinent hx Dermatology: No pertinent hx PAST SURGICAL HISTORY Past Surgical History: Appendectomy, CABG, Other (PCI/stents) FAMILY HISTORY Family History: Heart Disease SOCIAL HISTORY Smoke: Quit ALCOHOL: none Drugs: None Lives: with Family CURRENT MEDICATIONS CURRENT MEDICATIONS Current Medications Medications (Trade) Dose Ordered Sig/Enid Route PRN Reason Start Time Stop Time Status Last Admin Dose Admin Nitroglycerin (Nitrostat) 0.4 mg PRN Q5MIN PRN SL CP RATING > 1/10 04/08/19 05:15 04/08/19 06:00 DC 04/08/19 05:49 ALLERGIES ALLERGIES: Coded Allergies: I S O L A T I O N *CONTACT* (Verified Allergy, Unknown, 02/18/19) +MRSA screen 10-02-16 No Known Medication Allergies (Verified Allergy, Unknown, 02/18/19) ROS Review of System 14 point ROS evaluated with pertinent positives noted per HPI PHYSICAL EXAM General: Alert, Oriented X3, Cooperative, No acute distress Heart: Regular rate (SR), Normal S1, Normal S2, No murmurs Abdomen: Soft, No tenderness Extremities: No cyanosis, No edema Skin: No breakdown, No significant lesion Neuro: Normal speech, Sensation intact Psych/Mental Status: Mental status NL, Mood NL MUSCULOSKELETAL: Osteoarthritic changes both hands VITALS/I&O VITALS/I&O: Vital Signs Date Time Temp Pulse Resp B/P (MAP) Pulse Ox O2 Delivery O2 Flow Rate FiO2 04/08/19 07:00 97.4 53 20 147/75 (99) 98 Room Air 97.4 LABS Lab: Laboratory Tests Test 04/08/19 05:15 04/08/19 05:48 04/08/19 08:45 Sodium Level 141 mmol/L (136-145) Potassium Level 4.6 mmol/L (3.5-5.1) Chloride Level 106 mmol/L (98-107) Carbon Dioxide Level 30 mmol/L (21-32) Anion Gap 5 (6-14) L Blood Urea Nitrogen 18 mg/dL (8-26) Creatinine 1.3 mg/dL (0.7-1.3) Estimated GFR (Cockcroft-Gault) 57.3 BUN/Creatinine Ratio 14 (6-20) Glucose Level 106 mg/dL (70-99) H Calcium Level 9.2 mg/dL (8.5-10.1) Total Bilirubin 0.6 mg/dL (0.2-1.0) Aspartate Amino Transferase (AST) 22 U/L (15-37) Alanine Aminotransferase (ALT) 39 U/L (16-63) Alkaline Phosphatase 104 U/L (46-116) Troponin I Quantitative < 0.017 ng/mL (0.000-0.055) < 0.017 ng/mL (0.000-0.055) ZX-Fif-C-Type Natriuretic Peptide 284 pg/mL (0-124) H Total Protein 7.3 g/dL (6.4-8.2) Albumin 4.0 g/dL (3.4-5.0) Albumin/Globulin Ratio 1.2 (1.0-1.7) Triglycerides Level 116 mg/dL (0-150) Cholesterol Level 135 mg/dL (0-200) LDL Cholesterol, Calculated 75 mg/dL (0-100) VLDL Cholesterol, Calculated 23 mg/dL (0-40) Non-HDL Cholesterol Calculated 98 mg/dL (0-129) HDL Cholesterol 37 mg/dL (40-60) L Cholesterol/HDL Ratio 3.6 Thyroid Stimulating Hormone (TSH) 4.079 uIU/mL (0.358-3.74) H White Blood Count 9.3 x10^3/uL (4.0-11.0) Red Blood Count 4.64 x10^6/uL (4.30-5.70) Hemoglobin 15.1 g/dL (13.0-17.5) Hematocrit 41.6 % (39.0-53.0) Mean Corpuscular Volume 90 fL (79-100) Mean Corpuscular Hemoglobin 33 pg (25-35) Mean Corpuscular Hemoglobin Concent 36 g/dL (31-37) Red Cell Distribution Width 13.2 % (11.5-14.5) Platelet Count 173 x10^3/uL (140-400) Neutrophils (%) (Auto) 61 % (31-73) Lymphocytes (%) (Auto) 24 % (24-48) Monocytes (%) (Auto) 8 % (0-9) Eosinophils (%) (Auto) 6 % (0-3) H Basophils (%) (Auto) 1 % (0-3) Neutrophils # (Auto) 5.7 x10^3/uL (1.8-7.7) Lymphocytes # (Auto) 2.2 x10^3/uL (1.0-4.8) Monocytes # (Auto) 0.7 x10^3/uL (0.0-1.1) Eosinophils # (Auto) 0.6 x10^3/uL (0.0-0.7) Basophils # (Auto) 0.1 x10^3/uL (0.0-0.2) Laboratory Tests 04/08/19 05:48 Laboratory Tests 04/08/19 05:15 ECHOCARDIOGRAM ECHOCARDIOGRAM <Conclusion> The left ventricular systolic function is mildly impaired. The Ejection Fraction is 45%. Transmitral Doppler flow pattern is Grade II-pseudonormal filling dynamics. Trace mitral regurgitation. Trace tricuspid regurgitation. There is no evidence of significant pericardial effusion. DATE: 04/08/19 0952 HEART CATH HEART CATH Brief procedure note pending Meican system fix. Three vessel CAD. Patent GONSALEZ to LAD. Patent SVG to RCA. SVG to Ramus and OM vessels with proximal 65% lesion and 95% lesion post Ramus branch. Bare metal stents to both locations with good result. Continuing medical treatment and post PCI protocol. DATE: 09/14/17 1715 Findings. 85% left main lesion. Protected left main. Successful stenting of the left main with a 0% residual lesion. <Conclusion> Severe left main disease as noted above. Successful stenting of the left main with a 0% residual lesion. DATE: 10/06/16 0954 ASSESSMENT/PLAN ASSESSMENT/PLAN 1. Chest pain: possibly from uncontrolled HTN. trops nml, no acute EKG changes. 2. Accelerated hypertension: possibly from inadequate dosing and noted 70# wt gain in 1-2 yrs 3. CAD: Past CABG. S/P PCI/BMS to SVG to Ramus and OM vessels with patent GONSALEZ to LAD in 09/2017 4. HLP: HDL close to goal 5. COPD: controlled 6. ICM: EF 45% compensated 7. Morbid obesity 8. Asymptomatic SB: lowest mid 40s. Recommendations 1. Continue with ASA. and plavix. Continue low dose toprol. Intensify lisinopril. Continue lasix and increase statin. 2. Check A1C. TSH 3. MPI today 4. Dietitian to see pt. JEAN ELLIOTT APRN Apr 08, 2019 10:31
[2019-04-08 11:00] VITALS: BP 164/84
[2019-04-08] MEDS: CLOPIDOGREL BISULFATE 75 MG TABLET PO SCH (11:00)
[2019-04-08] MEDS: METOPROLOL SUCC 24HR ER 25 MG TAB.ER.24H. PO SCH (11:00)
[2019-04-08] MEDS ORDERED: REGADENOSON 0.4 MG/5 ML DISP.SYRIN. IV ONE (11:00)
[2019-04-08] MEDS: FUROSEMIDE 20 MG TABLET PO SCH (11:00)
[2019-04-08] MEDS ORDERED: ALPR0.5T6 PO (11:52)
[2019-04-08] MEDS: LISINOPRIL 20 MG TABLET PO SCH (12:00)
[2019-04-08] MEDS: ACETAMINOPHEN 325 MG TABLET. PO PRN ×2 (12:00→23:01)
--- NOTE | 2019-04-08 12:49 | NUR ---
Nursing: Patient took his home medications including aspirin, Lasix, Plavix and metoprolol at home prior to admit. Morning dose non-administered
--- NOTE | 2019-04-08 12:50 | NUR ---
SS following for discharge planning. SS reviewed pt chart. Pt is from home and is currently on room air. No discharge needs noted at this time. SS will continue to follow for discharge planning.
[2019-04-08 15:00] VITALS: BP 149/74
[2019-04-08] MEDS ORDERED: ALPRAZolam 0.5 MG TABLET PO PRN (17:30)
--- NOTE | 2019-04-08 18:39 | HP ---
ADMIT DATE: 04/08/2019 CHIEF COMPLAINT: Chest pain. HISTORY OF PRESENT ILLNESS AND HOSPITAL COURSE: This patient is a 53-year-old male with a long history of coronary artery disease, who came to the hospital stating that he had some diaphoresis and some chest pain that radiated to his neck. He states that his job has changed and his medication administration times have changed and he may have missed some medications. He did show up to the ER hypertensive. He had fairly negative cardiac evaluation in the Emergency Room with negative troponins and EKG without significant changes, but due to the patient's high risk status and long history of coronary artery disease, he was admitted for further evaluation, Cardiology consultation, and hypertension control. The patient's earlier hospitalization included an MPI showing small areas of reversible ischemia. Therefore, the patient was made a complete admit for further evaluation by Cardiology. The patient's current echo reveals ejection fraction of 45%, which is up from previous ejection fraction, diagnosed with cardiac catheterization in September of 25%. PAST MEDICAL HISTORY: Significant for: 1. Coronary artery disease. 2. History of congestive heart failure. 3. Hypertension. 4. Previous NC. 5. Hyperlipidemia. 6. Asthma/COPD. MEDICATIONS: On this admission, lisinopril 10 mg daily, metoprolol 50 mg extended release daily, Plavix 75 mg daily, atorvastatin 20 mg daily, aspirin 81 mg daily, Xanax 0.5 at bedtime p.r.n. PAST SURGICAL HISTORY: Significant for coronary artery bypass graft, multiple coronary stents and appendectomy. FAMILY HISTORY: Significant for mother who passed with lung cancer, father who with head trauma, a brother who is alive with liver cancer status post transplant. SOCIAL HISTORY: The patient is a former smoker, quitting smoking approximately 6 months ago. The patient does live alone. 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 He uses alcohol occasionally. ALLERGIES: The patient denies any drug allergies. REVIEW OF SYSTEMS: The patient denies any recent nausea, vomiting, significant shortness of breath, weight loss, weight gain. The patient did have diaphoresis with chest pain, radiation, worse with activity on current admission. The patient denies cough, congestion, or diarrhea. The patient does complain of significant pain from treatment from multiple actinic keratoses. PHYSICAL EXAMINATION: GENERAL: This is a morbidly obese male, in no apparent distress. On my exam, he is alert and oriented x 3. HEENT: Reveals poor dentition, otherwise benign. NECK: Supple. CARDIAC: Regular rate and rhythm. LUNGS: Clear. ABDOMEN: Soft, nontender, without masses. EXTREMITIES: There are 2+ pulse without significant edema. NEUROLOGIC: Showed no unilateral findings. ASSESSMENT: 1. Chest pain. 2. Hypertensive emergency. 3. Coronary artery disease. PLAN: To proceed with Cardiology evaluation. Control blood pressure and monitor for further chest pains. Increase activity when stable and discharge to home after completed Cardiology evaluation. SUZANNE THOMAS MD DR: SANDRA/zoie JOB#: [id number] / [id number]
[2019-04-08 19:05] VITALS: BP 146/72
[2019-04-08] MEDS ORDERED: ATORVASTATIN CALCIUM 20 MG TABLET PO SCH (21:00)
[2019-04-08 22:57] VITALS: BP 118/58
[2019-04-09 03:30] VITALS: BP 127/74
[2019-04-09 04:29] LABS: BASO # 0.1 x10^3/uL (0.0-0.2); BASO % 1 % (0-3); EOS # 0.5 x10^3/uL (0.0-0.7); EOS % 7 % (0-3); HEMATOCRIT 43.1 % (39.0-53.0); HEMOGLOBIN 15.4 g/dL (13.0-17.5); LYMPH # 2.3 x10^3/uL (1.0-4.8); LYMPH % 29 % (24-48); MEAN CORPUSCULAR HEMOGLOBIN 32 pg (25-35); MEAN CORPUSCULAR HGB CONC 36 g/dL (31-37); MEAN CORPUSCULAR VOLUME 90 fL (79-100); MONO # 0.6 x10^3/uL (0.0-1.1); MONO % 7 % (0-9); NEUT # 4.4 x10^3/uL (1.8-7.7); NEUT % 56 % (31-73); PLATELET COUNT 168 x10^3/uL (140-400); RED BLOOD COUNT 4.76 x10^6/uL (4.30-5.70); RED CELL DISTRIBUTION WIDTH 13.3 % (11.5-14.5); WHITE BLOOD COUNT 7.8 x10^3/uL (4.0-11.0)
[2019-04-09 04:55] LABS: ALBUMIN 3.5 g/dL (3.4-5.0); CALCIUM 8.8 mg/dL (8.5-10.1); CREATININE 1.3 mg/dL (0.7-1.3); GFR 57.3; POTASSIUM 3.9 mmol/L (3.5-5.1); TOTAL BILIRUBIN 0.6 mg/dL (0.2-1.0); TOTAL PROTEIN 6.9 g/dL (6.4-8.2)
[2019-04-09 07:00] VITALS: BP 127/74
[2019-04-09 08:15] VITALS: BP 130/78
[2019-04-09] MEDS: FUROSEMIDE 20 MG TABLET PO SCH (09:01)
[2019-04-09] MEDS: ASPIRIN ENTERIC COATED 81 MG TABLET.DR. PO SCH (09:01)
[2019-04-09] MEDS: LISINOPRIL 20 MG TABLET PO SCH (09:01)
[2019-04-09] MEDS: CLOPIDOGREL BISULFATE 75 MG TABLET PO SCH (09:02)
[2019-04-09] MEDS: METOPROLOL SUCC 24HR ER 25 MG TAB.ER.24H. PO SCH (09:02)
[2019-04-09 11:00] VITALS: BP 135/74
--- NOTE | 2019-04-09 12:44 | PDOC ---
PROGRESS NOTES Subjective He has completed MPI, results pending, no new concerns, he feels good and did not have any pain during test Objective Afebrile General: NAD Heart: RRR Lungs: CTA Abd: soft and non tender Ext: no C/C/E Vital Signs Vital Signs Date Time Temp Pulse Resp B/P (MAP) Pulse Ox O2 Delivery O2 Flow Rate FiO2 04/09/19 11:00 97.7 68 135/74 (94) 93 Room Air 97.7 04/09/19 03:30 20 I & O Intake and Output 04/09/19 07:00 Intake Total 480 ml Balance 480 ml Intake Oral 480 ml # Voids 7 Assessment and Plan 1. Chest pain - hx of CAD and multiple prior stents - awaiting results of MPI. 2. Hypertensive emergency - BP initially 216/113 but now controlled with incr ease of lisinopril to 40 mg from 10 mg. 3. Coronary artery disease. Miguel SAENZ MD Apr 09, 2019 12:44
--- NOTE | 2019-04-09 13:20 | RAD ---
MR#: [id number] Date of Study: 04/08/2019 Ordering Physician: JEAN ELLIOTT, Referring Physician: SONNY HERNANDES Tech: RT Keyur CanadaR) (N)RT Norma Miller) (N) APPROVED REPORT Test Type: Pharmacological Stress Nurse/Tech: Osiris Irby R.N. Test Indications: chest pain, cardiomyopathy Cardiac History: mult stents, CABG, htn, copd Medications: see ehr Medical History: see ehr Resting ECG: sr Resting Heart Rate: 56 bpm Resting Blood Pressure: 167/83mmHg Pretest Chest Pain: No chest pain Nurse/Tech Notes lungs cta, heart tones regular Consent: The procedure was explained to the patient in lay terms. Informed consent was witnessed. Gomez eout was entered into [employer]. History and Stress Test performed by RT Norma Canada) (N) Pharm. Details Pharmacologic stress testing was performed using 0.4mg per 5ml of regadenoson given intravenously ove r 7-10 seconds. Stress Symptoms No chest pain or symptoms. Nausea POST EXERCISE Reason for Termination: Infusion complete Target HR: No Max HR: 79 bpm Max Blood Pressure: 171/89mmHg Chest Pain: No. Arrhythmia: No. ST Change: No. INTERPRETATION Stress EKG Conclusion: The resting EKG shows a sinus rhythm with mild nonspecific ST-T wave changes. The stress EKG shows no significant changes from baseline. No EKG evidence of stressed induced ischemia. Imaging Protocol IMAGE PROTOCOL: Stress Tc-99m/rest Tc-99m 2 days Rest: Stress: Viability: Radiopharm.Tc99m Sestamibi Dose32.6mCi Duration 15min. Img Date 04/08/2019 Img Time 13:15 Inj-Img Hbus19jje. Stress Admin Site: IV - Right AntecubitalAdministrator: RT Norma Canada)(N) STRESS DATA End Diast. Vol.162.0mlAv. Heart Rate61.0bpm End Syst. Vol.73.0mlCO Index BSA0.0L/min Myocardial Pkjl798.0gEject. Mmmetrry40.0% Stress Rates Pk. Fill Rate2.24EDV/secLVtime Pk. Fill 300.88msec Pk. Empty Rate2.62ESV/secLVtime Pk. Uuwbo619.20msec /3 Pk. Fill1.10EDV/sec Stress Scores Regional WT1.00Summed WT12.00 Regional WM0.00Summed WM11.00 LV Perfusion The stress scans show an inferior defect. The rest scans show an inferior defect. Nuclear imaging shows no reversible ischemia. Nuclear imaging shows a fixed inferior wall defect most consistent with a small infarct but an attenu ation defect cannot be excluded. Wall Motion Left ventricular systolic function shows minimal inferior wall hypokinesis. Ejection fraction of 52%. LV Perf. Quant 17 Seg. SSS7.00 Stress Defect Extent (% LAD)0.00Rest Defect Extent (% LAD)Rev. Defect Extent (% LAD)0.00 Stress Defect Extent (% LCX) 7.50Rest Defect Extent (% LCX)Rev. Defect Extent (% LCX)0.00 Stress Defect Extent (% RCA)51.10Rest Defect Extent (% RCA)Rev. Defect Extent (% RCA)0.00 Stress Defect Extent (% DEANNA)11.30Rest Defect Extent (% DEANNA)Rev. Defect Extent (% DEANNA)0.00 Conclusion 1. No EKG evidence of stress-induced ischemia. 2. Nuclear imaging shows no reversible ischemia. 3. Nuclear imaging shows a small fixed inferior wall defect most consistent with a prior infarct. 4. Left ventricular systolic function shows minimal inferior wall hypokinesis and an ejection fractio n of 52%. 5. Moderately low risk Lexiscan nuclear stress test. Signed by : Tod De La Cruz MD Electronically Approved : 04/09/2019 13:19:46
[2019-04-09] MEDS: ACETAMINOPHEN 325 MG TABLET. PO PRN (13:43)
[2019-04-09] MEDS ORDERED: LISI-130 PO ×2 (13:51→14:04)
[2019-04-09] MEDS ORDERED: ATOR40TA59 PO (13:59)
[2019-04-09] MEDS ORDERED: ASPI-630 PO (14:00)
--- NOTE | 2019-04-09 14:55 | NUR ---
Discharge Note: VIRGILIO LARSON Discharge instructions and discharge home medications reviewed with Patient and a copy given. All questions have been answered and understanding verbalized. The following instructions and handouts were given: CP, dash diet, and tobacco use. Discontinued iv lines and catheter intact. Patient discharged to home with self-care via private vehicle.
--- NOTE | 2019-04-09 15:15 | PDOC ---
PROGRESS NOTES Subjective Subjective Patient seen and examined Objective Objective Vital Signs Date Time Temp Pulse Resp B/P (MAP) Pulse Ox O2 Delivery O2 Flow Rate FiO2 04/09/19 11:00 97.7 68 135/74 (94) 93 Room Air 97.7 04/09/19 03:30 20 Intake and Output 04/09/19 07:00 Intake Total 480 ml Balance 480 ml Intake Oral 480 ml # Voids 7 Physical Exam Abdomen: Normal bowel sounds Heart: Regular rate General: No acute distress Lungs: Clear to auscultation Assessment Assessment Chest pain. Resolved. No acute EKG changes and no significant elevation in troponin. Patient with severe hypertension on admission. Second part of the nuclear stress test pending today. If no reversible ischemia we'll discharge and follow-up as an outpatient. Accelerated hypertension. Improved on increased Lisinopril dose. History of bypass surgery. Continue baseline medications. Testing as above. Hyperlipidemia. Continue statins. COPD. Controlled on present medications. Mildly decreased ejection fraction of 45%. Will continue present medications. Mild asymptomatic bradycardia. Continue to monitor. Comment Review of Relevant I have reviewed the following items josefina (where applicable) has been applied. Labs Laboratory Tests Test 04/08/19 05:15 04/08/19 05:48 04/08/19 08:45 04/08/19 11:50 Sodium Level 141 mmol/L (136-145) Potassium Level 4.6 mmol/L (3.5-5.1) Chloride Level 106 mmol/L (98-107) Carbon Dioxide Level 30 mmol/L (21-32) Anion Gap 5 (6-14) Blood Urea Nitrogen 18 mg/dL (8-26) Creatinine 1.3 mg/dL (0.7-1.3) Estimated GFR (Cockcroft-Gault) 57.3 BUN/Creatinine Ratio 14 (6-20) Glucose Level 106 mg/dL (70-99) Calcium Level 9.2 mg/dL (8.5-10.1) Total Bilirubin 0.6 mg/dL (0.2-1.0) Aspartate Amino Transf (AST/SGOT) 22 U/L (15-37) Alanine Aminotransferase (ALT/SGPT) 39 U/L (16-63) Alkaline Phosphatase 104 U/L (46-116) Troponin I Quantitative < 0.017 ng/mL (0.000-0.055) < 0.017 ng/mL (0.000-0.055) < 0.017 ng/mL (0.000-0.055) KS-Fns-P-Type Natriuretic Peptide 284 pg/mL (0-124) Total Protein 7.3 g/dL (6.4-8.2) Albumin 4.0 g/dL (3.4-5.0) Albumin/Globulin Ratio 1.2 (1.0-1.7) Triglycerides Level 116 mg/dL (0-150) Cholesterol Level 135 mg/dL (0-200) LDL Cholesterol, Calculated 75 mg/dL (0-100) VLDL Cholesterol, Calculated 23 mg/dL (0-40) Non-HDL Cholesterol Calculated 98 mg/dL (0-129) HDL Cholesterol 37 mg/dL (40-60) Cholesterol/HDL Ratio 3.6 Thyroid Stimulating Hormone (TSH) 4.079 uIU/mL (0.358-3.74) White Blood Count 9.3 x10^3/uL (4.0-11.0) Red Blood Count 4.64 x10^6/uL (4.30-5.70) Hemoglobin 15.1 g/dL (13.0-17.5) Hematocrit 41.6 % (39.0-53.0) Mean Corpuscular Volume 90 fL (79-100) Mean Corpuscular Hemoglobin 33 pg (25-35) Mean Corpuscular Hemoglobin Concent 36 g/dL (31-37) Red Cell Distribution Width 13.2 % (11.5-14.5) Platelet Count 173 x10^3/uL (140-400) Neutrophils (%) (Auto) 61 % (31-73) Lymphocytes (%) (Auto) 24 % (24-48) Monocytes (%) (Auto) 8 % (0-9) Eosinophils (%) (Auto) 6 % (0-3) Basophils (%) (Auto) 1 % (0-3) Neutrophils # (Auto) 5.7 x10^3/uL (1.8-7.7) Lymphocytes # (Auto) 2.2 x10^3/uL (1.0-4.8) Monocytes # (Auto) 0.7 x10^3/uL (0.0-1.1) Eosinophils # (Auto) 0.6 x10^3/uL (0.0-0.7) Basophils # (Auto) 0.1 x10^3/uL (0.0-0.2) Hemoglobin A1c 5.0 % (4.8-5.6) Test 04/09/19 03:45 White Blood Count 7.8 x10^3/uL (4.0-11.0) Red Blood Count 4.76 x10^6/uL (4.30-5.70) Hemoglobin 15.4 g/dL (13.0-17.5) Hematocrit 43.1 % (39.0-53.0) Mean Corpuscular Volume 90 fL (79-100) Mean Corpuscular Hemoglobin 32 pg (25-35) Mean Corpuscular Hemoglobin Concent 36 g/dL (31-37) Red Cell Distribution Width 13.3 % (11.5-14.5) Platelet Count 168 x10^3/uL (140-400) Neutrophils (%) (Auto) 56 % (31-73) Lymphocytes (%) (Auto) 29 % (24-48) Monocytes (%) (Auto) 7 % (0-9) Eosinophils (%) (Auto) 7 % (0-3) Basophils (%) (Auto) 1 % (0-3) Neutrophils # (Auto) 4.4 x10^3/uL (1.8-7.7) Lymphocytes # (Auto) 2.3 x10^3/uL (1.0-4.8) Monocytes # (Auto) 0.6 x10^3/uL (0.0-1.1) Eosinophils # (Auto) 0.5 x10^3/uL (0.0-0.7) Basophils # (Auto) 0.1 x10^3/uL (0.0-0.2) Sodium Level 142 mmol/L (136-145) Potassium Level 3.9 mmol/L (3.5-5.1) Chloride Level 106 mmol/L (98-107) Carbon Dioxide Level 27 mmol/L (21-32) Anion Gap 9 (6-14) Blood Urea Nitrogen 18 mg/dL (8-26) Creatinine 1.3 mg/dL (0.7-1.3) Estimated GFR (Cockcroft-Gault) 57.3 BUN/Creatinine Ratio 14 (6-20) Glucose Level 109 mg/dL (70-99) Calcium Level 8.8 mg/dL (8.5-10.1) Total Bilirubin 0.6 mg/dL (0.2-1.0) Aspartate Amino Transf (AST/SGOT) 23 U/L (15-37) Alanine Aminotransferase (ALT/SGPT) 36 U/L (16-63) Alkaline Phosphatase 93 U/L (46-116) Total Protein 6.9 g/dL (6.4-8.2) Albumin 3.5 g/dL (3.4-5.0) Albumin/Globulin Ratio 1.0 (1.0-1.7) Laboratory Tests Test 04/09/19 03:45 White Blood Count 7.8 x10^3/uL (4.0-11.0) Red Blood Count 4.76 x10^6/uL (4.30-5.70) Hemoglobin 15.4 g/dL (13.0-17.5) Hematocrit 43.1 % (39.0-53.0) Mean Corpuscular Volume 90 fL (79-100) Mean Corpuscular Hemoglobin 32 pg (25-35) Mean Corpuscular Hemoglobin Concent 36 g/dL (31-37) Red Cell Distribution Width 13.3 % (11.5-14.5) Platelet Count 168 x10^3/uL (140-400) Neutrophils (%) (Auto) 56 % (31-73) Lymphocytes (%) (Auto) 29 % (24-48) Monocytes (%) (Auto) 7 % (0-9) Eosinophils (%) (Auto) 7 % (0-3) Basophils (%) (Auto) 1 % (0-3) Neutrophils # (Auto) 4.4 x10^3/uL (1.8-7.7) Lymphocytes # (Auto) 2.3 x10^3/uL (1.0-4.8) Monocytes # (Auto) 0.6 x10^3/uL (0.0-1.1) Eosinophils # (Auto) 0.5 x10^3/uL (0.0-0.7) Basophils # (Auto) 0.1 x10^3/uL (0.0-0.2) Sodium Level 142 mmol/L (136-145) Potassium Level 3.9 mmol/L (3.5-5.1) Chloride Level 106 mmol/L (98-107) Carbon Dioxide Level 27 mmol/L (21-32) Anion Gap 9 (6-14) Blood Urea Nitrogen 18 mg/dL (8-26) Creatinine 1.3 mg/dL (0.7-1.3) Estimated GFR (Cockcroft-Gault) 57.3 BUN/Creatinine Ratio 14 (6-20) Glucose Level 109 mg/dL (70-99) Calcium Level 8.8 mg/dL (8.5-10.1) Total Bilirubin 0.6 mg/dL (0.2-1.0) Aspartate Amino Transf (AST/SGOT) 23 U/L (15-37) Alanine Aminotransferase (ALT/SGPT) 36 U/L (16-63) Alkaline Phosphatase 93 U/L (46-116) Total Protein 6.9 g/dL (6.4-8.2) Albumin 3.5 g/dL (3.4-5.0) Albumin/Globulin Ratio 1.0 (1.0-1.7) Medications Current Medications Aspirin (Children'S Aspirin) 324 mg 1X ONCE PO ; Start 04/08/19 at 05:15; Stop 04/08/19 at 05:17; Status DC Nitroglycerin (Nitrostat) 0.4 mg PRN Q5MIN PRN SL CP RATING > 1/10 Last administered on 04/08/19at 05:49; Start 04/08/19 at 05:15; Stop 04/08/19 at 06:00; Status DC Ondansetron HCl (Zofran) 4 mg PRN Q8HRS PRN IV NAUSEA/VOMITING; Start 04/08/19 at 05:45; Stop 04/09/19 at 05:44; Status DC Nitroglycerin (Nitrostat) 0.4 mg PRN Q5MIN PRN SL CHEST PAIN; Start 04/08/19 at 05:45; Stop 04/09/19 at 05:44; Status DC Atorvastatin Calcium (Lipitor) 40 mg QHS PO Last administered on 04/08/19at 20:31; Start 04/08/19 at 21:00 Clopidogrel Bisulfate (Plavix) 75 mg DAILY PO Last administered on 04/09/19at 09:02; Start 04/08/19 at 11:00 Furosemide (Lasix) 20 mg DAILY PO Last administered on 04/09/19 09:01; Start 04/08/19 at 11:00 Lisinopril (Prinivil) 40 mg DAILY PO ; Start 04/08/19 at 10:30; Stop 04/08/19 at 10:27; Status DC Metoprolol Succinate (Toprol Xl) 25 mg DAILY PO Last administered on 04/09/19 09:02; Start 04/08/19 at 11:00 Aspirin (Ecotrin) 81 mg DAILYWBKFT PO Last administered on 04/09/19 09:01; Start 04/08/19 at 10:00 Lisinopril (Prinivil) 40 mg DAILY PO Last administered on 04/09/19 09:01; Start 04/08/19 at 10:30 Regadenoson (Lexiscan) 0.4 mg 1X ONCE IV Last administered on 04/08/19at 11:30; Start 04/08/19 at 11:00; Stop 04/08/19 at 11:01; Status DC Acetaminophen (Tylenol) 650 mg PRN Q6HRS PRN PO pain/temp Last administered on 04/09/19at 13:43; Start 04/08/19 at 12:00 Alprazolam (Xanax) 0.5 mg HS PRN PO AGITATION Last administered on 04/08/19at 20:31; Start 04/08/19 at 17:30 Active Scripts Active Plavix (Clopidogrel Bisulfate) 75 Mg Tablet 1 Tab PO DAILY Atorvastatin Calcium 20 Mg Tablet 20 Mg PO QHS Reported Aspirin 81 Mg Tab.chew 1 Tab PO DAILY Atorvastatin Calcium 40 Mg Tablet 1 Tab PO DAILY Lisinopril 40 Mg Tablet 40 Mg PO DAILY Alprazolam 0.5 Mg Tablet 0.5 Mg PO HS PRN Lasix (Furosemide) 20 Mg Tablet 1 Tab PO DAILY Toprol Xl (Metoprolol Succinate) 25 Mg Tab.er.24h 1 Tab PO DAILY Vitals/I & O Vital Sign - Last 24 Hours 04/08/19 04/08/19 04/08/19 04/09/19 19:05 19:10 22:57 03:30 Temp 97.7 98.1 98.1 97.7 98.1 98.1 Pulse 65 76 87 Resp 18 18 20 B/P (MAP) 146/72 (96) 118/58 (78) 127/74 (91) Pulse Ox 96 98 93 O2 Delivery Room Air Room Air Room Air Room Air 04/09/19 04/09/19 04/09/19 04/09/19 07:00 08:00 08:15 09:01 Temp 98.1 97.5 98.1 97.5 Pulse 87 62 62 B/P (MAP) 127/74 (91) 130/78 (95) 130/78 Pulse Ox 93 94 O2 Delivery Room Air Room Air Room Air 04/09/19 04/09/19 09:02 11:00 Temp 97.7 97.7 Pulse 62 68 B/P (MAP) 130/78 135/74 (94) Pulse Ox 93 O2 Delivery Room Air Intake and Output 04/08/19 04/08/19 04/09/19 15:00 23:00 07:00 Intake Total 480 ml Balance 480 ml SHELBI MCLEAN MD Apr 09, 2019 15:15
--- NOTE | 2019-04-10 14:43 | PDOC3 ---
Discharge Summary [facility] Date of Admission: Apr 08, 2019 Discharge Date: Apr 09, 2019 Admitting Diagnosis chest pain Final Diagnosis chest pain from hypertensive emergency with demand ischemia CONSULTS [place] Procedures stress MPI Brief Hospital Course Mr. Osborne is a 53 old who presented with: 1. Chest pain - hx of CAD and multiple prior stents - 2 day MPI showed fixed defect and thought to be due to scar tissue from prior [place]. 2. Hypertensive emergency - BP initially 216/113 but now controlled with increase of lisinopril to 40 mg from 10 mg. Patient History: FH: cancer FH: heart disease 33 FATHER FH: liver cancer G8 BROTHER FH: lung cancer 32 MOTHER Aunt Aunt Grandmother Grandfather FH: myocardial infarction Aunt Aunt Disposition home CONDITION AT DISCHARGE: Improved, Stable Diet cardiac Scheduled Aspirin (Aspirin), 1 TAB PO DAILY, (Reported) Atorvastatin Calcium (Atorvastatin Calcium), 20 MG PO QHS Atorvastatin Calcium (Atorvastatin Calcium), 1 TAB PO DAILY, (Reported) Clopidogrel Bisulfate (Plavix), 1 TAB PO DAILY Furosemide (Lasix), 1 TAB PO DAILY, (Reported) Lisinopril (Lisinopril), 40 MG PO DAILY, (Reported) Metoprolol Succinate (Toprol Xl), 1 TAB PO DAILY, (Reported) Scheduled PRN Alprazolam (Alprazolam), 0.5 MG PO HS PRN for AGITATION, (Reported) Discontinued Medications Lisinopril (Lisinopril), 1 TAB PO DAILY, (Reported) Lisinopril (Lisinopril), 1 TAB PO DAILY, (Reported) Follow Up 1-2 weeks in office Miguel SAENZ MD Apr 10, 2019 14:43
== END 2019-04-09 15:54 | disposition home or self-care (01) | DRG 305 ==
LOC: ER 05:07 → 2 SOUTH 05:45 → OBSVTOIN 17:13
PROVIDERS: ADMIT Family Medicine; ATTEND Family Medicine
DX: I16.1 Hypertensive emergency (principal); I24.8 Other forms of acute ischemic heart disease; I25.10 Atherosclerotic heart disease of native coronary artery without angina pectoris; J44.9 Chronic obstructive pulmonary disease, unspecified; I50.9 Heart failure, unspecified; F41.9 Anxiety disorder, unspecified; I11.0 Hypertensive heart disease with heart failure; E66.01 Morbid (severe) obesity due to excess calories; E78.5 Hyperlipidemia, unspecified; Z95.5 Presence of coronary angioplasty implant and graft; M19.90 Unspecified osteoarthritis, unspecified site; Z80.1 Family history of malignant neoplasm of trachea, bronchus and lung; Z80.0 Family history of malignant neoplasm of digestive organs; Z87.891 Personal history of nicotine dependence; Z68.39 Body mass index [BMI] 39.0-39.9, adult; Z88.8 Allergy status to other drugs, medicaments and biological substances; I25.2 Old myocardial infarction; Z95.1 Presence of aortocoronary bypass graft; Z82.49 Family history of ischemic heart disease and other diseases of the circulatory system
CPT/HCPCS: 36415; 71045; 78452; 80053; 80061; 83036; 83880; 84443; 84484; 85025; 93005; 93017; 93306; A9500; G0378; G0379; J2785; 99285-25

== ENCOUNTER → 2019-05-12 | Outpatient (CLI) | payer OTHER ==
[~2019-05-12] MED LIST changes: +ALPR0.5T6 PO; +ATOR40TA59 PO; +LISI-130 PO
[2019-05-12 16:33] LABS: BASO # 0.1 x10^3/uL (0.0-0.2); BASO % 1 % (0-3); EOS # 0.5 x10^3/uL (0.0-0.7); EOS % 5 % (0-3); HEMATOCRIT 43.2 % (39.0-53.0); HEMOGLOBIN 15.4 g/dL (13.0-17.5); LYMPH # 3.8 x10^3/uL (1.0-4.8); LYMPH % 32 % (24-48); MEAN CORPUSCULAR HEMOGLOBIN 32 pg (25-35); MEAN CORPUSCULAR HGB CONC 36 g/dL (31-37); MEAN CORPUSCULAR VOLUME 89 fL (79-100); MONO % 9 % (0-9); NEUT # 6.5 x10^3/uL (1.8-7.7); NEUT % 54 % (31-73); PLATELET COUNT 217 x10^3/uL (140-400); RED BLOOD COUNT 4.86 x10^6/uL (4.30-5.70); RED CELL DISTRIBUTION WIDTH 13.4 % (11.5-14.5)
[2019-05-12 16:47] LABS: CREATININE 1.4 mg/dL (0.7-1.3); DIRECT BILIRUBIN 0.2 mg/dL (0.0-0.2); GFR 52.6; POTASSIUM 4.5 mmol/L (3.5-5.1); TOTAL BILIRUBIN 0.6 mg/dL (0.2-1.0); TOTAL PROTEIN 7.7 g/dL (6.4-8.2)
--- NOTE | 2019-05-12 16:50 | RAD ---
EXAM: ABDOMEN ONE VIEW. HISTORY: Abdominal pain. COMPARISON: None. FINDINGS: A frontal view of the abdomen is obtained. There are no distended small bowel loops. There is gas distally. IMPRESSION: 1. No evidence of obstruction. Electronically signed by: Yony Bellamy MD (05/12/2019 4:47 PM) [facility]
== END | disposition home or self-care (01) ==
LOC: RAD 15:50
PROVIDERS: ATTEND Internal Medicine Cardiovascular Disease
DX: R10.9 Unspecified abdominal pain (principal); I10 Essential (primary) hypertension; Z95.1 Presence of aortocoronary bypass graft
CPT/HCPCS: 36415; 74018; 80048; 80076; 82150; 83690; 85025

== ENCOUNTER → 2019-05-16 | Outpatient (CLI) | payer OTHER ==
--- NOTE | 2019-05-16 08:30 | RAD ---
Complete abdominal ultrasound 05/16/2019 7:45 AM Clinical History: Abdominal pain, discomfort Technique: Ultrasound examination of the abdomen was performed, and multiple static images were submitted for review. Comparison: None FINDINGS: The pancreas is poorly visualized. The aorta and IVC are poorly visualized. The liver is partially obscured. The liver is grossly normal in length measuring 16.5 cm longitudinally. The majority of the liver is not well seen. Visualized portions of the liver haven't increased echogenicity suggestive of hepatic steatosis. The gallbladder demonstrates no evidence of wall thickening, stones, or sludge. The common bile duct is nondilated measuring 3 mm in diameter. The right kidney is unremarkable in appearance measuring 15 cm in length. Spleen is enlarged measuring 15 cm longitudinally. The left kidney is unremarkable in appearance measuring 12 cm in length. IMPRESSION: 1. Limited visualization of the liver. Possible hepatic steatosis 2. Splenomegaly Electronically signed by: Osmin Woodard MD (05/16/2019 8:28 AM) [id number]
== END | disposition home or self-care (01) ==
LOC: US 06:31
PROVIDERS: ATTEND Internal Medicine Cardiovascular Disease
DX: R16.1 Splenomegaly, not elsewhere classified (principal)
CPT/HCPCS: 76700

== ENCOUNTER → 2019-05-27 | Outpatient (CLI) | payer OTHER ==
[~2019-05-27] MED LIST changes: +CONTRAST GIVEN. MC PRN; +IOHEXOL 240 MG/ML 50ML VIAL. PO ONE
--- NOTE | 2019-05-28 14:08 | RAD ---
CT scan of the abdomen with oral contrast only 05/27/2019 CLINICAL HISTORY: Periumbilical abdominal pain. TECHNIQUE: After the oral administration contrast only, contiguous, 5 mm axial sections were obtained through the abdomen. One or more of the following individualized dose reduction techniques were utilized for this study: 1. Automated exposure control. 2. Adjustment of the mA and/or kV according to patient size. 3. Use of iterative reconstruction technique. FINDINGS: Images through the lung bases demonstrate minimal dependent subsegmental atelectasis bilaterally. Low-attenuation lesions are seen involving the right lobe of the liver which measure 7 and 9 mm in size. These likely represent cysts. The spleen, pancreas, adrenal glands and kidneys are within normal limits. Atherosclerotic calcification abdominal aorta is seen. The abdominal aorta tapers normally. The gallbladder is contracted. No free fluid or free air is seen within the abdomen. There is no evidence of bowel obstruction. There is a small fat-containing umbilical hernia which measures 4.1 cm in size. Scattered diverticula are seen involving the colon. No inflammatory changes are seen in the adjacent fat. The appendix is not visualized. Minimal S-shaped curvature of the thoracolumbar spine is seen. Degenerative changes are seen involving the lower thoracic and throughout the lumbar spine. IMPRESSION: 4.1 cm umbilical hernia. Electronically signed by: Tye Gregg MD (05/28/2019 2:05 PM) [email or web address]
== END | disposition home or self-care (01) ==
LOC: CT 16:30
PROVIDERS: ATTEND Nurse Practitioner Gerontology
DX: K42.9 Umbilical hernia without obstruction or gangrene (principal); K76.89 Other specified diseases of liver; K82.0 Obstruction of gallbladder; K57.30 Diverticulosis of large intestine without perforation or abscess without bleeding; J98.11 Atelectasis; I70.0 Atherosclerosis of aorta
CPT/HCPCS: 74150

== ENCOUNTER 2019-08-09 11:12 | Day surgery (SDC) | payer OTHER ==
[~2019-08-09] VITALS: Ht 175.3 cm; Wt 123.0 kg
[~2019-08-09 11:12] MED LIST changes: +ACETAMINOPHEN 500 MG TABLET PO ONE; -CONTRAST GIVEN. MC PRN; +HYDROmorphone 2 MG/ML VIAL IV PRN; -IOHEXOL 240 MG/ML 50ML VIAL. PO ONE; +IV RINGERS,LACTATED 1000ML 1,000 ML IV SCH; +LIDOCAINE 2% PF 5 ML VIAL. ONE; +METO100T5 PO; +MORPHINE SULFATE 2 MG/ML VIAL. IV PRN; -OMEP20CA10 PO; +OMEP20CA16 PO; +ONDANSETRON PF 4 MG/2 ML VIAL. IV PRN; +PROCHLORPERAZINE 10 MG/2 ML VIAL. IV PRN; +PROPOFOL 20 ML IV ONE; +ceFAZolin SODIUM 3 GM in IV DEXTROSE 5% 100ML 100 ML IV PRN; +fentaNYL PF VIAL 100 MCG/2 ML VIAL IV PRN
[2019-08-09] MEDS ORDERED: SUCCINYLCHOLINE 200 MG/10 ML VIAL. ONE (11:13)
[2019-08-09] MEDS ORDERED: ROCURONIUM 50 MG/5 ML VIAL. ONE (11:13)
[2019-08-09] MEDS ORDERED: fentaNYL PF VIAL 100 MCG/2 ML VIAL ONE ×3 (11:50→15:04)
--- NOTE | 2019-08-09 12:31 | PDOC1 ---
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 developed a abdominal wall hematoma subsequent was developed pain after the hematomas resolved CT scan of his abdomen showed a epigastric hernia Past Medical History Cardiovascular: CAD, CHF, HTN, [place], Hyperlipidemia Pulmonary: Asthma, COPD CENTRAL NERVOUS SYSTEM: Other GI: No pertinent hx Heme/Onc: No pertinent hx Hepatobiliary: No pertinent hx Psych: Anxiety Musculoskeletal: low back pain, Osteoarthritis Rheumatologic: No pertinent hx Infectious disease: No pertinent hx Renal/: No pertinent hx Endocrine: No pertinent hx Past Surgical History Past Surgical History: Appendectomy, CABG, Other Family History Family History: Heart Disease Social History ALCOHOL: none Drugs: None Current Medications Current Medications Current Medications Ondansetron HCl (Zofran) 4 mg PRN Q6HRS PRN IV NAUSEA/VOMITING; Start 08/09/19 at 07:00; Stop 08/10/19 at 06:59 Fentanyl Citrate (Fentanyl 2ml Vial) 25 mcg PRN Q5MIN PRN IV MILD PAIN 1-3; Start 08/09/19 at 07:00; Stop 08/10/19 at 06:59 Fentanyl Citrate (Fentanyl 2ml Vial) 50 mcg PRN Q5MIN PRN IV MODERATE TO SEVERE PAIN; Start 08/09/19 at 07:00; Stop 08/10/19 at 06:59 Morphine Sulfate (Morphine Sulfate) 1 mg PRN Q10MIN PRN IV SEVERE PAIN 7-10; Start 08/09/19 at 07:00; Stop 08/10/19 at 06:59 Ringer's Solution 1,000 ml @ 30 mls/hr Q24H IV ; Start 08/09/19 at 07:00; Stop 08/09/19 at 18:59 Hydromorphone HCl (Dilaudid) 0.5 mg PRN Q10MIN PRN IV SEV PAIN, Second choice; Start 08/09/19 at 07:00; Stop 08/10/19 at 06:59 Prochlorperazine Edisylate (Compazine) 5 mg PACU PRN PRN IV NAUSEA, MRX1; Star t 08/09/19 at 07:00; Stop 08/10/19 at 06:59 Acetaminophen (Tylenol) 1,000 mg ONCE ONCE PO ; Start 08/09/19 at 06:00; Stop 08/09/19 at 06:01; Status DC Cefazolin Sodium 3 gm/Dextrose 100 ml @ 200 mls/hr 1X PREOP PRN IV PRIOR TO PROCEDURE; Start 08/09/19 at 06:00; Stop 08/09/19 at 15:00 Propofol 20 ml @ As Directed STK-MED ONCE IV ; Start 08/09/19 at 10:51; Stop 08/09/19 at 10:51; Status DC Lidocaine HCl (Lidocaine Pf 2% Vial) 5 ml STK-MED ONCE .ROUTE ; Start 08/09/19 at 10:51; Stop 08/09/19 at 10:51; Status DC Succinylcholine Chloride (Anectine) 200 mg STK-MED ONCE .ROUTE ; Start 08/09/19 at 11:13; Stop 08/09/19 at 11:13; Status DC Rocuronium [place] (Zemuron) 50 mg STK-MED ONCE .ROUTE ; Start 08/09/19 at 11:13; Stop 08/09/19 at 11:13; Status DC Fentanyl Citrate (Fentanyl 2ml Vial) 100 mcg STK-MED ONCE .ROUTE ; Start 08/09/19 at 11:50; Stop 08/09/19 at 11:51; Status DC Active Scripts Active Plavix (Clopidogrel Bisulfate) 75 Mg Tablet 1 Tab PO DAILY Reported Omeprazole 20 Mg Capsule.dr 20 Mg PO DAILY Toprol Xl (Metoprolol Succinate) 100 Mg Tab.er.24h 50 Mg PO DAILY Aspirin 81 Mg Tab.chew 1 Tab PO DAILY Atorvastatin Calcium 40 Mg Tablet 1 Tab PO DAILY Lisinopril 40 Mg Tablet 40 Mg PO DAILY Alprazolam 0.5 Mg Tablet 0.5 Mg PO HS PRN Lasix (Furosemide) 20 Mg Tablet 1 Tab PO DAILY Allergies Allergies: Coded Allergies: I S O L A T I O N *CONTACT* (Verified Allergy, Unknown, 02/18/19) +MRSA screen 10-02-16 No Known Medication Allergies (Verified Allergy, Unknown, 08/08/19) ROS Gastrointestinal: Yes Abdominal Pain Physical Exam General: Alert, Oriented X3, Cooperative, No acute distress HEENT: Atraumatic, PERRLA, EOMI Lungs: Clear to auscultation, Normal air movement Heart: RRR Abdomen: Normal bowel sounds, Soft, Other (tender to palpation in epigastric area consistent with where his hernias) Rectal Exam: not examined Extremities: No edema Skin: No significant lesion Neuro: Normal gait Vitals Vitals Vital Signs Date Time Temp Pulse Resp B/P (MAP) Pulse Ox O2 Delivery O2 Flow Rate FiO2 08/09/19 12:10 98.0 66 18 158/74 97 Room Air 98.0 VTE Prophylaxis Ordered VTE Prophylaxis Devices: No VTE Pharmacological Prophylaxi: Yes Assessment/Plan Assessment/Plan Painful epigastric hernia plan robotic-assisted laparoscopic repair with mesh. ISABEL TALAVERA MD Aug 09, 2019 12:31
[2019-08-09] MEDS ORDERED: MINERAL OIL for SURGERY 10 ML VIAL. MC ONE (12:39)
[2019-08-09] MEDS ORDERED: BUPIVACAINE-EPI 0.25%-1:200000 MPF 30 ML VIAL. ONE (12:39)
[2019-08-09] MEDS ORDERED: NEOSTIGMINE METHYLSULFATE 5 MG/5 ML SYRINGE. ONE (13:25)
[2019-08-09] MEDS ORDERED: GLYCOPYRROLATE 1 MG/5 ML VIAL. ONE (13:25)
[2019-08-09] MEDS ORDERED: DEXAMETHASONE SOD PHOS 20 MG/5 ML VIAL. ONE (13:25)
[2019-08-09] MEDS ORDERED: ONDANSETRON PF 4 MG/2 ML VIAL. ONE (13:25)
--- NOTE | 2019-08-09 14:02 | PDOC4 ---
Operative Note Operative Note Date: 08/09/2019 Preoperative diagnosis: Incarcerated umbilical hernia Postoperative diagnosis: Same Procedure: Robotic-assisted laparoscopic umbilical hernia repair with mesh Surgeon: Gabe Specimen: None Dictation: Patient is a 53-year-old gentleman who's complained of a painful bulge just above his umbilicus for several years beginning larger. Procedure of robotic-assisted laparoscopic umbilical hernia repair with mesh was explained to the patient in detail risk benefits were also discussed including bleeding infection injury to intra-abdominal contents possibly necessitating further or open operations alternatives to this procedure also discussed with patient who seemed to understand gave both verbal and written consent had the procedure performed. Patient was taken to the operating room placed in supine position general anesthesia was initiated once patient was sleep and intubated his abdomen was prepped and draped usual sterile fashion using ChloraPrep. An area in the left upper quadrant was injected with quarter percent Marcaine with epinephrine incision was made with an 11 blade scalpel and a Visiport 5 mm camera and port were placed under direct visualization into the abdomen creating pneumoperitoneum abdomen was inspected was noted that there was a hernia at the umbilicus with incarcerated omentum. 8mm da Clara port was placed in the left mid abdomen a 8mm da Clara port was placed in the left lower abdomen and a 5 mm Visiport was changed out for 8 mm da Clara port. The robot was brought in and docked all port sites surgeon went to the robotic console using grasper and Endo Rebeca scissors the omentum was reduced from the hernia defect. The peritoneum was taken off the hernia defect exposing the hernia defect in all. The hernia defect was then closed with a running 20V LOC nonabsorbable suture. The hernia defect was then covered with ventral light ST mesh this was attached to the fascia with a running absorbable V lock suture the peritoneum was closed over the mesh with a running V LOC 20 absorbable suture. The robot was undocked from all port sites ports removed the pneumoperitoneum was reduced all port sites were closed for septic and a Monocryl Mastisol Steri-Strips and island dressings were applied. Patient was awakened and extubated in the operating room taken to recovery in stable condition all sponge instrument needle counts listed as correct estimated blood loss 5 mL ISABEL TALAVERA MD Aug 09, 2019 14:02
--- NOTE | 2019-08-09 14:05 | DISCH ---
DISCHARGE INSTRUCTIONS Condition on Discharge Condition on Discharge: Stable Activity After Discharge Activity Instructions for Disc: Avoid exertion Other activity instructions: no lifting more than 20 pounds for 2 weeks Exercise Instruction after Dis: Progress as tolerated Diet after Discharge Diet after Discharge: Cardiac, No Added Salt Diet Texture: Regular Wound Incision Care Other wound/incision instructi: May shower in 24 hours Contacting the after DC Call your doctor for: If your condition worsens Follow-Up Follow up with: Dr. Talavera in 2 weeks ISABEL TALAVERA MD Aug 09, 2019 14:05
[2019-08-09] MEDS ORDERED: HYDR-3164 PO (14:12)
[2019-08-09] MEDS: fentaNYL PF VIAL 100 MCG/2 ML VIAL IV PRN ×2 (14:25→14:39)
[2019-08-09] MEDS ORDERED: HYDROcodone/APAP 5/325MG 1 TAB TABLET PO ONE (15:15)
[2019-08-09 15:32] VITALS: BP 119/75
== END 2019-08-09 16:11 | disposition home or self-care (01) ==
LOC: SURG 11:12
PROVIDERS: ATTEND Surgery
DX: K42.0 Umbilical hernia with obstruction, without gangrene (principal); I25.10 Atherosclerotic heart disease of native coronary artery without angina pectoris; I11.0 Hypertensive heart disease with heart failure; I50.9 Heart failure, unspecified; I25.2 Old myocardial infarction; E78.5 Hyperlipidemia, unspecified; J44.9 Chronic obstructive pulmonary disease, unspecified; M19.90 Unspecified osteoarthritis, unspecified site; Z95.5 Presence of coronary angioplasty implant and graft; Z82.49 Family history of ischemic heart disease and other diseases of the circulatory system; Z90.49 Acquired absence of other specified parts of digestive tract; Z79.899 Other long term (current) drug therapy; Z79.82 Long term (current) use of aspirin; Z91.041 Radiographic dye allergy status
CPT/HCPCS: 49653; A7015; C1781; J0330; J1100; J2001; J2405; J2704; J2710; J3010; J3490

== ENCOUNTER → 2020-01-18 | Outpatient (CLI) | payer OTHER ==
[~2020-01-18] MED LIST changes: -ACETAMINOPHEN 500 MG TABLET PO ONE; +HYDR-3164 PO; -HYDROmorphone 2 MG/ML VIAL IV PRN; -IV RINGERS,LACTATED 1000ML 1,000 ML IV SCH; -LIDOCAINE 2% PF 5 ML VIAL. ONE; -MORPHINE SULFATE 2 MG/ML VIAL. IV PRN; -ONDANSETRON PF 4 MG/2 ML VIAL. IV PRN; -PROCHLORPERAZINE 10 MG/2 ML VIAL. IV PRN; -PROPOFOL 20 ML IV ONE; -ceFAZolin SODIUM 3 GM in IV DEXTROSE 5% 100ML 100 ML IV PRN; -fentaNYL PF VIAL 100 MCG/2 ML VIAL IV PRN
--- NOTE | 2020-01-18 17:14 | RAD ---
Examination: CT ABDOMEN WO CONTRAST History: Reason: GENERALIZED ABDOMINAL PAIN / Spl. Instructions: NON CONTRAST PER ORDER / History: Comparison/Correlation: 05/27/2019 CT abdomen with oral contrast Findings: Axial images of the abdomen were obtained without contrast. Sagittal and coronal reformatted images were provided. Visualized lung bases are clear. Minimal emphysematous involvement of lung bases noted. There are a few low-attenuation lesions involving the right hepatic lobe which are stable. These probably represent cysts. Mild fatty infiltration of liver is present. Spleen, adrenal glands, and kidneys are unremarkable. Diffuse fatty infiltration of the pancreas is present. Gallbladder fossa is unremarkable. Mild diverticulosis is present involving the colon. No enlarged upper abdominal lymph nodes or ascites. No abdominal aortic aneurysm. Impression: Diverticulosis of the colon is partially seen. No acute or other suspicious process. PQRS Compliance Statement: One or more of the following individualized dose reduction techniques were utilized for this examination: 1. Automated exposure control 2. Adjustment of the mA and/or kV according to patient size 3. Use of iterative reconstruction technique Electronically signed by: Randy Sanchez MD (01/18/2020 5:11 PM) [id number]
== END | disposition home or self-care (01) ==
LOC: CT 16:12
PROVIDERS: ATTEND Family Medicine
DX: K57.30 Diverticulosis of large intestine without perforation or abscess without bleeding (principal); R10.84 Generalized abdominal pain; K76.0 Fatty (change of) liver, not elsewhere classified; J43.9 Emphysema, unspecified
CPT/HCPCS: 74150

== ENCOUNTER → 2021-01-21 | Outpatient (CLI) | payer OTHER ==
[~2021-01-21] MED LIST changes: -AMIO200T4 PO; +AMIO200T6 PO; -LISI-338 PO; +LISI-517 PO; +LISI10TA16 PO; -LISI10TA2 PO
[2021-01-21 12:29] LABS: BASO # 0.1 x10^3/uL (0.0-0.2); BASO % 1 % (0-3); EOS # 0.3 x10^3/uL (0.0-0.7); EOS % 2 % (0-3); HEMATOCRIT 45.5 % (39.0-53.0); LYMPH # 2.7 x10^3/uL (1.0-4.8); LYMPH % 26 % (24-48); MEAN CORPUSCULAR HEMOGLOBIN 33 pg (25-35); MEAN CORPUSCULAR HGB CONC 35 g/dL (31-37); MEAN CORPUSCULAR VOLUME 92 fL (79-100); MONO # 0.8 x10^3/uL (0.0-1.1); MONO % 8 % (0-9); NEUT # 6.6 x10^3/uL (1.8-7.7); NEUT % 63 % (31-73); PLATELET COUNT 259 x10^3/uL (140-400); RED BLOOD COUNT 4.92 x10^6/uL (4.30-5.70); RED CELL DISTRIBUTION WIDTH 13.4 % (11.5-14.5); WHITE BLOOD COUNT 10.5 x10^3/uL (4.0-11.0)
[2021-01-21 12:36] LABS: ALBUMIN 4.1 g/dL (3.4-5.0); CALCIUM 9.2 mg/dL (8.5-10.1); DIRECT BILIRUBIN 0.2 mg/dL (0.0-0.2); MAGNESIUM 2.1 mg/dL (1.8-2.4); POTASSIUM 4.5 mmol/L (3.5-5.1); TOTAL BILIRUBIN 0.7 mg/dL (0.2-1.0); TOTAL PROTEIN 7.1 g/dL (6.4-8.2)
== END ==
LOC: LAB 11:46
PROVIDERS: ATTEND Internal Medicine Cardiovascular Disease
DX: I10 Essential (primary) hypertension (principal); I25.10 Atherosclerotic heart disease of native coronary artery without angina pectoris; R56.9 Unspecified convulsions
CPT/HCPCS: 36415; 80048; 80076; 83735; 85025